=== PATIENT | female | born 1965 | race Caucasian/White ===

== ENCOUNTER 2019-03-02 11:40 | Emergency (ER) | payer SELFPAY ==
[~2019-03-02] VITALS: Ht 175.3 cm; Wt 113.4 kg
--- NOTE | 2019-03-02 11:49 | ED Cough/URI ---
General Chief Complaint: Respiratory Problems Stated Complaint: COUGH; PAIN WITH BREATHING Source: patient Exam Limitations: no limitations History of Present Illness Date Seen by Provider: Mar 02, 2019 Time Seen by Provider: 11:49 Initial Comments 53 yr old female with 42 yr hx of cigarette smoking presents with 2 week hx of nonproductive cough, sore throat and congestion. No hemoptysis or chest pain. Denies fever or chills. Has not improved with Azalea Cameron. No other home treatment. Allergies and Home Medications Allergies Coded Allergies: Penicillins (Verified Allergy, Unknown, 03/02/19) Patient Home Medication List Home Medication List Reviewed: Yes Review of Systems Review of Systems Constitutional: malaise EENTM: nose congestion Respiratory: see HPI Cardiovascular: no symptoms reported Gastrointestinal: no symptoms reported Genitourinary: no symptoms reported : No Musculoskeletal: no symptoms reported Skin: no symptoms reported Psychiatric/Neurological: No Symptoms Reported Hematologic/Lymphatic: No Symptoms Reported Immunological/Allergic: no symptoms reported Past Xqlbcdr-Bcoxsx-Btjkxb Hx Past Med/Social Hx: Reviewed Nursing Past Med/Soc Hx Physical Exam Vital Signs - First Documented 03/02/19 11:44 Temp 98.4 Pulse 60 Resp 20 B/P (MAP) 140/73 (95) Pulse Ox 94 Capillary Refill : Height: '" Weight: lbs. oz. kg; BMI Method: General Appearance: WD/WN, no apparent distress, obese Eyes: Right Eye Normal Inspection, Right Eye PERRL, Right Eye EOMI, Right Eye Abnormal EOM; Bilateral Eye Normal Inspection, Bilateral Eye PERRL, Bilateral Eye EOMI HEENT: PERRL/EOMI, normal ENT inspection, TMs normal, pharynx normal; No scleral icterus (R) Neck: non-tender, full range of motion, supple, normal inspection, carotid bruit Respiratory: chest non-tender, rhonchi (diffusely); No wheezing Cardiovascular: normal peripheral pulses, regular rate, rhythm, no edema, no gallop, no JVD, no murmur Gastrointestinal: normal bowel sounds, non tender, soft, no organomegaly, no pulsatile mass Extremities: normal range of motion, non-tender, normal inspection, no pedal edema, no calf tenderness, normal capillary refill, pelvis stable Neurologic/Psychiatric: waxer tender II-XII nml as tested, no motor/sensory deficits, alert, normal mood/affect, oriented x 3 Skin: normal color, warm/dry Lymphatic: no adenopathy Progress/Results/Core Measures Suspected Sepsis SIRS Temperature: Pulse: Respiratory Rate: Laboratory Tests 03/02/19 12:05: White Blood Count 10.1 Blood Pressure / Mean: Laboratory Tests 03/02/19 12:05: Creatinine 1.08, Platelet Count 236, Total Bilirubin 0.3 Results/Orders Lab Results Laboratory Tests Test 03/02/19 12:05 Range/Units White Blood Count 10.1 4.3-11.0 10^3/uL Red Blood Count 4.59 4.35-5.85 10^6/uL Hemoglobin 14.6 11.5-16.0 G/DL Hematocrit 44 35-52 % Mean Corpuscular Volume 95 80-99 FL Mean Corpuscular Hemoglobin 32 25-34 PG Mean Corpuscular Hemoglobin Concent 33 32-36 G/DL Red Cell Distribution Width 12.3 10.0-14.5 % Platelet Count 236 130-400 10^3/uL Mean Platelet Volume 10.6 H 7.4-10.4 FL Neutrophils (%) (Auto) 65 42-75 % Lymphocytes (%) (Auto) 25 12-44 % Monocytes (%) (Auto) 7 0-12 % Eosinophils (%) (Auto) 2 0-10 % Basophils (%) (Auto) 1 0-10 % Neutrophils # (Auto) 6.5 1.8-7.8 X 10^3 Lymphocytes # (Auto) 2.6 1.0-4.0 X 10^3 Monocytes # (Auto) 0.7 0.0-1.0 X 10^3 Eosinophils # (Auto) 0.2 0.0-0.3 10^3/uL Basophils # (Auto) 0.1 0.0-0.1 10^3/uL Sodium Level 141 135-145 MMOL/L Potassium Level 4.0 3.6-5.0 MMOL/L Chloride Level 105 98-107 MMOL/L Carbon Dioxide Level 16 L 21-32 MMOL/L Anion Gap 20 H 5-14 MMOL/L Blood Urea Nitrogen 14 7-18 MG/DL Creatinine 1.08 0.60-1.30 MG/DL Estimat Glomerular Filtration Rate 53 BUN/Creatinine Ratio 13 Glucose Level 108 H 70-105 MG/DL Calcium Level 9.3 8.5-10.1 MG/DL Corrected Calcium 9.1 8.5-10.1 MG/DL Total Bilirubin 0.3 0.1-1.0 MG/DL Aspartate Amino Transf (AST/SGOT) 15 5-34 U/L Alanine Aminotransferase (ALT/SGPT) 12 0-55 U/L Alkaline Phosphatase 83 40-136 U/L Total Protein 7.4 6.4-8.2 GM/DL Albumin 4.3 3.2-4.5 GM/DL My Orders Orders - LITA PORTILLO MD Cbc With Automated Diff (03/02/19 11:55) Comprehensive Metabolic Panel (03/02/19 11:55) Chest 1 View Ap/Pa Only (03/02/19 11:55) Albuterol/Ipra Inhalation Soln (Duoneb I (03/02/19 12:00) Ekg Tracing (03/02/19 11:55) Monitor-Rhythm Ecg Trace Only (03/02/19 11:55) Svn Small Volume Nebulizer (03/02/19 11:55) Medications Given in ED Current Medications Medications Dose Ordered Sig/Jackson Route Start Time Stop Time Status Last Admin Dose Admin Albuterol/ Ipratropium 3 ml ONCE ONCE INH 03/02/19 12:00 03/02/19 12:04 DC 03/02/19 12:01 3 ML Vital Signs/I&O 03/02/19 11:44 Temp 98.4 Pulse 60 Resp 20 B/P (MAP) 140/73 (95) Pulse Ox 94 Capillary Refill : ECG Initial ECG Impression Date: Mar 02, 2019 Initial ECG Impression Time: 12:14 Initial ECG Rhythm: Normal Sinus Initial ECG Intervals: Normal Initial ECG Impression: Nonspecific Changes Initial ECG Comparisson: No Previous ECG Available Comment Will administer breathing treatment and obtain CXR and labs. Discussed plan with patient who understands and agrees. 1230 Breathing better after RT. Discussed test results and pending results. I anticipate discharge with abx and inhaler. 1251 Reviewed results. Pt very concerned about costs as she does not have insurance. She is PCN allergic so will RX Doxycycline and Albuterol inhaler. Diagnostic Imaging Diagonstic Imaging: Xray Plain Films/CT/US/NM/MRI: chest Comments NAME: VICTOR HUGO ASHRAF [facility] REC#: [id number] PT STATUS: REG ER : 1965 PHYSICIAN: LITA PORTILLO MD ADMIT DATE: 03/02/19/ER FS Draft Date of Exam:03/02/19 CHEST 1 VIEW AP/PA ONLY INDICATION: Chest pain and difficulty breathing Frontal chest obtained at 12 o'clock hours There is no prior study for comparison. There is cardiomegaly with mild central vascular prominence. There is hyperinflation compatible with COPD. There are chronic appearing increased interstitial markings. There is no pneumothorax or pleural fluid. IMPRESSION: Cardiomegaly with mild central vascular prominence with hyperinflation. No focal infiltrate or pneumothorax or pleural fluid. Dictated on workstation # [id number] Dict: 03/02/19 1223 Trans: 03/02/[address] [facility] [id number] Interpreted by: MANISHA CANCINO MD Electronically signed by: Departure Impression Primary Impression: Acute bronchitis Qualified Codes: J20.9 - Acute bronchitis, unspecified Additional Impressions: COPD (chronic obstructive pulmonary disease) Qualified Codes: J44.0 - Chronic obstructive pulmonary disease with acute lower respiratory infection URI (upper respiratory infection) Qualified Codes: J06.9 - Acute upper respiratory infection, unspecified Disposition: 01 HOME, SELF-CARE Condition: Improved Departure-Patient Inst. Decision time for Depature: 12:49 Referrals: NO,LOCAL PHYSICIAN (PCP/Family) Primary Care Physician 2-3 days, sooner if needed Patient Instructions: Exacerbation of COPD, Acute Bronchitis, Adult (DC) Scripts Albuterol Sulfate (VENTOLIN HFA) 1 Puff Puff 2 PUFF INH Q4H, #1 PUFF 1 PUFF = 90 MCG Prov: LITA PORTILLO MD 03/02/19 Doxycycline Hyclate (Doxycycline Hyclate) 100 Mg Tablet 100 MG PO BID, #20 TAB 0 Refills Prov: LITA PORTILLO MD 03/02/19 LITA PORTILLO MD Mar 02, 2019 11:49
[2019-03-02] MEDS ORDERED: RT-ALBUTEROL/IPRATROPIUM 3 ML (DUONEB) VIAL INH ONE (12:00)
[2019-03-02 12:21] LABS: BASOPHILS % (AUTO) 1 % (0-10); EOSINOPHILS % (AUTO) 2 % (0-10); HEMATOCRIT 44 % (35-52); HEMOGLOBIN 14.6 G/DL (11.5-16.0); LYMPHOCYTES # (AUTO) 2.6 X 10^3 (1.0-4.0); LYMPHOCYTES % (AUTO) 25 % (12-44); MEAN CORPUSCULAR HEMOGLOBIN 32 PG (25-34); MEAN CORPUSCULAR HGB CONC 33 G/DL (32-36); MEAN CORPUSCULAR VOLUME 95 FL (80-99); MEAN PLATELET VOLUME 10.6 FL (7.4-10.4); MONOCYTES % (AUTO) 7 % (0-12); NEUTROPHILS # (AUTO) 6.5 X 10^3 (1.8-7.8); NEUTROPHILS % (AUTO) 65 % (42-75); PLATELET COUNT 236 10^3/uL (130-400); RED CELL DISTRIBUTION WIDTH 12.3 % (10.0-14.5); WHITE BLOOD COUNT 10.1 10^3/uL (4.3-11.0)
[2019-03-02 12:22] LABS: BASOPHILS # (AUTO) 0.1 10^3/uL (0.0-0.1); EOSINOPHILS # (AUTO) 0.2 10^3/uL (0.0-0.3); MONOCYTES # (AUTO) 0.7 X 10^3 (0.0-1.0)
--- NOTE | 2019-03-02 12:26 | Diagnostic Imaging Report ---
INDICATION: Chest pain and difficulty breathing Frontal chest obtained at 12 o'clock hours There is no prior study for comparison. There is cardiomegaly with mild central vascular prominence. There is hyperinflation compatible with COPD. There are chronic appearing increased interstitial markings. There is no pneumothorax or pleural fluid. IMPRESSION: Cardiomegaly with mild central vascular prominence with hyperinflation. No focal infiltrate or pneumothorax or pleural fluid. Dictated by: Dictated on workstation # [id number]
[2019-03-02 12:41] LABS: ALBUMIN 4.3 GM/DL (3.2-4.5); BILIRUBIN,TOTAL 0.3 MG/DL (0.1-1.0); CALCIUM 9.3 MG/DL (8.5-10.1); CREATININE SERUM 1.08 MG/DL (0.60-1.30); TOTAL PROTEIN 7.4 GM/DL (6.4-8.2)
[2019-03-02] MEDS ORDERED: RT-ALBUINH INH (12:51)
[2019-03-02] MEDS ORDERED: DOXY100T2 PO (12:51)
[2019-03-02 12:58] VITALS: BP 108/58
== END 2019-03-02 13:00 | disposition home or self-care (01) ==
LOC: ER FS 11:42
DX: J44.1 Chronic obstructive pulmonary disease with (acute) exacerbation (principal); J20.9 Acute bronchitis, unspecified; J44.0 Chronic obstructive pulmonary disease with (acute) lower respiratory infection; Z88.0 Allergy status to penicillin; Z87.891 Personal history of nicotine dependence
CPT/HCPCS: 36415; 71045; 80053; 85025; 93005

== ENCOUNTER 2021-09-20 14:17 | Emergency (ER) | payer OTHER ==
[~2021-09-20] VITALS: Ht 172.7 cm; Wt 110.5 kg
[~2021-09-20 14:17] MED LIST: DOXY100T2 PO; RT-ALBUINH INH
[2021-09-20] MEDS ORDERED: ASPIRIN 81 MG CHEW (CHILDREN'S ASA) PO ONE (14:45)
--- NOTE | 2021-09-20 14:45 | Diagnostic Imaging Report ---
INDICATION: Shortness of breath and leg swelling. TECHNIQUE/COMPARISON: A frontal chest was obtained at 2:23 PM and compared to 03/02/2019. FINDINGS: There is marked cardiomegaly. There is minimal central vascular prominence. There is no focal infiltrate. There is some mild right basilar atelectasis in the costophrenic angle. There is no pleural fluid or pneumothorax. IMPRESSION: Prominent cardiomegaly with mild central vascular prominence. There is some mild atelectatic change or scarring in the right costophrenic angle. Dictated by: Dictated on workstation # [id number]
--- NOTE | 2021-09-20 14:50 | ED Chest Pain ---
General Chief Complaint: Respiratory Problems Stated Complaint: SOB; CHEST TIGHTNESS Source: patient Exam Limitations: no limitations History of Present Illness Date Seen by Provider: Sep 20, 2021 Time Seen by Provider: 14:20 Initial Comments Here with shortness of breath chest tightness that has worsened over the last 12 to 24 hours. She has had several weeks of bronchitis symptoms that are waxing and waning. She was treated with antibiotic and steroid and then got better. She then got a little worse and so the clinic. They did labs and a chest x-ray and thought that she may have some heart failure component set her up with cardiology in November but no new therapy. Patient is quite anxious related to heart stuff and wants to make sure she is not dying from heart attack. Does admit that she is having increased breathing problem. She does smoke but is down from 2 packs a day to 1/2 pack daily over the last month. She has a 44- year history of smoking. Denies fever chills. Denies nausea or vomiting. Reports chest pain is an aching tightness feeling and that has persisted. Nonradiating. Timing/Duration: changing over time (Last 4 weeks), 12-24 hours Severity/Quality: moderate, aching Location: central Radiation: no radiation Activities at Onset: none Prior CP/Workup: no prior cardiac workup ASA po VULCANIZING PRESS OPERATOR: No NTG SL VULCANIZING PRESS OPERATOR: No Associated Symptoms: No abdominal pain, No back pain, No diaphoresis; edema (Mild bilateral lower extremities although better now than previous per the patient.); No fever/chills, No nausea/vomiting; shortness of breath; No weakness Allergies and Home Medications Allergies Coded Allergies: Penicillins (Verified Allergy, Unknown, 03/02/19) Patient Home Medication List Home Medication List Reviewed: Yes Albuterol Sulfate (Ventolin Hfa) 1 Puff Puff, 2 PUFF INH Q4H Prescribed by: LITA PORTILLO on 03/02/19 1251 Doxycycline Hyclate (Doxycycline Hyclate) 100 Mg Tablet, 100 MG PO BID Prescribed by: LITA PORTILLO on 03/02/19 1251 Review of Systems Review of Systems Constitutional: see HPI; No chills, No fever EENTM: No Symptoms Reported Respiratory: See HPI, Cough Cardiovascular: Chest Pain, Edema Gastrointestinal: Denies Diarrhea, Denies Nausea, Denies Vomiting Genitourinary: No Symptoms Reported Musculoskeletal: no symptoms reported Skin: no symptoms reported Psychiatric/Neurological: Anxiety; Denies Headache All Other Systems Reviewed Negative Unless Noted: Yes Past Drrsdxl-Zatmvf-Zakwfz Hx Patient Social History Tobacco Use?: Yes Tobacco type used: Cigarettes Smoking Status: Current Everyday Smoker Use of E-Cig and/or Vaping dev: No Substance use?: Yes Substance type: Marijuana Alcohol Use?: No Pt feels they are or have been: No Immunizations Up To Date First/Initial COVID19 Vaccinat: Not currently vaccinated Seasonal Allergies Seasonal Allergies: No Past Medical History Surgery/Hospitalization HX: COPD Hysterectomy Respiratory: Yes COPD Cardiac: No Neurological: No Genitourinary: No Gastrointestinal: No Musculoskeletal: No Endocrine: No HEENT: No Cancer: No Psychosocial: No Family Medical History Reviewed Nursing Family Hx Physical Exam Vital Signs Vital Signs - First Documented 09/20/21 14:24 Temp 36.0 Pulse 116 Resp 18 B/P (MAP) 153/99 (117) Pulse Ox 95 O2 Delivery Room Air Capillary Refill : Less Than 3 Seconds Height, Weight, BMI Height: 5'9.00" Weight: 250lbs. oz. 113.855045qs; BMI Method:Stated General Appearance: WD/WN, Anxious HEENT: PERRL/EOMI, Pharynx Normal Neck: Non Tender, Supple Respiratory: Wheezing (Bilateral), Other (Coarse sounds with cough or talking) Cardiovascular: No Murmur, Tachycardia Gastrointestinal: Non Tender, Soft Extremity: Normal Range of Motion, Non Tender Neurologic/Psychiatric: Alert, Oriented x3 Skin: Normal Color, Warm/Dry Progress/Results/Core Measures Results/Orders Lab Results Laboratory Tests Test 09/20/21 14:35 Range/Units White Blood Count 7.8 4.3-11.0 10^3/uL Red Blood Count 4.61 3.80-5.11 10^6/uL Hemoglobin 14.8 11.5-16.0 g/dL Hematocrit 43 35-52 % Mean Corpuscular Volume 93 80-99 fL Mean Corpuscular Hemoglobin 32 25-34 pg Mean Corpuscular Hemoglobin Concent 35 32-36 g/dL Red Cell Distribution Width 12.0 10.0-14.5 % Platelet Count 222 130-400 10^3/uL Mean Platelet Volume 10.7 9.0-12.2 fL Immature Granulocyte % (Auto) 0 % Neutrophils (%) (Auto) 59 42-75 % Lymphocytes (%) (Auto) 33 12-44 % Monocytes (%) (Auto) 7 0-12 % Eosinophils (%) (Auto) 1 0-10 % Basophils (%) (Auto) 0 0-10 % Neutrophils # (Auto) 4.5 1.8-7.8 X 10^3 Lymphocytes # (Auto) 2.5 1.0-4.0 X 10^3 Monocytes # (Auto) 0.6 0.0-1.0 X 10^3 Eosinophils # (Auto) 0.1 0.0-0.3 10^3/uL Basophils # (Auto) 0.0 0.0-0.1 10^3/uL Immature Granulocyte # (Auto) 0.0 0.0-0.1 10^3/uL Prothrombin Time 12.3 12.2-14.7 SEC INR Comment 0.9 0.8-1.4 Activated Partial Thromboplast Time 26 24-35 SEC Sodium Level 140 135-145 MMOL/L Potassium Level 4.6 3.6-5.0 MMOL/L Chloride Level 106 98-107 MMOL/L Carbon Dioxide Level 25 21-32 MMOL/L Anion Gap 9 5-14 MMOL/L Blood Urea Nitrogen 14 7-18 MG/DL Creatinine 1.15 0.60-1.30 MG/DL Estimat Glomerular Filtration Rate 49 BUN/Creatinine Ratio 12 Glucose Level 116 H 70-105 MG/DL Calcium Level 10.4 H 8.5-10.1 MG/DL Corrected Calcium 10.1 8.5-10.1 MG/DL Magnesium Level 1.5 L 1.6-2.4 MG/DL Total Bilirubin 0.3 0.1-1.0 MG/DL Aspartate Amino Transf (AST/SGOT) 17 5-34 U/L Alanine Aminotransferase (ALT/SGPT) 11 0-55 U/L Alkaline Phosphatase 69 40-136 U/L Myoglobin 31.6 10.0-92.0 NG/ML Troponin I < 0.30 <0.30 NG/ML Pro-B-Type Natriuretic Peptide 6254.0 H <75.0 PG/ML Total Protein 7.1 6.4-8.2 GM/DL Albumin 4.4 3.2-4.5 GM/DL My Orders Orders - MILES NESS MD Cbc With Automated Diff (09/20/21 14:33) Magnesium (09/20/21 14:33) Chest 1 View Ap/Pa Only (09/20/21 14:33) Ekg Tracing (09/20/21 14:33) Comprehensive Metabolic Panel (09/20/21 14:33) Myoglobin Serum (09/20/21 14:33) Protime With Inr (09/20/21 14:33) Partial Thromboplastin Time (09/20/21:33) O2 (09/20/21 14:33) Monitor-Rhythm Ecg Trace Only (09/20/21 14:33) Lipid Panel (09/21/21 06:00) Aspirin Chewable Tablet (Baby Aspirin Ch (09/20/21 14:45) Ed Iv/Invasive Line Start (09/20/21 14:33) Troponin I Fs (09/20/21 14:33) Probnp Fs (09/20/21 14:33) Furosemide Injection (Lasix Injection) (09/20/21 15:30) Medications Given in ED Current Medications Medications Dose Ordered Sig/Jackson Route Start Time Stop Time Status Last Admin Dose Admin Aspirin 324 mg ONCE ONCE PO 09/20/21 14:45 09/20/21 14:46 DC 09/20/21 14:40 324 MG Vital Signs/I&O 09/20/21 14:24 Temp 36.0 Pulse 116 Resp 18 B/P (MAP) 153/99 (117) Pulse Ox 95 O2 Delivery Room Air Progress Progress Note : Progress Note Seen and evaluated. IV, labs, EKG and chest x-ray ordered. ASA 324 mg p.o. ordered. Monitor patient. 1533: I have discussed the case with Dr. Durbin. He will see her tomorrow in clinic. Recommends Lasix 40 mg IV now and continue outpatient. We will also prescribe magnesium oxide 4 mg daily for 7 days as well as potassium 10 mEq daily for 7 days. I will give short course of prednisone as I believe she does have mild COPD exacerbation. She does have albuterol inhalers. I discussed all this with the patient was very appreciative. Discharged home with return precautions. Patient verbalized understanding instructions and agreement with plan. I did discuss with her about smoking cessation including following up with her doctor for assistance with tobacco cessation. She states that she will. Initial ECG Impression Date: Sep 20, 2021 Initial ECG Impression Time: 14:20 Initial ECG Rate: 112 Initial ECG Rhythm: S.Tach Comment Sinus tachycardia with leftward axis. Left bundle branch block noted. Similar but progressed bundle branch block from 03/02/2019. No evidence of ST elevation GA. Interpreted by me. Diagnostic Imaging Diagonstic Imaging: Xray Plain Films/CT/US/NM/MRI: chest Comments [facility] [place] NAME: VICTOR HUGO ASHRAF [facility] REC#: [id number] PT STATUS: REG ER : 1965 PHYSICIAN: MILES NESS MD ADMIT DATE: 09/20/21/ER FS Draft Date of Exam:09/20/21 CHEST 1 VIEW AP/PA ONLY INDICATION: Shortness of breath and leg swelling. TECHNIQUE/COMPARISON: A frontal chest was obtained at 2:23 PM and compared to 03/02/2019. FINDINGS: There is marked cardiomegaly. There is minimal central vascular prominence. There is no focal infiltrate. There is some mild right basilar atelectasis in the costophrenic angle. There is no pleural fluid or pneumothorax. IMPRESSION: Prominent cardiomegaly with mild central vascular prominence. There is some mild atelectatic change or scarring in the right costophrenic angle. Dictated on workstation # [id number] Dict: 09/20/21 1444 Trans: 09/20/21 1445 [id number] Interpreted by: MANISHA CANCINO MD Electronically signed by: Departure Impression Primary Impression: Acute heart failure Qualified Codes: I50.9 - Heart failure, unspecified Additional Impressions: COPD exacerbation Heavy tobacco smoker Disposition: 01 HOME, SELF-CARE Condition: Stable Departure-Patient Inst. Decision time for Depature: 15:34 Referrals: [facility] (PCP) Primary Care Physician SACHIN DURBIN MD [facility] Patient Instructions: Chronic Obstructive Pulmonary Disease (COPD) (DC), Heart Failure, Adult (DC), Quitting Smoking ED Add. Discharge Instructions: All discharge instructions reviewed with patient and/or family. Voiced understanding. Fill prescriptions and take the magnesium oxide and prednisone tonight. We will start the other medications daily tomorrow. Call Dr. Durbin's office in the morning for appointment same day. Let them know that your case was discussed with him and he would like to see you in a same-day appointment. You should call and make appointment with your doctor to discuss smoking cessation and get smoking cessation help. Return for worse pain, fever, vomiting, weakness, breathing problems or other concerns as needed. Scripts Prednisone (Prednisone) 20 Mg Tab 40 MG PO DAILY, #8 TAB 0 Refills Prov: MILES NESS MD 09/20/21 Potassium Chloride (Potassium Chloride) 10 Meq Capsule.er 10 MEQ PO DAILY for 7 Days, #7 CAP 0 Refills Prov: MILES NESS MD 09/20/21 Furosemide (Lasix) 40 Mg Tablet 40 MG PO DAILY, #7 TAB Prov: MILES NESS MD 09/20/21 Magnesium Oxide (Magnesium Oxide) 400 Mg Tablet 400 MG PO BID, #14 TAB Prov: MILES NESS MD 09/20/21 Copy Copies To 1: SACHIN DURBIN MD FACP [facility] MILES NESS MD Sep 20, 2021 14:50
[2021-09-20 14:52] LABS: BASOPHILS % (AUTO) 0 % (0-10); EOSINOPHILS % (AUTO) 1 % (0-10); HEMATOCRIT 43 % (35-52); HEMOGLOBIN 14.8 g/dL (11.5-16.0); LYMPHOCYTES # (AUTO) 2.5 X 10^3 (1.0-4.0); LYMPHOCYTES % (AUTO) 33 % (12-44); MEAN CORPUSCULAR HEMOGLOBIN 32 pg (25-34); MEAN CORPUSCULAR HGB CONC 35 g/dL (32-36); MEAN CORPUSCULAR VOLUME 93 fL (80-99); MEAN PLATELET VOLUME 10.7 fL (9.0-12.2); MONOCYTES % (AUTO) 7 % (0-12); NEUTROPHILS # (AUTO) 4.5 X 10^3 (1.8-7.8); NEUTROPHILS % (AUTO) 59 % (42-75); PLATELET COUNT 222 10^3/uL (130-400); WHITE BLOOD COUNT 7.8 10^3/uL (4.3-11.0)
[2021-09-20 14:53] LABS: EOSINOPHILS # (AUTO) 0.1 10^3/uL (0.0-0.3); MONOCYTES # (AUTO) 0.6 X 10^3 (0.0-1.0)
[2021-09-20 14:59] LABS: INR 0.9 (0.8-1.4); PROTHROMBIN TIME PATIENT 12.3 SEC (12.2-14.7)
[2021-09-20 15:11] LABS: BILIRUBIN,TOTAL 0.3 MG/DL (0.1-1.0); CALCIUM 10.4 MG/DL (8.5-10.1); CREATININE SERUM 1.15 MG/DL (0.60-1.30); MAGNESIUM 1.5 MG/DL (1.6-2.4); POTASSIUM 4.6 MMOL/L (3.6-5.0)
[2021-09-20 15:12] LABS: ALBUMIN 4.4 GM/DL (3.2-4.5); TOTAL PROTEIN 7.1 GM/DL (6.4-8.2)
[2021-09-20] MEDS ORDERED: FUROSEMIDE 40 MG/4 ML INJ (LASIX) IVP ONE (15:30)
[2021-09-20] MEDS ORDERED: MAGN400T50 PO (15:41)
[2021-09-20] MEDS ORDERED: POTA10CA43 PO (15:41)
[2021-09-20] MEDS ORDERED: PRD20T PO (15:41)
[2021-09-20] MEDS ORDERED: FURO-124 PO (15:41)
[2021-09-20 16:10] VITALS: BP 148/79
== END 2021-09-20 16:10 | disposition home or self-care (01) ==
LOC: EDUNIT# 14:17 → ER FS 14:19
DX: I50.9 Heart failure, unspecified (principal); J44.1 Chronic obstructive pulmonary disease with (acute) exacerbation; R00.0 Tachycardia, unspecified; F17.210 Nicotine dependence, cigarettes, uncomplicated
CPT/HCPCS: 36415; 71045; 80053; 83735; 83874; 83880; 84484; 85025; 85610; 85730; 93005; 93041

== ENCOUNTER 2021-10-03 08:00 | Inpatient (IN) | payer OTHER ==
[~2021-10-03] VITALS: Ht 175.2 cm; Wt 110.1 kg
[2021-10-03] VITALS (16 sets, daily range): BP systolic 89–126; BP diastolic 47–78
[2021-10-03] MEDS: NS IV 1000 ML 1,000 ML IV SCH ×3 (07:22→23:40)
[2021-10-03 07:34] LABS: HEMATOCRIT 49 % (35-52); HEMOGLOBIN 16.5 g/dL (11.5-16.0); MEAN CORPUSCULAR HEMOGLOBIN 32 pg (25-34); MEAN CORPUSCULAR HGB CONC 34 g/dL (32-36); MEAN CORPUSCULAR VOLUME 95 fL (80-99); MEAN PLATELET VOLUME 10.9 fL (9.0-12.2); PLATELET COUNT 231 10^3/uL (130-400); WHITE BLOOD COUNT 8.3 10^3/uL (4.3-11.0)
[2021-10-03 07:49] LABS: PROTHROMBIN TIME PATIENT 13.7 SEC (12.2-14.7)
[2021-10-03 07:51] LABS: ALBUMIN 4.7 GM/DL (3.2-4.5); CHLORIDE 104 MMOL/L (98-107); POTASSIUM 3.9 MMOL/L (3.6-5.0); SODIUM 142 MMOL/L (135-145)
[2021-10-03 07:52] LABS: CALCIUM 9.8 MG/DL (8.5-10.1)
[2021-10-03 07:53] LABS: TRIGLYCERIDES 170 MG/DL (<150); VLDL CHOLESTEROL 34 MG/DL (5-40)
[2021-10-03 07:54] LABS: GLUCOSE 107 MG/DL (70-105); TOTAL PROTEIN 7.8 GM/DL (6.4-8.2)
[2021-10-03 07:55] LABS: BILIRUBIN,TOTAL 0.7 MG/DL (0.1-1.0); CARBON DIOXIDE 25 MMOL/L (21-32)
[2021-10-03 07:57] LABS: ALKALINE PHOSPHATASE 67 U/L (40-136); CREATININE SERUM 1.36 MG/DL (0.60-1.30); GFR ESTIMATED 40
[2021-10-03 07:58] LABS: BUN/CREATININE RATIO 19; CHOLESTEROL 240 MG/DL (< 200)
[2021-10-03 07:59] LABS: HDL CHOLESTEROL 38 MG/DL (40-60)
[2021-10-03 08:00] LABS: ALANINE AMINOTRANSFERASE 19 U/L (0-55)
[~2021-10-03 08:00] MED LIST changes: +ASPI-999 PO; +FURO-124 PO; +FURO40TA4 PO; +HEParin (CATH LAB) 2,000 ML IV ONE; +LIDOCAINE 1% INJ 20 ML 20 ML VIAL ONE; +MAGN400T50 PO; +MAGN400T7 PO; +METO-333 PO; +NS IV 1000 ML 1,000 ML ONE; +POTA10CA43 PO; +POTA10TA37 PO; +PRD20T PO
[2021-10-03] MEDS ORDERED: fentaNYL INJ 100 MCG/2 ML AMP ONE (08:08)
[2021-10-03] MEDS ORDERED: MIDAZOLAM 5 MG/5 ML (VERSED) VIAL ONE (08:08)
--- NOTE | 2021-10-03 09:17 | Cardiac Procedure Note-CS/ASA ---
Pre-Procedure Note Pre-Op Procedure Note H&P Reviewed The H&P was reviewed, patient examined and no changes noted. Date H&P Reviewed: Oct 03, 2021 Time H&P Reviewed: 08:45 Conscious Sedation Pre-Proced Time 08:45 ASA Score 4 For ASA 3 and 4: Consider anesthesia and medical clearance. Also, for patients with a history of failed moderate sedation consider anesthesia. Airway Lungs Heart ASA score ASA 1: a normal healthy patient ASA 2: a patient with a mild systemic disease (mid diabetes, controlled hypertension, obesity ASA 3: a patient with a severe systemic disease that limits activity (angina, COPD, prior Myocardial infarction) ASA 4: a patient with an incapacitating disease that is a constant threat to life (CHF, renal failure) ASA 5: a moribund patient not expected to survive 24 hrs. (ruptured aneurysm) ASA 6: a declared brain- patient whose organs are being harvested. For emergent operations, add the letter E after the classification Mallampati Classification Grade 2 Sedation Plan Analgesia, Amnesia, Plan communicated to team members, Discussed options with patient/fam, Discussed risks with patient/fam The patient is an appropriate candidate to undergo the planned procedure, sedation, and anesthesia. The patient immediately re-assessed prior to indication. SACHIN COLEMAN MD FACP FAC [facility] Oct 03, 2021 09:17
--- NOTE | 2021-10-03 09:42 | Cardiology History & Physical ---
HPI-Cardiology Cardiology H&P Date of Admission 10-03-21 Primary Care Physician Magdy Gonsalez - [facility] Of Attending Physician Alyson Durbin MD Facp Fac [facility] Consulting Physician KAREN Ms. Maharaj is a 56 yr old female being admitted to ICU 10 post cardiac cath d/t NICM with acute systolic heart failure. She had presented with progressive dyspnea, lower extremity swelling, chest discomfort and new onset of congestive heart failure on Sep 20 to the [facility] ED. She is currently reporting SOB. No c/o palpitations, syncope, near syncope or LE swelling at this time. Review of Systems-Cardiology Review of Systems Constitutional: No chills, No fever Eyes: No vision change Ears/Nose/Throat: No epistaxis, No recent hearing loss Respiratory: As described under HPI Cardiovascular: As described under HPI Gastrointestinal: No constipation, No diarrhea, No nausea, No vomiting Genitourinary: No dysuria Musculoskeletal: no symptoms reported Skin: No rash on exposed areas, No ulcerations on exposed areas Psychiatric/Neurological: No focal weakness, No syncope Hematologic: No bleeding abnormalities [id number]-[id number] Hx Patient Social History 2nd Hand Smoke Exposure: Yes Past Medical History PMH As described under Assessment. Family Medical History Family Medical History: No known h/o CAD or SCD. Allergies and Home Medications Allergies Coded Allergies: Penicillins (Verified Allergy, Unknown, 03/02/19) Patient Home Medication List Aspirin (Aspirin) 81 Mg Tab.chew, 81 MG PO DAILY, (Reported) Entered as Reported by: YAN WEBER on 10/03/21737 Last Action: Continued Furosemide (Furosemide) 40 Mg Tablet, 40 MG PO DAILY, (Reported) Entered as Reported by: YAN WEBER on 10/03/21737 Last Action: Held Magnesium Oxide (Magnesium Oxide) 400 Mg Tablet, 400 MG PO DAILY, (Reported) Entered as Reported by: YAN WEBER on 10/03/21737 Last Action: Converted Metoprolol Tartrate (Metoprolol Tartrate) 25 Mg Tablet, 25 MG PO BID, (Reported) Entered as Reported by: YAN WEBER on 10/03/21737 Last Action: Held Potassium Chloride (Potassium Chloride) 10 Meq Tab.er.prt, 10 MEQ PO DAILY, (Reported) Entered as Reported by: AYN WEBER on 10/03/21737 Last Action: Held Discontinued Medications Albuterol Sulfate (Ventolin Hfa) 1 Puff Puff, 2 PUFF INH Q4H Discontinued Reason: No Longer Taking Prescribed by: LITA PORTILLO on 03/02/191250 Last Action: Discontinued Doxycycline Hyclate (Doxycycline Hyclate) 100 Mg Tablet, 100 MG PO BID Discontinued Reason: Referral/FU Appt-Addtl Prescribed by: LITA PORTILLO on 03/02/191250 Last Action: Discontinued Furosemide (Lasix) 40 Mg Tablet, 40 MG PO DAILY Discontinued Reason: Duplicate Order Prescribed by: MILES NESS on 09/20/211540 Last Action: Discontinued Magnesium Oxide (Magnesium Oxide) 400 Mg Tablet, 400 MG PO BID Discontinued Reason: Duplicate Order Prescribed by: MILES NESS on 09/20/211540 Last Action: Discontinued Potassium Chloride (Potassium Chloride) 10 Meq Capsule.er, 10 MEQ PO DAILY Discontinued Reason: Duplicate Order Prescribed by: MILES NESS on 09/20/211540 Last Action: Discontinued Prednisone (Prednisone) 20 Mg Tab, 40 MG PO DAILY Discontinued Reason: No Longer Taking Prescribed by: MILES NESS on 09/20/211540 Last Action: Discontinued Physical Exam-Cardiology Physical Exam Vital Signs/I&O 10/03/21 10/03/21 10/04/21 10/04/21 21:00 21:00 00:00 01:00 Pulse 89 66 74 Resp 18 B/P (MAP) 96/60 (72) 104/64 (77) Pulse Ox 91 92 90 O2 Delivery Nasal Cannula Nasal Cannula Nasal Cannula O2 Flow Rate 2.00 2.00 2.00 10/04/21 10/04/21 10/04/21 04:00 07:00 07:49 Temp 36.2 Pulse 77 77 Resp 29 B/P (MAP) 94/53 (67) Pulse Ox 89 O2 Delivery Nasal Cannula O2 Flow Rate 2.00 10/04/21 00:00 Intake Total 2090 ml Balance 2090 ml Capillary Refill : Constitutional: AAO x 3, well-developed, well-nourished HEENT: PERRL, hearing is well preserved, oral hygience is good Neck: No carotid bruit; carotid pulses are 2 + bilaterally Respiratory: No accessory muscle use, No respiratory distress; chest expansion is symmetric, chest is bilaterally symmetric, other (good air entry) Cardiovascular: regular rate-rhythm; No JVD; S1 and S2 Gastrointestinal: No tender; soft, round, audible bowel sounds Extremities: no lower extremity edema bilateral Neurologic/Psychiatric: grossly intact (moves all extremities) Skin: No rash on exposed areas, No ulcerations on exposed areas Data Review Labs Laboratory Tests 10/04/21 04:45: Sodium Level 140, Potassium Level 4.1, Chloride Level 107, Carbon Dioxide Level 21, Anion Gap 12, Blood Urea Nitrogen 25H, Creatinine 1.19, Estimat Glomerular Filtration Rate 47, BUN/Creatinine Ratio 21, Glucose Level 102, Calcium Level 8.0L, Magnesium Level 1.8 Microbiology 10/03/21 MRSA Screen - Final, Complete MRSA not isolated A/P-Cardiology Assessment/Admission Diagnosis NICM - Cardiac cath of 10-03-21 showed no significant CAD. LVEF 20%. LVEDP 16 mmHg Acute decompensated systolic CHF Renal insufficiency of undetermined length of time Chronic tobacco use (average 2 ppd for more than 40 years) Abnormal ECG ECG on 09/20/21: NSR and LBBB Admission Status: Inpatient Order (span 2 midnights) Reason for Inpatient Admission: Newly diagnosed NICM with LVEF less than 20% Acute systolic CHF with decompensating symptoms Discussion and Recomendations Admit to [facility] Life Vest d/t LVEF 20% seen on cardiac cath of 10-03-21 Decompensated systolic CHF - treat with IV diuretics Change BB to Coreg - low dose and adjust as tolerated Start Entresto Potassium replacement Montior lab closely Continue IVF at 75ml/her d/t renal insufficiency and IV dye given during cardiac cath today Replace electrolytes as indicated Further recs will be based on her hospital course JAYLIN DE OLIVEIRA Oct 03, 2021 09:42
[2021-10-03] MEDS ORDERED: FUROSEMIDE 40 MG/4 ML INJ (LASIX) IVP ONE (10:00)
[2021-10-03] MEDS ORDERED: FLU QUADRIvalent (3YOA+) 60 mcg/0.5 ml 2021-22(AFLURIA) IM ONE (10:00)
[2021-10-03] MEDS ORDERED: KCL 20 MEQ TAB (K-DUR) PO ONE (10:15)
[2021-10-03] MEDS: MAGNESIUM OXIDE (MAG-OX)400 MG TAB PO SCH (10:37)
--- NOTE | 2021-10-03 10:54 | Cardiology History & Physical ---
HPI-Cardiology Cardiology H&P Date of Admission 10/03/21 Primary Care Physician Magdy Gonsalez - Chc Of Attending Physician Alyson Coleman MD MA FACP [facility] Consulting Physician KAREN CC Shortness of breath HPI Ms. Maharaj is a 56 yr old female being admitted to ICU 10 post cardiac cath d/t NIC with acute systolic heart failure. She had presented with progressive dyspnea, lower extremity swelling, chest discomfort and new onset of congestive heart failure on Sep 20 to the [facility] ED. She is currently reporting SOB. No c/o palpitations, syncope, near syncope or LE swelling at this time. Review of Systems-Cardiology Review of Systems Constitutional: No chills, No fever Eyes: No vision change Ears/Nose/Throat: No epistaxis, No recent hearing loss Respiratory: As described under HPI Cardiovascular: As described under HPI Gastrointestinal: No constipation, No diarrhea, No nausea, No vomiting Genitourinary: No dysuria Musculoskeletal: no symptoms reported Skin: No rash on exposed areas, No ulcerations on exposed areas Psychiatric/Neurological: No focal weakness, No syncope Hematologic: No bleeding abnormalities LVT-Wrulny-Loetnh Hx Patient Social History Smoking Status: Current Everyday Smoker 2nd Hand Smoke Exposure: Yes Have you traveled recently?: No Alcohol Use?: No Substance type: Marijuana Pt feels they are or have been: No Tobacco type used: Cigarettes Past Medical History PMH As described under Assessment. Family Medical History Family Medical History: No known h/o CAD or SCD. Allergies and Home Medications Allergies Coded Allergies: Penicillins (Verified Allergy, Unknown, 03/02/19) Patient Home Medication List Home Medication List Reviewed: Yes Aspirin (Aspirin) 81 Mg Tab.chew, 81 MG PO DAILY, (Reported) Entered as Reported by: YAN WEBER on 10/03/21737 Last Action: Continued Furosemide (Furosemide) 40 Mg Tablet, 40 MG PO DAILY, (Reported) Entered as Reported by: YAN WEBER on 10/03/21737 Last Action: Held Magnesium Oxide (Magnesium Oxide) 400 Mg Tablet, 400 MG PO DAILY, (Reported) Entered as Reported by: YAN WEBER on 10/03/21737 Last Action: Converted Metoprolol Tartrate (Metoprolol Tartrate) 25 Mg Tablet, 25 MG PO BID, (Reported) Entered as Reported by: YAN WEBER on 10/03/21737 Last Action: Held Potassium Chloride (Potassium Chloride) 10 Meq Tab.er.prt, 10 MEQ PO DAILY, (Reported) Entered as Reported by: YAN WEBER on 10/03/21737 Last Action: Held Discontinued Medications Albuterol Sulfate (Ventolin Hfa) 1 Puff Puff, 2 PUFF INH Q4H Discontinued Reason: No Longer Taking Prescribed by: LITA PORTILLO on 03/02/191250 Last Action: Discontinued Doxycycline Hyclate (Doxycycline Hyclate) 100 Mg Tablet, 100 MG PO BID Discontinued Reason: Referral/FU Appt-Addtl Prescribed by: LITA PORTILLO on 03/02/191250 Last Action: Discontinued Furosemide (Lasix) 40 Mg Tablet, 40 MG PO DAILY Discontinued Reason: Duplicate Order Prescribed by: MILES NESS on 09/20/211540 Last Action: Discontinued Magnesium Oxide (Magnesium Oxide) 400 Mg Tablet, 400 MG PO BID Discontinued Reason: Duplicate Order Prescribed by: MILES NESS on 09/20/211540 Last Action: Discontinued Potassium Chloride (Potassium Chloride) 10 Meq Capsule.er, 10 MEQ PO DAILY Discontinued Reason: Duplicate Order Prescribed by: MILES NESS on 09/20/211540 Last Action: Discontinued Prednisone (Prednisone) 20 Mg Tab, 40 MG PO DAILY Discontinued Reason: No Longer Taking Prescribed by: MILES NESS on 09/20/211540 Last Action: Discontinued Physical Exam-Cardiology Physical Exam Vital Signs/I&O 10/03/21 10/03/21 10/03/21 10/03/21 07:27 09:35 09:42 09:45 Temp 36.2 35.5 Pulse 100 74 72 Resp 16 18 B/P (MAP) 126/75 (92) 96/66 (76) Pulse Ox 93 93 O2 Delivery Room Air Nasal Cannula O2 Flow Rate 2.00 10/03/21 10/03/21 10/03/21 10:00 10:15 10:30 Pulse 75 71 69 Resp 17 28 17 B/P (MAP) 109/69 (82) 97/65 (74) 95/54 (77) Pulse Ox 95 94 94 O2 Delivery Nasal Cannula Nasal Cannula Nasal Cannula O2 Flow Rate 2.00 2.00 2.00 Capillary Refill : Constitutional: AAO x 3, well-developed, well-nourished HEENT: PERRL, hearing is well preserved, oral hygience is good Neck: No carotid bruit; carotid pulses are 2 + bilaterally Respiratory: No accessory muscle use, No respiratory distress; chest expansion is symmetric, chest is bilaterally symmetric, other (good air entry) Cardiovascular: regular rate-rhythm; No JVD; S1 and S2 Gastrointestinal: No tender; soft, round, audible bowel sounds Extremities: no lower extremity edema bilateral Neurologic/Psychiatric: grossly intact (moves all extremities) Skin: No rash on exposed areas, No ulcerations on exposed areas Data Review Labs Laboratory Tests 10/03/21 07:30: White Blood Count 8.3, Red Blood Count 5.16H, Hemoglobin 16.5H, Hematocrit 49, Mean Corpuscular Volume 95, Mean Corpuscular Hemoglobin 32, Mean Corpuscular Hemoglobin Concent 34, Red Cell Distribution Width 11.9, Platelet Count 231, Mean Platelet Volume 10.9, Prothrombin Time 13.7, INR Comment 1.0, Activated Partial Thromboplast Time 28, Sodium Level 142, Potassium Level 3.9, Chloride Level 104, Carbon Dioxide Level 25, Anion Gap 13, Blood Urea Nitrogen 26H, Creatinine 1.36H, Estimat Glomerular Filtration Rate 40, BUN/Creatinine Ratio 19, Glucose Level 107H, Calcium Level 9.8, Corrected Calcium , Total Bilirubin 0.7, Aspartate Amino Transf (AST/SGOT) 25, Alanine Aminotransferase (ALT/SGPT) 19, Alkaline Phosphatase 67, Total Protein 7.8, Albumin 4.7H, Triglycerides Level 170H, Cholesterol Level 240H, LDL Cholesterol Direct 184H, VLDL Cholesterol 34, HDL Cholesterol 38L A/P-Cardiology Assessment/Admission Diagnosis NIC - Cardiac cath of 10-03-21 showed no significant CAD. LVEF 20%. LVEDP 16 mmHg Acute decompensated systolic CHF, NYHA class 3 Renal insufficiency of undetermined length of time Chronic tobacco use (average 2 ppd for more than 40 years) Abnormal ECG ECG on 09/20/21: NSR and LBBB Admission Status: Inpatient Order (span 2 midnights) Reason for Inpatient Admission: Decompensated CHF and newly diagnosed, sever, nonischemic cardiomyopathy Discussion and Recomendations Admit to [facility] Life Vest d/t LVEF 20% seen on cardiac cath of 10-03-21 Decompensated systolic CHF - treat with IV diuretics Change BB to Coreg - low dose and adjust as tolerated Start Entresto Potassium replacement Montior lab closely Continue IVF at 75ml/her d/t renal insufficiency and IV dye given during cardiac cath today Replace electrolytes as indicated Further recs will be based on her hospital course ALYSON COLEMAN MD FACP FAC [facility]S Oct 03, 2021 10:54
--- NOTE | 2021-10-03 12:50 | CARDIAC CATHETERIZATION ---
DATE OF SERVICE: 10/03/2021 CARDIAC CATHETERIZATION REPORT The patient is a 56-year-old lady who has recently been diagnosed with congestive heart failure and cardiomegaly. Informed consent was obtained for cardiac catheterization. DESCRIPTION OF PROCEDURE: [facility] fasting [facility]. Right groin was prepared and draped in the usual sterile fashion. Lidocaine 1% was used for local anesthesia. Modified Seldinger technique was used to advance a 5-Montserratian sheath into the right femoral artery. A 5-Montserratian JL4 catheter for left coronary angiography, 5-Montserratian JR4 catheter for right coronary angiography, 5-Montserratian pigtail catheter was used for left heart catheterization and left ventricular angiography. Angiography of the right femoral artery was carried out with sheath. At the end of the procedure, Mynx was used to achieve hemostasis. She tolerated the procedure well. HEMODYNAMICS: Left ventricular end-diastolic pressure following coronary angiography was 16 mmHg. There was no significant pressure gradient on pullback across the aortic valve. Ascending aortic pressure was 93/68 with a mean of 70 mmHg. CORONARY ANGIOGRAPHY: Left main coronary artery is very short. Left anterior descending and left circumflex artery do not exhibit any significant disease. Right coronary artery is dominant, does not exhibit significant disease. LEFT VENTRICULAR ANGIOGRAPHY: Left ventricular angiography indicates considerable cardiomegaly. Global left ventricular systolic function is impaired. There is global hypokinesis. Left ventricular ejection fraction approximately 20%. CONCLUSIONS: 1. No angiographically significant coronary artery disease. 2. Dilated cardiomyopathy, nonischemic, with global hypokinesis of left ventricle and left ventricular ejection fraction of 20%. 3. Left ventricular end-diastolic pressure is 16 mmHg. DISCUSSION AND RECOMMENDATIONS: She is being hospitalized for optimization of her regimen for cardiomyopathy and acute systolic congestive heart failure. She will be treated with beta blockers and Entresto. Diuretics will be used as needed and as tolerated. She may need a LifeVest for now. Job ID: [id number] DocumentID: [id number] Dictated Date: 10/03/2021 09:13:23 Wheel Press Clerk Date: 10/03/2021 12:49:56 Dictated By: SACHIN COLEMAN MD, MA, FACP, FACC,
[2021-10-03] MEDS: SACUBITRIL/VALSARTAN 24/26 MG (ENTRESTO) TABLET PO SCH (21:24)
[2021-10-03] MEDS: ACETAMINOPHEN 325 MG TABLET PO PRN (22:18)
[2021-10-04] VITALS (10 sets, daily range): BP systolic 92–110; BP diastolic 53–77
[2021-10-04 05:29] LABS: POTASSIUM 4.1 MMOL/L (3.6-5.0)
[2021-10-04 05:34] LABS: CREATININE SERUM 1.19 MG/DL (0.60-1.30)
[2021-10-04 05:37] LABS: MAGNESIUM 1.8 MG/DL (1.6-2.4)
[2021-10-04] MEDS: KCL 20 MEQ TAB (K-DUR) PO SCH (06:11)
[2021-10-04] MEDS: SACUBITRIL/VALSARTAN 24/26 MG (ENTRESTO) TABLET PO SCH ×3 (08:45→21:30)
[2021-10-04] MEDS: MAGNESIUM OXIDE (MAG-OX)400 MG TAB PO SCH (08:45)
[2021-10-04] MEDS: ASPIRIN 81 MG CHEW (CHILDREN'S ASA) PO SCH (08:45)
[2021-10-04] MEDS: FUROSEMIDE 40 MG/4 ML INJ (LASIX) IVP SCH ×2 (08:48→10:12)
--- NOTE | 2021-10-04 08:52 | Progress Note - Cardiology ---
Cardiology SOAP Progress Note Subjective: Sitting up in bed eating morning meal No c/o CP or palpitations Feels SOB is better than yesterday Objective: I&O/Vital Signs 10/04/21 10/04/21 10/04/21 10/04/21 04:00 07:00 07:49 08:00 Temp 36.2 Pulse 77 77 Resp 29 B/P (MAP) 94/53 (67) Pulse Ox 89 O2 Delivery Nasal Cannula Nasal Cannula O2 Flow Rate 2.00 2.00 10/04/21 10/04/21 10/04/21 10/04/21 08:00 09:14 12:00 12:53 Pulse 75 81 76 Resp 26 22 B/P (MAP) 93/69 (77) 102/72 (82) Pulse Ox 93 92 93 O2 Delivery Nasal Cannula Nasal Cannula Nasal Cannula O2 Flow Rate 2.00 2.00 2.00 10/04/21 00:00 Intake Total 2090 ml Balance 2090 ml Weight (Pounds): 250 Weight (Calculated Kilograms): [id number] Side: right Groin site without hematoma: Yes Condition: DP/PT pulses palpable Bruising: mild bruising Constitutional: AAO x 3, well-developed, well-nourished Respiratory: No accessory muscle use, No respiratory distress; chest expansion is symmetric, chest is bilaterally symmetric, rhonchi (scattered) Cardiovascular: regular rate-rhythm; No JVD; S1 and S2 Gastrointestional: No tender; soft, round, audible bowel sounds Extremities: no lower extremity edema bilateral Neurologic/Psychiatric: grossly intact (moves all extremities) Skin: No rash on exposed areas, No ulcerations on exposed areas Results/Procedures: Labs Laboratory Tests 10/04/21 04:45: Sodium Level 140, Potassium Level 4.1, Chloride Level 107, Carbon Dioxide Level 21, Anion Gap 12, Blood Urea Nitrogen 25H, Creatinine 1.19, Estimat Glomerular Filtration Rate 47, BUN/Creatinine Ratio 21, Glucose Level 102, Calcium Level 8.0L, Magnesium Level 1.8 Microbiology 10/03/21 MRSA Screen - Final, Complete MRSA not isolated A/P: Assessment: NICM - Cardiac cath of 10-03-21 showed no significant CAD. LVEF 20%. LVEDP 16 mmHg - Life-Vest - Coreg and Entresto started - titrate doses based on tolerance Acute decompensated systolic CHF, NYHA class 3 - clinically improving Renal insufficiency of undetermined length of time - improved following IVF Chronic tobacco use (average 2 ppd for more than 40 years) - cessation advised Abnormal ECG ECG on 09/20/21: NSR and LBBB Plan: Somewhat low BP (albeit asymptomatic) Life Vest d/t LVEF 20% seen on cardiac cath of 10-03-21 Decompensated systolic CHF - treat with IV diuretics Continue Entresto and Coreg - adjust doses as BP will allow and as she is able to tolerate Montior lab closely Renal function improved - DC IVF Replace electrolytes as indicated JAYLIN DE OLIVEIRA [facility] Oct 04, 2021 08:52
--- NOTE | 2021-10-04 13:18 | Progress Note - Cardiology ---
Cardiology SOAP Progress Note Subjective: No cp or palp or syncope Shortness of breath somewhat better Gen malaise No n/v/d Objective: I&O/Vital Signs 10/04/21 10/04/21 10/04/21 10/04/21 04:00 07:00 07:49 08:00 Temp 36.2 Pulse 77 77 Resp 29 B/P (MAP) 94/53 (67) Pulse Ox 89 O2 Delivery Nasal Cannula Nasal Cannula O2 Flow Rate 2.00 2.00 10/04/21 10/04/21 10/04/21 10/04/21 08:00 09:14 12:00 12:53 Pulse 75 81 76 Resp 26 22 B/P (MAP) 93/69 (77) 102/72 (82) Pulse Ox 93 92 93 O2 Delivery Nasal Cannula Nasal Cannula Nasal Cannula O2 Flow Rate 2.00 2.00 2.00 10/04/21 00:00 Intake Total 2090 ml Balance 2090 ml Weight (Pounds): 250 Weight (Calculated Kilograms): 113.575121 Side: right Groin site without hematoma: Yes Condition: DP/PT pulses palpable Bruising: mild bruising Constitutional: AAO x 3, well-developed, well-nourished Respiratory: No accessory muscle use, No respiratory distress; chest expansion is symmetric, chest is bilaterally symmetric, rhonchi (scattered) Cardiovascular: regular rate-rhythm; No JVD; S1 and S2 Gastrointestional: No tender; soft, round, audible bowel sounds Extremities: no lower extremity edema bilateral Neurologic/Psychiatric: grossly intact (moves all extremities) Skin: No rash on exposed areas, No ulcerations on exposed areas Results/Procedures: Labs Laboratory Tests 10/04/21 04:45: Sodium Level 140, Potassium Level 4.1, Chloride Level 107, Carbon Dioxide Level 21, Anion Gap 12, Blood Urea Nitrogen 25H, Creatinine 1.19, Estimat Glomerular Filtration Rate 47, BUN/Creatinine Ratio 21, Glucose Level 102, Calcium Level 8.0L, Magnesium Level 1.8 Microbiology 10/03/21 MRSA Screen - Final, Complete MRSA not isolated Laboratory Tests 10/03/21 07:30 10/04/21 04:45 A/P: Assessment: NICM - Cardiac cath of 10-03-21 showed no significant CAD. LVEF 20%. LVEDP 16 mmHg - Life-Vest - Coreg and Entresto started - titrate doses based on tolerance Acute decompensated systolic CHF, NYHA class 3 - clinically improving Renal insufficiency of undetermined length of time - improved following IVF Chronic tobacco use (average 2 ppd for more than 40 years) - cessation advised Abnormal ECG ECG on 09/20/21: NSR and LBBB Plan: Somewhat low BP (albeit asymptomatic) Life Vest d/t LVEF 20% seen on cardiac cath of 10-03-21 Decompensated systolic CHF - treat with IV diuretics Continue Entresto and Coreg - adjust doses as BP will allow and as she is able to tolerate Monitor lab closely Renal function improved - DC IVF Replace electrolytes as indicated SACHIN COLEMAN MD FACP FAC [facility]S Oct 04, 2021 13:18
[2021-10-04] MEDS: NS IV 1000 ML 1,000 ML IV SCH (14:19)
[2021-10-04] MEDS: ACETAMINOPHEN 325 MG TABLET PO PRN (21:30)
[2021-10-05] VITALS (55 sets, daily range): BP systolic 60–134; BP diastolic 34–92
[2021-10-05] MEDS: NS IV 1000 ML 1,000 ML IV SCH (01:23)
[2021-10-05] MEDS ORDERED: DOBUTamine DRIP 250 ML IV ONE (02:16)
[2021-10-05] MEDS: DOBUTamine DRIP 250 ML IV SCH ×3 (02:21→17:00)
[2021-10-05] MEDS ORDERED: DOPamine DRIP 250 ML IV SCH (04:45)
[2021-10-05 06:05] LABS: BASOPHILS % (AUTO) 0 % (0-10); EOSINOPHILS # (AUTO) 0.1 10^3/uL (0.0-0.3); EOSINOPHILS % (AUTO) 1 % (0-10); HEMATOCRIT 40 % (35-52); HEMOGLOBIN 13.4 g/dL (11.5-16.0); LYMPHOCYTES # (AUTO) 2.3 10^3/uL (1.0-4.0); LYMPHOCYTES % (AUTO) 31 % (12-44); MEAN CORPUSCULAR HEMOGLOBIN 32 pg (25-34); MEAN CORPUSCULAR HGB CONC 34 g/dL (32-36); MEAN CORPUSCULAR VOLUME 95 fL (80-99); MEAN PLATELET VOLUME 11.3 fL (9.0-12.2); MONOCYTES # (AUTO) 0.6 10^3/uL (0.0-1.0); MONOCYTES % (AUTO) 9 % (0-12); NEUTROPHILS # (AUTO) 4.3 10^3/uL (1.8-7.8); NEUTROPHILS % (AUTO) 58 % (42-75); PLATELET COUNT 153 10^3/uL (130-400); WHITE BLOOD COUNT 7.3 10^3/uL (4.3-11.0)
[2021-10-05] MEDS ORDERED: ALBUMIN 5% 12.5 GM/250 ML 250 ML IV ONE (06:05)
[2021-10-05] MEDS ORDERED: NOREPINEPHRINE 8 MG/250 ML 250 ML IV ONE (06:19)
[2021-10-05] MEDS: NOREPINEPHRINE 8 MG/250 ML 250 ML IV SCH ×2 (06:23→16:55)
[2021-10-05 06:48] LABS: CALCIUM 8.4 MG/DL (8.5-10.1); CREATININE SERUM 1.27 MG/DL (0.60-1.30); MAGNESIUM 1.8 MG/DL (1.6-2.4); POTASSIUM 3.9 MMOL/L (3.6-5.0)
[2021-10-05] MEDS: MAGNESIUM 1 GM/100 ML IVPB 100 ML IV SCH (06:53)
[2021-10-05] MEDS: POTASSIUM CL 10MEQ/50ML IVPB 50 ML IV SCH (06:53)
[2021-10-05] MEDS ORDERED: ALBUMIN 5% 12.5 GM/250 ML 250 ML IV STA (06:54)
[2021-10-05] MEDS: KCL 20 MEQ TAB (K-DUR) PO SCH ×2 (06:54→10:41)
[2021-10-05 07:08] LABS: PHOSPHORUS 2.8 MG/DL (2.3-4.7)
--- NOTE | 2021-10-05 08:35 | Progress Note - Cardiology ---
Cardiology SOAP Progress Note Subjective: Sitting up in bed Reports last night she developed pain in between her shoulder blades, nauseated, headache and starting dry heaving She reports she generally felt unwell overnight She states she feels better this morning, but still has a headache and feels weak Objective: I&O/Vital Signs 10/05/21 10/05/21 10/05/21 10/05/21 21:00 22:00 22:20 22:51 Temp 36.5 Pulse 84 85 90 Resp 21 18 B/P (MAP) 100/67 (78) 129/82 (98) 129/82 Pulse Ox 93 92 O2 Delivery Nasal Cannula Nasal Cannula Nasal Cannula O2 Flow Rate 5.00 5.00 5.00 10/05/21 10/06/21 10/06/21 10/06/21 23:00 00:00 00:22 00:23 Pulse 78 75 Resp 18 18 B/P (MAP) 95/47 (63) 83/50 (61) 83/50 Pulse Ox 94 92 O2 Delivery Nasal Cannula Nasal Cannula Nasal Cannula O2 Flow Rate 5.00 5.00 5.00 FiO2 93 10/06/21 10/06/21 10/06/21 10/06/21 01:00 01:00 02:00 03:00 Pulse 67 67 64 69 Resp 18 24 16 B/P (MAP) 88/54 (65) 96/52 (67) 111/76 (88) Pulse Ox 94 93 94 O2 Delivery Nasal Cannula Nasal Cannula Nasal Cannula O2 Flow Rate 5.00 5.00 5.00 10/06/21 10/06/21 10/06/21 10/06/21 03:05 04:00 04:26 05:00 Temp 36.5 Pulse 67 83 Resp 22 22 B/P (MAP) 92/50 (64) 96/62 (73) Pulse Ox 94 91 O2 Delivery Nasal Cannula Nasal Cannula Nasal Cannula Nasal Cannula O2 Flow Rate 5.00 5.00 3.00 5.00 FiO2 92 10/06/21 06:00 Pulse 73 Resp 19 B/P (MAP) 125/87 (100) Pulse Ox 95 O2 Delivery Nasal Cannula O2 Flow Rate 5.00 10/06/21 00:00 Intake Total 1960 ml Balance 1960 ml Weight (Pounds): 250 Weight (Calculated Kilograms): 113.385278 Side: right Groin site without hematoma: Yes Condition: DP/PT pulses palpable, extremity w/d/p Bruising: mild bruising Constitutional: AAO x 3, well-developed, well-nourished Respiratory: No accessory muscle use, No respiratory distress; chest expansion is symmetric, chest is bilaterally symmetric, rhonchi (scattered) Cardiovascular: regular rate-rhythm; No JVD; S1 and S2 Gastrointestional: No tender; soft, round, audible bowel sounds Extremities: no lower extremity edema bilateral Neurologic/Psychiatric: grossly intact (moves all extremities) Skin: No rash on exposed areas, No ulcerations on exposed areas Results/Procedures: Labs Laboratory Tests 10/06/21 03:45: White Blood Count 8.8, Red Blood Count 4.34, Hemoglobin 14.0, Hematocrit 42, Mean Corpuscular Volume 96, Mean Corpuscular Hemoglobin 32, Mean Corpuscular Hemoglobin Concent 34, Red Cell Distribution Width 11.9, Platelet Count 189, Mean Platelet Volume 12.0, Immature Granulocyte % (Auto) 0, Neutrophils (%) (Auto) 56, Lymphocytes (%) (Auto) 32, Monocytes (%) (Auto) 10, Eosinophils (%) (Auto) 2, Basophils (%) (Auto) 0, Neutrophils # (Auto) 4.9, Lymphocytes # (Auto) 2.8, Monocytes # (Auto) 0.9, Eosinophils # (Auto) 0.2, Basophils # (Auto) 0.0, Immature Granulocyte # (Auto) 0.0, Sodium Level 141, Potassium Level 4.4, Chloride Level 108H, Carbon Dioxide Level 21, Anion Gap 12, Blood Urea Nitrogen 17, Creatinine 1.00, Estimat Glomerular Filtration Rate 57, BUN/Creatinine Ratio 17, Glucose Level 121H, Calcium Level 8.7, Phosphorus Level 2.9, Magnesium Level 2.1 Microbiology 10/03/21 MRSA Screen - Final, Complete MRSA not isolated A/P: Assessment: Hypotension requiring pressor support - likely secondary to medications NICM - Cardiac cath of 10-03-21 showed no significant CAD. LVEF 20%. LVEDP 16 mmHg - Life-Vest - Coreg and Entresto started - titrate doses based on tolerance Acute decompensated systolic CHF, NYHA class 3 - clinically improving Renal insufficiency of undetermined length of time - improved following IVF Chronic tobacco use (average 2 ppd for more than 40 years) - cessation advised Abnormal ECG ECG on 09/20/21: NSR and LBBB Plan: Complex management issue Chronically somewhat low BP - received Coreg and Entresto last evening, subsequently developed hypotension requiring pressor support Wean off pressors today Intolerant to Entresto/Coreg d/t symptomatic hypotension Life Vest d/t LVEF 20% seen on cardiac cath of 10-03-21 Decompensated systolic CHF - treat with IV diuretics Monitor lab closely Renal function improved - DC IVF Replace electrolytes as indicated JAYLIN DE OLIVEIRA [facility] Oct 05, 2021 08:35
[2021-10-05] MEDS: FUROSEMIDE 40 MG/4 ML INJ (LASIX) IVP SCH (09:05)
--- NOTE | 2021-10-05 10:08 | Tele-ICU Progress Note ---
Subjective Date Seen by a Provider: Oct 05, 2021 Time Seen by a Provider: 10:08 Sepsis Event Evaluation Height, Weight, BMI Height: 5'9.00" Weight: 250lbs. oz. 113.547704oh; 35.57 BMI Method:Stated Exam Exam Patient acknowledged, consented, and participated in this virtual visit which was conducted using real time audio/video Vital Signs Date Time Temp Pulse Resp B/P (MAP) Pulse Ox O2 Delivery O2 Flow Rate FiO2 10/05/21 09:53 92 139/105 10/05/21 09:00 95 17 113/70 (84) 96 Nasal Cannula 4.00 10/05/21 08:25 36.4 10/05/21 08:00 81 17 102/69 (80) 96 Nasal Cannula 4.00 10/05/21 07:56 Nasal Cannula 5.00 91 10/05/21 07:00 92 10/05/21 07:00 88 41 109/66 (80) 98 Nasal Cannula 4.00 10/05/21 06:36 114 13 108/81 (91) 94 10/05/21 06:30 104 31 93 10/05/21 06:29 113/47 (69) 10/05/21 06:23 89 64/34 10/05/21 06:15 93 20 64/34 (48) 94 10/05/21 06:00 76 22 64/34 (44) 90 Nasal Cannula 4.00 10/05/21 05:52 74 33 60/47 (53) 92 10/05/21 05:45 72 28 75/53 (60) 93 10/05/21 05:39 81 72/49 10/05/21 05:30 71 24 72/49 (59) 91 10/05/21 05:30 Nasal Cannula 4.00 10/05/21 05:17 78 62 83/49 (58) 91 10/05/21 05:15 75 22 91 10/05/21 05:09 84 55 66/46 (52) 92 10/05/21 05:00 85 23 83/49 (60) 91 Nasal Cannula 2.00 10/05/21 04:45 77 61 89/57 (69) 89 10/05/21 04:37 76 84/36 (49) 91 10/05/21 04:34 80 70/46 (55) 87 10/05/21 04:00 64 22 92/59 (70) 93 Nasal Cannula 2.00 10/05/21 03:45 95/60 (68) 10/05/21 03:30 72 85/53 (65) 90 10/05/21 03:15 76 23 91/59 (71) 91 10/05/21 03:00 81 20 91/59 (70) 91 Nasal Cannula 2.00 10/05/21 02:45 72 28 95/61 (70) 95 10/05/21 02:30 66 24 87/61 (76) 90 10/05/21 02:21 64 82/54 10/05/21 02:00 69 17 82/54 (63) 91 Nasal Cannula 2.00 10/05/21 01:39 60 43 87/48 (61) 94 10/05/21 01:36 60 14 74/48 (54) 94 10/05/21 01:17 63 18 75/51 (58) 91 10/05/21 01:15 64 17 91 10/05/21 01:00 62 10/05/21 01:00 62 15 75/51 (59) 91 Nasal Cannula 2.00 10/05/21 00:45 69 91 10/05/21 00:30 69 33 92 10/05/21 00:15 68 18 91 10/05/21 00:00 69 18 94/70 (78) 93 Nasal Cannula 2.00 10/04/21 23:45 67 20 92 10/04/21 23:30 70 19 94 10/04/21 23:15 71 17 93 10/04/21 23:00 79 19 92/58 (69) 92 Nasal Cannula 2.00 10/04/21 22:45 78 34 92 10/04/21 22:30 84 23 93 10/04/21 22:15 80 22 95 10/04/21 22:00 79 24 108/74 (85) 94 Nasal Cannula 2.00 10/04/21 21:45 81 12 92 10/04/21 21:30 88 32 93 10/04/21 21:15 89 25 90 10/04/21 21:00 Nasal Cannula 2.00 10/04/21 21:00 85 21 106/76 (86) 92 Nasal Cannula 2.00 10/04/21 20:45 85 25 91 10/04/21 20:30 85 24 91 10/04/21 20:15 83 30 94 10/04/21 20:00 85 23 107/74 (85) 91 Nasal Cannula 2.00 10/04/21 19:48 36.4 10/04/21 19:45 87 21 89 10/04/21 19:30 82 28 88 10/04/21 19:15 89 25 92 10/04/21 19:00 85 17 110/77 (88) 91 Nasal Cannula 2.00 10/04/21 19:00 85 10/04/21 16:00 87 20 98/73 (81) 89 Nasal Cannula 2.00 10/04/21 15:58 37.3 10/04/21 12:53 76 10/04/21 12:00 81 22 102/72 (82) 93 Nasal Cannula 2.00 I & O 10/05/21 07:00 Intake Total 2870 ml Output Total 352 ml Balance 2518 ml Height & Weight Height: 5'9.00" Weight: 250lbs. oz. 113.571353vu; 35.57 BMI Method:Stated General Appearance: No Apparent Distress Results Lab Laboratory Tests 10/04/21 04:45 10/05/21 05:00 10/05/21 05:54 Assessment/Plan Assessment/Plan (Tele-ICU Physician , Progress Note ) Available chart/ vitals / labs / Images reviewed Video assessment done using teleICU camera, rest of exam as per RN Discussed with RN , EXAM PER RN Events overnight : shock , started on pressors Afebrile FiO2 - 5L Drips: dpbs, dopa , levo Consultants: cards Hospital course: (10/03) 56f s/p Cardiac Cath - no intervention. EF 20% (10/05) upgraded to ICU status with shock A/P Cardiogenic shock, Acute decompensated systolic CHF, - on dopa , levo , dobs - as per cards - meds being adjusted , on hold Coreg and Entresto - EF 20 % Acute resp in sufficiency - most likely pulm edema - diuretics to resume when Bp tolerates - as per cards NICM - Cardiac cath of 10-03-21 showed no significant CAD. LVEF 20%. LVEDP 16 mmHg - Life-Vest planned Renal insufficiency - follow Lines : PICC planned 10/05 (Central Line Necessity Reviewed) Giles: OG: Nutrition: po Analgesia: Anxiety/ delirium VTE Prophylaxis: scd Stress Ulcer Prophylaxis: po Glycemic Control: Plans in collaboration with bedside consultants and IM MDs. Discussed with RN to reach out if any questions or concerns A total of 20 minutes of critical care time was devoted to this patient today, required to treat and/or prevent further deterioration of critical care condition ( as above) . ANDREEA ALEJANDRE MD Oct 05, 2021 10:08
[2021-10-05] MEDS: ASPIRIN 81 MG CHEW (CHILDREN'S ASA) PO SCH (10:41)
[2021-10-05] MEDS: MAGNESIUM OXIDE (MAG-OX)400 MG TAB PO SCH (10:41)
[2021-10-05] MEDS: ACETAMINOPHEN 325 MG TABLET PO PRN ×2 (10:47→22:11)
--- NOTE | 2021-10-05 16:43 | Progress Note - Cardiology ---
Cardiology SOAP Progress Note Subjective: No cp or palp or syncope No shortness of breath at rest Gen malaise and weakness No n/v/d Objective: I&O/Vital Signs 10/05/21 10/05/21 10/05/21 10/05/21 04:45 05:00 05:09 05:15 Pulse 77 85 84 75 Resp 61 23 55 22 B/P (MAP) 89/57 (69) 83/49 (60) 66/46 (52) Pulse Ox 89 91 92 91 O2 Delivery Nasal Cannula O2 Flow Rate 2.00 10/05/21 10/05/21 10/05/21 10/05/21 05:17 05:30 05:30 05:39 Pulse 78 71 81 Resp 62 24 B/P (MAP) 83/49 (58) 72/49 (59) 72/49 Pulse Ox 91 91 O2 Delivery Nasal Cannula O2 Flow Rate 4.00 10/05/21 10/05/21 10/05/21 10/05/21 05:45 05:52 06:00 06:15 Pulse 72 74 76 93 Resp 28 33 22 20 B/P (MAP) 75/53 (60) 60/47 (53) 64/34 (44) 64/34 (48) Pulse Ox 93 92 90 94 O2 Delivery Nasal Cannula O2 Flow Rate 4.00 10/05/21 10/05/21 10/05/21 10/05/21 06:23 06:29 06:30 06:36 Pulse 89 104 114 Resp 31 13 B/P (MAP) 64/34 113/47 (69) 108/81 (91) Pulse Ox 93 94 10/05/21 10/05/21 10/05/21 10/05/21 07:00 07:00 07:56 08:00 Pulse 88 92 81 Resp 41 17 B/P (MAP) 109/66 (80) 102/69 (80) Pulse Ox 98 96 O2 Delivery Nasal Cannula Nasal Cannula Nasal Cannula O2 Flow Rate 4.00 5.00 4.00 FiO2 91 10/05/21 10/05/21 10/05/21 10/05/21 08:25 09:00 09:53 10:00 Temp 36.4 Pulse 95 92 105 Resp 17 14 B/P (MAP) 113/70 (84) 139/105 134/76 (95) Pulse Ox 96 91 O2 Delivery Nasal Cannula Nasal Cannula O2 Flow Rate 4.00 4.00 10/05/21 10/05/21 10/05/21 10/05/21 11:00 12:00 12:00 12:00 Temp 36.9 Pulse 84 79 Resp 22 9 B/P (MAP) 97/76 (83) 112/67 (82) Pulse Ox 96 94 O2 Delivery Nasal Cannula Nasal Cannula Nasal Cannula O2 Flow Rate 4.00 5.00 4.00 FiO2 95 10/05/21 10/05/21 10/05/21 10/05/21 12:00 13:00 13:00 14:00 Pulse 78 86 84 Resp 34 17 B/P (MAP) 105/81 (89) 115/73 (87) Pulse Ox 94 94 O2 Delivery Nasal Cannula Nasal Cannula Nasal Cannula O2 Flow Rate 4.00 4.00 4.00 10/05/21 15:51 Temp 37.3 10/05/21 00:00 Intake Total 1670 ml Output Total 2 ml Balance 1668 ml Weight (Pounds): 250 Weight (Calculated Kilograms): 113.992366 Side: right Groin site without hematoma: Yes Condition: DP/PT pulses palpable, extremity w/d/p Bruising: mild bruising Constitutional: AAO x 3, well-developed, well-nourished Respiratory: No accessory muscle use, No respiratory distress; chest expansion is symmetric, chest is bilaterally symmetric, rhonchi (scattered) Cardiovascular: regular rate-rhythm; No JVD; S1 and S2 Gastrointestional: No tender; soft, round, audible bowel sounds Extremities: no lower extremity edema bilateral Neurologic/Psychiatric: grossly intact (moves all extremities) Skin: No rash on exposed areas, No ulcerations on exposed areas Results/Procedures: Labs Laboratory Tests 10/05/21 05:00: White Blood Count 7.3, Red Blood Count 4.18, Hemoglobin 13.4, Hematocrit 40, Mean Corpuscular Volume 95, Mean Corpuscular Hemoglobin 32, Mean Corpuscular Hemoglobin Concent 34, Red Cell Distribution Width 11.8, Platelet Count 153, Me an Platelet Volume 11.3, Immature Granulocyte % (Auto) 0, Neutrophils (%) (Auto) 58, Lymphocytes (%) (Auto) 31, Monocytes (%) (Auto) 9, Eosinophils (%) (Auto) 1, Basophils (%) (Auto) 0, Neutrophils # (Auto) 4.3, Lymphocytes # (Auto) 2.3, Monocytes # (Auto) 0.6, Eosinophils # (Auto) 0.1, Basophils # (Auto) 0.0, Immature Granulocyte # (Auto) 0.0 10/05/21 05:54: Sodium Level 138, Potassium Level 3.9, Chloride Level 107, Carbon Dioxide Level 19L, Anion Gap 12, Blood Urea Nitrogen 25H, Creatinine 1.27, Estimat Glomerular Filtration Rate 43, BUN/Creatinine Ratio 20, Glucose Level 134H, Calcium Level 8.4L, Phosphorus Level 2.8, Magnesium Level 1.8 Microbiology 10/03/21 MRSA Screen - Final, Complete MRSA not isolated Laboratory Tests 10/04/21 04:45 10/05/21 05:00 10/05/21 05:54 A/P: Assessment: Shock (likely due to initiation of heart-failure meds) requiring pressor support NICM - Cardiac cath of 10-03-21 showed no significant CAD. LVEF 20%. LVEDP 16 mmHg - Life-Vest - Coreg and Entresto started - titrate doses based on tolerance Acute decompensated systolic CHF, NYHA class 3 - clinically improving Renal insufficiency of undetermined length of time - improved following IVF Chronic tobacco use (average 2 ppd for more than 40 years) - cessation advised Abnormal ECG ECG on 09/20/21: NSR and LBBB Plan: Complex management issue Chronically somewhat low BP - received Coreg and Entresto last evening, subsequently developed hypotension requiring pressor support Wean off pressors today Intolerant to Entresto/Coreg d/t symptomatic hypotension Life Vest d/t LVEF 20% seen on cardiac cath of 10-03-21 Decompensated systolic CHF - treat with IV diuretics (as tolerated) Monitor lab closely SACHIN COLEMAN MD [facility] Oct 05, 2021 16:43
[2021-10-06] VITALS (23 sets, daily range): BP systolic 60–125; BP diastolic 40–87
[2021-10-06] MEDS: DOBUTamine DRIP 250 ML IV SCH ×4 (00:35→22:45)
[2021-10-06 04:39] LABS: BASOPHILS % (AUTO) 0 % (0-10); EOSINOPHILS # (AUTO) 0.2 10^3/uL (0.0-0.3); EOSINOPHILS % (AUTO) 2 % (0-10); HEMATOCRIT 42 % (35-52); LYMPHOCYTES # (AUTO) 2.8 10^3/uL (1.0-4.0); LYMPHOCYTES % (AUTO) 32 % (12-44); MEAN CORPUSCULAR HEMOGLOBIN 32 pg (25-34); MEAN CORPUSCULAR HGB CONC 34 g/dL (32-36); MEAN CORPUSCULAR VOLUME 96 fL (80-99); MONOCYTES # (AUTO) 0.9 10^3/uL (0.0-1.0); MONOCYTES % (AUTO) 10 % (0-12); NEUTROPHILS # (AUTO) 4.9 10^3/uL (1.8-7.8); NEUTROPHILS % (AUTO) 56 % (42-75); PLATELET COUNT 189 10^3/uL (130-400); WHITE BLOOD COUNT 8.8 10^3/uL (4.3-11.0)
[2021-10-06 04:51] LABS: CALCIUM 8.7 MG/DL (8.5-10.1); MAGNESIUM 2.1 MG/DL (1.6-2.4); PHOSPHORUS 2.9 MG/DL (2.3-4.7); POTASSIUM 4.4 MMOL/L (3.6-5.0)
[2021-10-06] MEDS: POTASSIUM CL 10MEQ/50ML IVPB 50 ML IV SCH (05:24)
[2021-10-06] MEDS: KCL 20 MEQ TAB (K-DUR) PO SCH ×2 (05:24→08:09)
[2021-10-06] MEDS: MAGNESIUM 1 GM/100 ML IVPB 100 ML IV SCH (05:24)
[2021-10-06] MEDS: NOREPINEPHRINE 8 MG/250 ML 250 ML IV SCH ×2 (06:11→18:08)
[2021-10-06] MEDS: FUROSEMIDE 40 MG/4 ML INJ (LASIX) IVP SCH (08:09)
[2021-10-06] MEDS: ASPIRIN 81 MG CHEW (CHILDREN'S ASA) PO SCH (08:09)
[2021-10-06] MEDS: MAGNESIUM OXIDE (MAG-OX)400 MG TAB PO SCH (08:09)
[2021-10-06] MEDS: ACETAMINOPHEN 325 MG TABLET PO PRN ×2 (08:22→21:38)
--- NOTE | 2021-10-06 08:24 | Tele-ICU Progress Note ---
Subjective Date Seen by a Provider: Oct 06, 2021 Time Seen by a Provider: 10:12 Subjective/Events-last exam 56 yo F with cardiogenic shock pt remains off IV dobutamine, dopamine and norepinephrine, Still on daily IV Lasix, off Coreg and Entresto Cr down to 1.0, potassium 4.4, Hb with relative elevation at 14-3 PPD smoker last CXR was 09/20, would repeat Trying to get life vest, LVEF 20% Review of Systems General: No Chills, No Night Sweats, No Fatigue, No Malaise Sepsis Event Evaluation Height, Weight, BMI Height: 5'9.00" Weight: 250lbs. oz. 113.881612kb; 35.57 BMI Method:Stated Exam Exam Patient acknowledged, consented, and participated in this virtual visit which was conducted using real time audio/video Vital Signs Date Time Temp Pulse Resp B/P (MAP) Pulse Ox O2 Delivery O2 Flow Rate FiO2 10/06/21 06:00 73 19 125/87 (100) 95 Nasal Cannula 5.00 10/06/21 05:00 83 22 96/62 (73) 91 Nasal Cannula 5.00 10/06/21 04:26 Nasal Cannula 3.00 92 10/06/21 04:00 67 22 92/50 (64) 94 Nasal Cannula 5.00 10/06/21 03:05 36.5 Nasal Cannula 5.00 10/06/21 03:00 69 16 111/76 (88) 94 Nasal Cannula 5.00 10/06/21 02:00 64 24 96/52 (67) 93 Nasal Cannula 5.00 10/06/21 01:00 67 10/06/21 01:00 67 18 88/54 (65) 94 Nasal Cannula 5.00 10/06/21 00:23 Nasal Cannula 5.00 93 10/06/21 00:22 83/50 10/06/21 00:00 75 18 83/50 (61) 92 Nasal Cannula 5.00 10/05/21 23:00 78 18 95/47 (63) 94 Nasal Cannula 5.00 10/05/21 22:51 36.5 Nasal Cannula 5.00 10/05/21 22:20 90 129/82 10/05/21 22:00 85 18 129/82 (98) 92 Nasal Cannula 5.00 10/05/21 21:00 84 21 100/67 (78) 93 Nasal Cannula 5.00 10/05/21 20:00 Nasal Cannula 5.00 95 10/05/21 20:00 80 21 96/66 (76) 92 Nasal Cannula 5.00 10/05/21 19:00 36.4 Nasal Cannula 5.00 10/05/21 19:00 86 127/92 (104) 94 Nasal Cannula 10/05/21 19:00 88 10/05/21 19:00 88 25 121/89 (100) 94 Nasal Cannula 5.00 10/05/21 18:45 87 114/87 (97) 91 Nasal Cannula 10/05/21 18:30 87 134/85 (102) 92 Nasal Cannula 10/05/21 18:15 85 16 128/80 (89) 91 Nasal Cannula 10/05/21 18:00 79 115/46 (84) 92 Nasal Cannula 10/05/21 17:45 86 110/72 (86) 92 Nasal Cannula 10/05/21 17:30 86 108/71 (86) 90 Nasal Cannula 10/05/21 17:15 89 109/73 (90) 92 Nasal Cannula 10/05/21 17:00 84 31 108/74 (88) 92 10/05/21 17:00 Nasal Cannula 10/05/21 17:00 84 31 108/74 (88) 92 10/05/21 16:55 80 121/77 10/05/21 16:52 Nasal Cannula 2.00 10/05/21 16:45 96 17 121/77 (85) 90 10/05/21 16:30 86 118/75 (87) 94 Nasal Cannula 4.00 10/05/21 16:15 86 116/79 (86) 90 Nasal Cannula 4.00 10/05/21 16:00 85 38 129/78 (89) Nasal Cannula 4.00 10/05/21 16:00 Nasal Cannula 5.00 94 10/05/21 15:51 37.3 10/05/21 15:45 86 24 124/74 (84) 92 Nasal Cannula 4.00 10/05/21 15:30 79 104/85 (90) 92 Nasal Cannula 4.00 10/05/21 15:15 78 21 108/75 (83) 92 Nasal Cannula 4.00 10/05/21 15:00 80 108/84 (90) 90 Nasal Cannula 4.00 10/05/21 14:00 84 17 115/73 (87) 94 Nasal Cannula 4.00 10/05/21 13:00 86 10/05/21 13:00 78 34 105/81 (89) 94 Nasal Cannula 4.00 10/05/21 12:00 Nasal Cannula 4.00 10/05/21 12:00 79 9 112/67 (82) 94 Nasal Cannula 4.00 10/05/21 12:00 Nasal Cannula 5.00 95 10/05/21 12:00 36.9 10/05/21 11:00 84 22 97/76 (83) 96 Nasal Cannula 4.00 10/05/21 10:00 105 14 134/76 (95) 91 Nasal Cannula 4.00 10/05/21 09:53 92 139/105 10/05/21 09:00 95 17 113/70 (84) 96 Nasal Cannula 4.00 10/05/21 08:25 36.4 I & O 10/06/21 07:00 Intake Total 2450 ml Balance 2450 ml Height & Weight Height: 5'9.00" Weight: 250lbs. oz. 113.517696ac; 35.57 BMI Method:Stated General Appearance: No Apparent Distress Respiratory: Crackles, Other (crackles 1/2 way up both lungs) Cardiovascular: Regular Rate, Rhythm Gastrointestinal: normal bowel sounds, non tender, soft Extremity: Pedal Edema Neurologic/Psychiatric: Alert, Oriented x3 Results Lab Laboratory Tests 10/05/21 05:00 10/05/21 05:54 10/06/21 03:45 Assessment/Plan Assessment/Plan (10/03) 56f s/p Cardiac Cath - no intervention. EF 20% (10/05) upgraded to ICU status with shock A/P Cardiogenic shock, Improved, now off all pressors Acute decompensated systolic CHF, - - meds being adjusted , on hold Coreg and Entresto - EF 20 % Acute resp in sufficiency - most likely pulm edema - diuretics to resume when Bp tolerates - as per cards NIC - Cardiac cath of 10-03-21 showed no significant CAD. LVEF 20%. LVEDP 16 mmHg - Life-Vest planned Renal insufficiency - follow Critical Care: Critically Ill Patient Time spent with patient (mins): 25 ADDY MERINO MD Oct 06, 2021 08:24
--- NOTE | 2021-10-06 08:26 | Progress Note - Cardiology ---
Cardiology SOAP Progress Note Subjective: Sitting up in bed Feels a little more SOB this morning No c/o CP or palpitations Objective: I&O/Vital Signs Weight (Pounds): 250 Weight (Calculated Kilograms): 113.352825 Side: right Groin site without hematoma: Yes Condition: DP/PT pulses palpable, extremity w/d/p Bruising: mild bruising Constitutional: AAO x 3, well-developed, well-nourished Respiratory: No accessory muscle use, No respiratory distress; chest expansion is symmetric, chest is bilaterally symmetric, rhonchi (scattered) Cardiovascular: regular rate-rhythm; No JVD; S1 and S2 Gastrointestional: No tender; soft, round, audible bowel sounds Extremities: no lower extremity edema bilateral Neurologic/Psychiatric: grossly intact (moves all extremities) Skin: No rash on exposed areas, No ulcerations on exposed areas Results/Procedures: Labs Microbiology 10/03/21 MRSA Screen - Final, Complete MRSA not isolated A/P: Assessment: Shock (likely due to initiation of heart-failure meds) requiring pressor support - improving - remains on Levo at this time - titrating off NICM - Cardiac cath of 10-03-21 showed no significant CAD. LVEF 20%. LVEDP 16 mmHg - Life-Vest - Coreg and Entresto started - titrate doses based on tolerance Acute decompensated systolic CHF, NYHA class 3 - clinically improving Renal insufficiency of undetermined length of time - improved following IVF Chronic tobacco use (average 2 ppd for more than 40 years) - cessation advised Abnormal ECG ECG on 09/20/21: NSR and LBBB Plan: Complex management issue Chronically somewhat low BP - received Coreg and Entresto last evening, subsequently developed hypotension requiring pressor support Remains on Levo at this time - titrating off today Intolerant to Entresto/Coreg d/t symptomatic hypotension Life Vest d/t LVEF 20% seen on cardiac cath of 10-03-21 - still awaiting Life Vest placement - paperwork has been completed Decompensated systolic CHF - treat with IV diuretics (as tolerated) Monitor lab closely Increase activity today JAYLIN DE OLIVEIRA Oct 06, 2021 08:26
[2021-10-06] MEDS: ENOXAPARIN 40 MG/0.4 ML (LOVENOX) SYR SC SCH (09:28)
--- NOTE | 2021-10-06 10:55 | Diagnostic Imaging Report ---
Clinical indication: Patient with congestive heart failure. Exam: Portable chest x-ray upright view. Comparisons: Chest x-ray dated 09/20/2021. Findings: Interval placement of a left PICC line with tip in the distal superior vena cava region. Lungs/pleura: Stable appearance of the lung patricio with atelectasis and/or scarring involving the medial right lung base/cardiophrenic angle region. Otherwise, lungs are clear. There is no pneumothorax. There is no pleural effusion. Mediastinum: Unremarkable. Pulmonary vasculature: Unremarkable. Heart: Stable cardiomegaly. Bones/extrathoracic soft tissue: There are degenerative spurs involving the thoracic spine. Impression: 1: There is no interval radiographic evidence of acute cardiopulmonary process. 2: Stable cardiomegaly. There is no significant pulmonary vascular congestion. 3: Interval placement of a left PICC line with tip in the distal superior vena cava. Dictated by: Dictated on workstation # [id number]
--- NOTE | 2021-10-06 12:23 | Progress Note - Cardiology ---
Cardiology SOAP Progress Note Subjective: No cp No shortness of breath at rest Some gen malaise No palp or syncope or swelling No n/v/d Objective: I&O/Vital Signs 10/06/21 10/06/21 10/06/21 10/06/21 00:22 00:23 01:00 01:00 Pulse 67 67 Resp 18 B/P (MAP) 83/50 88/54 (65) Pulse Ox 94 O2 Delivery Nasal Cannula Nasal Cannula O2 Flow Rate 5.00 5.00 FiO2 93 10/06/21 10/06/21 10/06/21 10/06/21 02:00 03:00 03:05 04:00 Temp 36.5 Pulse 64 69 67 Resp 24 16 22 B/P (MAP) 96/52 (67) 111/76 (88) 92/50 (64) Pulse Ox 93 94 94 O2 Delivery Nasal Cannula Nasal Cannula Nasal Cannula Nasal Cannula O2 Flow Rate 5.00 5.00 5.00 5.00 10/06/21 10/06/21 10/06/21 10/06/21 04:26 05:00 06:00 07:00 Pulse 83 73 90 Resp 22 19 18 B/P (MAP) 96/62 (73) 125/87 (100) 60/48 (56) Pulse Ox 91 95 91 O2 Delivery Nasal Cannula Nasal Cannula Nasal Cannula Nasal Cannula O2 Flow Rate 3.00 5.00 5.00 5.00 FiO2 92 10/06/21 10/06/21 10/06/21 10/06/21 07:00 07:15 07:30 07:36 Pulse 84 89 Resp 16 B/P (MAP) 80/40 (53) 84/60 (67) 96/46 (61) 10/06/21 10/06/21 10/06/21 10/06/21 07:45 08:00 08:15 08:24 Pulse 92 80 Resp 43 22 B/P (MAP) 108/72 (83) 107/67 (83) 114/68 (94) Pulse Ox 94 O2 Delivery Nasal Cannula Nasal Cannula O2 Flow Rate 5.00 3.00 FiO2 92 10/06/21 10/06/21 10/06/21 10/06/21 09:00 09:30 09:40 09:45 Temp 35.8 Pulse 98 103 Resp 14 14 B/P (MAP) 88/64 (72) 89/54 (65) 87/67 (73) Pulse Ox 91 90 O2 Delivery Nasal Cannula O2 Flow Rate 5.00 10/06/21 10/06/21 10/06/21 10/06/21 10:00 10: 11:26 11:35 Temp 36.2 Pulse 96 Resp 14 B/P (MAP) 81/49 (58) Pulse Ox 89 O2 Delivery Nasal Cannula Nasal Cannula O2 Flow Rate 3.00 3.00 FiO2 92 10/06/21 00:00 Intake Total 1960 ml Balance 1960 ml Weight (Pounds): 250 Weight (Calculated Kilograms): 113.410476 Side: right Groin site without hematoma: Yes Condition: DP/PT pulses palpable, extremity w/d/p Bruising: mild bruising Constitutional: AAO x 3, well-developed, well-nourished Respiratory: No accessory muscle use, No respiratory distress; chest expansion is symmetric, chest is bilaterally symmetric, rhonchi (scattered) Cardiovascular: regular rate-rhythm; No JVD; S1 and S2 Gastrointestional: No tender; soft, round, audible bowel sounds Extremities: no lower extremity edema bilateral Neurologic/Psychiatric: grossly intact (moves all extremities) Skin: No rash on exposed areas, No ulcerations on exposed areas Results/Procedures: Labs Laboratory Tests 10/06/21 03:45: White Blood Count 8.8, Red Blood Count 4.34, Hemoglobin 14.0, Hematocrit 42, Mean Corpuscular Volume 96, Mean Corpuscular Hemoglobin 32, Mean Corpuscular Hemoglobin Concent 34, Red Cell Distribution Width 11.9, Platelet Count 189, Mean Platelet Volume 12.0, Immature Granulocyte % (Auto) 0, Neutrophils (%) (Auto) 56, Lymphocytes (%) (Auto) 32, Monocytes (%) (Auto) 10, Eosinophils (%) (Auto) 2, Basophils (%) (Auto) 0, Neutrophils # (Auto) 4.9, Lymphocytes # (Auto) 2.8, Monocytes # (Auto) 0.9, Eosinophils # (Auto) 0.2, Basophils # (Auto) 0.0, Immature Granulocyte # (Auto) 0.0, Sodium Level 141, Potassium Level 4.4, Chloride Level 108H, Carbon Dioxide Level 21, Anion Gap 12, Blood Urea Nitrogen 17, Creatinine 1.00, Estimat Glomerular Filtration Rate 57, BUN/Creatinine Ratio 17, Glucose Level 121H, Calcium Level 8.7, Phosphorus Level 2.9, Magnesium Level 2.1 Microbiology 10/03/21 MRSA Screen - Final, Complete MRSA not isolated Laboratory Tests 10/05/21 05:00 10/05/21 05:54 10/06/21 03:45 A/P: Assessment: Chronically low bp, worse after initiation of beta-yoan and Entresto, now back to baseline (80 - 100 systolic) NICM - Cardiac cath of 10-03-21 showed no significant CAD. LVEF 20%. LVEDP 16 mmHg - Life-Vest - Coreg and Entresto started - then d/c'd because of intolerance Acute decompensated systolic CHF, NYHA class 3 - clinically improving Chronic tobacco use (average 2 ppd for more than 40 years) - cessation advised Abnormal ECG ECG on 09/20/21: NSR and LBBB Plan: Complex management issue BP is low but at usual baseline and there are no other signs of shock (making good urine and renal function normal) Intolerant to Entresto/Coreg d/t symptomatic hypotension Life Vest d/t LVEF 20% seen on cardiac cath of 10-03-21 - still awaiting Life Vest placement - paperwork has been completed Continue diuretics - change to oral Monitor lab closely Increase activity today. Transfer to cardiac stepdown (5th floor) Dr Tabares covering Card service over the weekend SACHIN COLEMAN MD FACP [facility] CCDS Oct 06, 2021 12:23
--- NOTE | 2021-10-06 14:24 | Physical Therapy Progress Note ---
Therapy Progress Note RN reports patient is up independently in [facility] and does not require skilled PT. No PT indicated. IBRAHIMA GOODRICH PT Oct 06, 2021 14:24
[2021-10-07] VITALS: BP 102/74
[2021-10-07 04:00] VITALS: BP 80/52
[2021-10-07] MEDS: NOREPINEPHRINE 8 MG/250 ML 250 ML IV SCH ×2 (05:24→15:05)
[2021-10-07 05:29] LABS: BASOPHILS % (AUTO) 0 % (0-10)
[2021-10-07 05:31] LABS: EOSINOPHILS # (AUTO) 0.2 10^3/uL (0.0-0.3); EOSINOPHILS % (AUTO) 2 % (0-10); HEMATOCRIT 39 % (35-52); HEMOGLOBIN 13.2 g/dL (11.5-16.0); LYMPHOCYTES # (AUTO) 2.5 10^3/uL (1.0-4.0); LYMPHOCYTES % (AUTO) 35 % (12-44); MEAN CORPUSCULAR HEMOGLOBIN 33 pg (25-34); MEAN CORPUSCULAR HGB CONC 34 g/dL (32-36); MEAN CORPUSCULAR VOLUME 96 fL (80-99); MEAN PLATELET VOLUME 11.8 fL (9.0-12.2); MONOCYTES # (AUTO) 0.7 10^3/uL (0.0-1.0); MONOCYTES % (AUTO) 10 % (0-12); NEUTROPHILS # (AUTO) 3.9 10^3/uL (1.8-7.8); NEUTROPHILS % (AUTO) 53 % (42-75); PLATELET COUNT 134 10^3/uL (130-400); WHITE BLOOD COUNT 7.3 10^3/uL (4.3-11.0)
[2021-10-07 05:44] LABS: POTASSIUM 4.3 MMOL/L (3.6-5.0)
[2021-10-07 05:45] LABS: CALCIUM 8.5 MG/DL (8.5-10.1)
[2021-10-07 05:49] LABS: PHOSPHORUS 2.7 MG/DL (2.3-4.7)
[2021-10-07 05:50] LABS: CREATININE SERUM 0.96 MG/DL (0.60-1.30)
[2021-10-07 05:52] LABS: MAGNESIUM 2.1 MG/DL (1.6-2.4)
[2021-10-07] MEDS: KCL 20 MEQ TAB (K-DUR) PO SCH ×2 (06:00→08:49)
[2021-10-07] MEDS: POTASSIUM CL 10MEQ/50ML IVPB 50 ML IV SCH (06:00)
[2021-10-07] MEDS: MAGNESIUM 1 GM/100 ML IVPB 100 ML IV SCH (06:00)
[2021-10-07] MEDS: DOBUTamine DRIP 250 ML IV SCH ×3 (06:10→21:16)
[2021-10-07 08:00] VITALS: BP 80/62
[2021-10-07] MEDS: FUROSEMIDE 40 MG (LASIX) TAB PO SCH (08:49)
[2021-10-07] MEDS: ASPIRIN 81 MG CHEW (CHILDREN'S ASA) PO SCH (08:49)
[2021-10-07] MEDS: MAGNESIUM OXIDE (MAG-OX)400 MG TAB PO SCH (08:49)
[2021-10-07] MEDS: ENOXAPARIN 40 MG/0.4 ML (LOVENOX) SYR SC SCH (08:50)
--- NOTE | 2021-10-07 09:56 | Cardiology Progress Note ---
Progress Note-Cardiology Events since last exam Date Seen by Provider: Oct 07, 2021 Time Seen by Provider: 09:51 Events since last exam She is on our service due to recently diagnosed nonischemic cardiomyopathy and heart failure. She is requiring intermittent supplemental oxygen by nasal cannula. She states her breathing is improved but she is concerned that she might need home oxygen. She denies chest discomfort, palpitations, syncope, or ankle edema. Her blood pressures remain low. Certain portions of this document may have been dictated utilizing voice recognition technology. Inherent to this technology, typographical and grammatical errors may exist. As much as I am diligent to identify and correct these mistakes, some errors may remain in the document. Vitals Last set of Vitals Signs Vital Signs 10/06/21 10/07/21 10/07/21 10/07/21 16:44 06:32 08:00 08:13 Temp 36.5 Pulse 80 Resp 15 B/P (MAP) 80/62 (68) Pulse Ox 92 O2 Delivery Nasal Cannula O2 Flow Rate 3.00 FiO2 92 Labs Labs Laboratory Tests 10/07/21 05:15 Exam Vital Signs Vital Signs Date Time Temp Pulse Resp B/P (MAP) Pulse Ox O2 Delivery O2 Flow Rate FiO2 10/07/21 08:13 92 Nasal Cannula 3.00 10/07/21 08:00 80 15 80/62 (68) 10/07/21 06:32 92 10/06/21 16:44 36.5 Physical Exam General: Alert. No acute distress. She is obese. Eye: No xanthelasma. HENT: Normocephalic. Neck: Jugular venous pressure does not appear elevated. Respiratory: Lungs have diffusely decreased breath sounds with some mild scattered wheezes. Respirations are non-labored. Breath sounds are equal. Symmetrical chest wall expansion. Cardiovascular: Normal rate. Regular rhythm. No murmur. No gallop. No edema. Gastrointestinal: Soft. Normal bowel sounds. Skin: Warm. Dry. Neurologic: Alert and oriented to person, place, time. Cranial nerves 3-11 grossly intact. Psychiatric: Cooperative. Appropriate mood & affect. Labs Laboratory Tests Test 10/07/21 05:15 Range/Units White Blood Count 7.3 4.3-11.0 10^3/uL Red Blood Count 4.03 3.80-5.11 10^6/uL Hemoglobin 13.2 11.5-16.0 g/dL Hematocrit 39 35-52 % Mean Corpuscular Volume 96 80-99 fL Mean Corpuscular Hemoglobin 33 25-34 pg Mean Corpuscular Hemoglobin Concent 34 32-36 g/dL Red Cell Distribution Width 11.9 10.0-14.5 % Platelet Count 134 130-400 10^3/uL Mean Platelet Volume 11.8 9.0-12.2 fL Immature Granulocyte % (Auto) 0 % Neutrophils (%) (Auto) 53 42-75 % Lymphocytes (%) (Auto) 35 12-44 % Monocytes (%) (Auto) 10 0-12 % Eosinophils (%) (Auto) 2 0-10 % Basophils (%) (Auto) 0 0-10 % Neutrophils # (Auto) 3.9 1.8-7.8 10^3/uL Lymphocytes # (Auto) 2.5 1.0-4.0 10^3/uL Monocytes # (Auto) 0.7 0.0-1.0 10^3/uL Eosinophils # (Auto) 0.2 0.0-0.3 10^3/uL Basophils # (Auto) 0.0 0.0-0.1 10^3/uL Immature Granulocyte # (Auto) 0.0 0.0-0.1 10^3/uL Percent Immature Platelet Fraction 5.1 0.0-7.6 % Sodium Level 140 135-145 MMOL/L Potassium Level 4.3 3.6-5.0 MMOL/L Chloride Level 107 98-107 MMOL/L Carbon Dioxide Level 23 21-32 MMOL/L Anion Gap 10 5-14 MMOL/L Blood Urea Nitrogen 15 7-18 MG/DL Creatinine 0.96 0.60-1.30 MG/DL Estimat Glomerular Filtration Rate 60 BUN/Creatinine Ratio 16 Glucose Level 90 70-105 MG/DL Calcium Level 8.5 8.5-10.1 MG/DL Phosphorus Level 2.7 2.3-4.7 MG/DL Magnesium Level 2.1 1.6-2.4 MG/DL Diagnosis/Problems Diagnosis/Problems (1) Acute systolic heart failure Assessment & Plan: Symptomatically improved. She does still require oxygen at night and sometimes with activity and at other times during the day. Unfortunately, due to low blood pressures, we cannot treat her with any of the usual guideline directed medications. We will continue with low-dose oral diuretic. (2) Cardiomyopathy Assessment & Plan: She has newly diagnosed nonischemic cardiomyopathy. As above, she did not tolerate Entresto or carvedilol. I will obtain an echocardiogram to assess for any valvular heart disease that could be contributing to the cardiomyopathy as well as hopefully get an assessment of her right ventricular function and pulmonary artery pressure. We are awaiting a LifeVest for prevention of sudden cardiac . If possible, it would be best to discharge the patient with this device. After 3 months of guideline directed medical therapy, she will need another assessment of her ejection fraction and if this remains below 35%, she would be a candidate for prophylactic defibrillator implantation at that time. (3) Acute respiratory failure with hypoxemia Assessment & Plan: Most likely related to the acute heart failure and possibly related to some degree of pulmonary disease related to her long smoking history. I will obtain a nocturnal oximetry to see if she may need home oxygen at least temporarily. (4) Left bundle branch block Assessment & Plan: If she does need a prophylactic defibrillator, she may benefit from a biventricular device in light of the left bundle branch block. (5) Chronic hypotension Assessment & Plan: Treatment of chronic hypotension in the setting of severe c ardiomyopathy is controversial. However, her blood pressures remain low. This could cause issues with renal blood flow and/or lightheadedness or even syncope. I will try her on a low-dose of midodrine twice a day. (6) Cigarette smoker Assessment & Plan: She was previously working on quitting smoking prior to admission. (7) Obesity Assessment & Plan: She needs to work on weight loss. ANTONIO MOE JR, MD Oct 07, 2021 09:56
[2021-10-07] MEDS: MIDODRINE 10 MG (PROAMATINE) TAB PO SCH ×2 (11:18→17:41)
[2021-10-07 12:00] VITALS: BP 111/84
[2021-10-07 17:40] VITALS: BP 126/96
[2021-10-07] MEDS: ACETAMINOPHEN 325 MG TABLET PO PRN (21:45)
[2021-10-08] VITALS: BP 91/63
[2021-10-08 04:00] VITALS: BP 80/58
[2021-10-08] MEDS: DOBUTamine DRIP 250 ML IV SCH (04:25)
[2021-10-08] MEDS: NOREPINEPHRINE 8 MG/250 ML 250 ML IV SCH (05:06)
[2021-10-08 05:46] LABS: HEMATOCRIT 39 % (35-52); MEAN CORPUSCULAR VOLUME 96 fL (80-99)
[2021-10-08 05:48] LABS: BASOPHILS % (AUTO) 1 % (0-10); EOSINOPHILS # (AUTO) 0.2 10^3/uL (0.0-0.3); EOSINOPHILS % (AUTO) 3 % (0-10); HEMOGLOBIN 13.1 g/dL (11.5-16.0); LYMPHOCYTES # (AUTO) 2.7 10^3/uL (1.0-4.0); LYMPHOCYTES % (AUTO) 40 % (12-44); MEAN CORPUSCULAR HEMOGLOBIN 32 pg (25-34); MEAN CORPUSCULAR HGB CONC 34 g/dL (32-36); MEAN PLATELET VOLUME 11.4 fL (9.0-12.2); MONOCYTES # (AUTO) 0.7 10^3/uL (0.0-1.0); MONOCYTES % (AUTO) 11 % (0-12); NEUTROPHILS % (AUTO) 46 % (42-75); PLATELET COUNT 136 10^3/uL (130-400); WHITE BLOOD COUNT 6.6 10^3/uL (4.3-11.0)
[2021-10-08 05:57] LABS: POTASSIUM 4.3 MMOL/L (3.6-5.0)
[2021-10-08] MEDS: MAGNESIUM 1 GM/100 ML IVPB 100 ML IV SCH (06:00)
[2021-10-08] MEDS: POTASSIUM CL 10MEQ/50ML IVPB 50 ML IV SCH (06:00)
[2021-10-08] MEDS: KCL 20 MEQ TAB (K-DUR) PO SCH ×2 (06:00→08:09)
[2021-10-08 06:02] LABS: CREATININE SERUM 1.07 MG/DL (0.60-1.30); PHOSPHORUS 3.7 MG/DL (2.3-4.7)
[2021-10-08 06:05] LABS: MAGNESIUM 2.1 MG/DL (1.6-2.4)
[2021-10-08] MEDS: ASPIRIN 81 MG CHEW (CHILDREN'S ASA) PO SCH (08:09)
[2021-10-08] MEDS: MAGNESIUM OXIDE (MAG-OX)400 MG TAB PO SCH (08:09)
[2021-10-08] MEDS: FUROSEMIDE 40 MG (LASIX) TAB PO SCH (08:09)
[2021-10-08] MEDS: MIDODRINE 10 MG (PROAMATINE) TAB PO SCH (08:09)
[2021-10-08] MEDS: ENOXAPARIN 40 MG/0.4 ML (LOVENOX) SYR SC SCH (08:09)
[2021-10-08 08:13] VITALS: BP 92/66
[2021-10-08] MEDS ORDERED: MIDO10TA PO (09:41)
--- NOTE | 2021-10-08 09:52 | Discharge Summary ---
Diagnosis/Chief Complaint Date of Admission Oct 04, 2021 at 10:54 Date of Discharge 10/08/2021 Discharge Date: Oct 08, 2021 Discharge Time: 12:00 Admission Diagnosis Admission Diagnosis Congestive heart failure and cardiomegaly. Discharge Diagnosis 1. Cardiomyopathy, nonischemic. 2. Acute systolic heart failure. 3. Hypotension. 4. Acute respiratory failure with hypoxia. 5. Left bundle branch block. 6. Mixed hyperlipidemia. 7. Obesity. 8. Cigarette smoker. Reason Hospital Visit Outpatient cardiac catheterization Discharge Summary Hospital Course Was the Problem List Reviewed?: Yes Hospital Course The patient was admitted for an outpatient cardiac catheterization. She was not found to have any significant coronary artery disease but was found to have severe left ventricular systolic dysfunction. She was placed on therapy with metoprolol and Entresto but then developed severe hypotension that required temporary infusion of dobutamine and dopamine. This was weaned within 24-48 hours. She was not given any further guideline directed medical therapy due to low blood pressure. On the day prior to discharge, I did start her on low-dose midodrine to help increase her blood pressure since her systolic blood pressure was running in the 80 mmHg range. She was continued on diuretic which she had previously started at home. She was also found to have an elevated LDL level and a prescription for rosuvastatin was sent to her pharmacy. She was educated about heart failure as well as the importance of weight loss and cigarette smoking cessation. She was also fitted for a LifeVest due to her increased risk of sudden cardiac . Over 30 minutes was spent in direct [id number] contact with the patient in preparing this discharge summary. Labs Laboratory Tests 10/06/21 03:45: Chloride Level 108H, Glucose Level 121H 10/07/21 05:15: 10/08/21 05:35: Blood Urea Nitrogen 23H Procedures Cardiac catheterization Consultations None Discharge Physical Examination Allergies: Coded Allergies: Penicillins (Verified Allergy, Unknown, 03/02/19) Vitals & I&Os Vital Signs Date Time Temp Pulse Resp B/P (MAP) Pulse Ox O2 Delivery O2 Flow Rate FiO2 10/08/21 08:43 Nasal Cannula 3.00 92 10/08/21 08:13 69 18 92/66 (75) 92 10/08/21 08:00 36.0 General: Alert. No acute distress. She is obese. Eye: No xanthelasma. HENT: Normocephalic. Neck: Jugular venous pressure does not appear elevated. Respiratory: Lungs have diffusely decreased breath sounds with some scattered wheezes. Respirations are non-labored. Breath sounds are equal. Symmetrical chest wall expansion. Cardiovascular: Normal rate. Regular rhythm. No murmur. No gallop. No edema. Gastrointestinal: Soft. Normal bowel sounds. Skin: Warm. Dry. Neurologic: Alert and oriented to person, place, time. Cranial nerves 3-11 grossly intact. Psychiatric: Cooperative. Appropriate mood & affect. Discharge Home Medications Reviewed and agree with Discharge Medication list on patient's Discharge Instruction sheet Condition at Discharge Improved. Instructions to Patient/Family Please see electronic discharge instructions given to patient. ANTONIO MOE JR, MD Oct 08, 2021 09:52
[2021-10-08] MEDS ORDERED: ROSU20TA32 PO (09:53)
[2021-10-08] MEDS ORDERED: ROSUVASTATIN 20 MG (CRESTOR) TABLET PO SCH (21:00)
== END 2021-10-08 13:30 | disposition home or self-care (01) | DRG 286 ==
LOC: CATH 08:00 → ICU 09:32 → CATH 10:53 → ICU 10:54 → CATH 10-04 10:53 → ICU 10-04 10:53 → UNDOADMIN 10-04 10:54 → ICU 10-04 10:54 → UNDODISIN 10-08 13:30
PROVIDERS: ADMIT Internal Medicine Cardiovascular Disease; ATTEND Internal Medicine Cardiovascular Disease
PROC: 4A023N7 Measurement of Cardiac Sampling and Pressure, Left Heart, Percutaneous Approach (ICD-10-PCS; principal; 2021-10-03)
PROC: B2111ZZ Fluoroscopy of Multiple Coronary Arteries using Low Osmolar Contrast (ICD-10-PCS; 2021-10-03)
PROC: B2151ZZ Fluoroscopy of Left Heart using Low Osmolar Contrast (ICD-10-PCS; 2021-10-03)
DX: I42.8 Other cardiomyopathies (principal); I50.21 Acute systolic (congestive) heart failure; R57.0 Cardiogenic shock; J96.01 Acute respiratory failure with hypoxia; F17.210 Nicotine dependence, cigarettes, uncomplicated; Z79.82 Long term (current) use of aspirin; Z79.899 Other long term (current) drug therapy; N28.9 Disorder of kidney and ureter, unspecified; I44.7 Left bundle-branch block, unspecified; I95.9 Hypotension, unspecified; E66.9 Obesity, unspecified; E78.2 Mixed hyperlipidemia; Z68.35 Body mass index [BMI] 35.0-35.9, adult
CPT/HCPCS: 36415; 36569; 71045; 76937; 80048; 80053; 80061; 83735; 84100; 85025; 85027; 85610; 85730; 87081; 93005; 93306; 93458

== ENCOUNTER 2021-10-11 19:12 | Inpatient (IN) | payer OTHER ==
[~2021-10-11] VITALS: Ht 175 cm; Wt 106.7 kg
[~2021-10-11 19:12] MED LIST changes: -HEParin (CATH LAB) 2,000 ML IV ONE; -LIDOCAINE 1% INJ 20 ML 20 ML VIAL ONE; +MIDO10TA PO; -NS IV 1000 ML 1,000 ML ONE; +ROSU20TA32 PO
--- NOTE | 2021-10-11 20:04 | ED Cardiac General ---
History of Present Illness General Stated Complaint: HIGH HEART RATE, HIGH BLOOD PRESSURE Source: patient (LIMITED HISTORIAN), old records, other (FEMALE FAMILY MEMBER GIVES MOST INFORMATION) History of Present Illness Date Seen by Provider: Oct 11, 2021 Time Seen by Provider: 19:49 Initial Comments PT ARRIVES VIA POV FROM HOME STATES SHE HASN'T FELT WELL SINCE SHE WOKE UP THIS MORNING STATES SHE HAD O2 SAT 76% WHEN SHE WOKE UP THIS AM--HAS COPD BUT DOES NOT HAVE /NEED HOME O2. STATES NORMAL O2 SAT 90-92% ON ROOM AIR STATES SHE HAS HAD ELEVATED HEART RATE IN 110'S AND BP ELEVATED TO 140/86. STATES "NORMALLY IT IS LOW" BEGAN HAVING MID STERNAL CHEST PAIN RADIATING THROUGH TO BACK ON THE WAY HERE NO SWELLING IN LEGS/FEET OR PAIN IN CALVES NO COUGH C/O SHORTNESS OF BREATH AND ORTHOPNEA NO FEVER/SWEATS/CHILLS PT SEEN AT [facility] 09/20/21 AND DX WITH NEW ONSET CHF. PT HAD CARDIAC CATH 10/03/21--NO INTERVENTION, WAS FOUND TO HAVE NON-ISCHEMIC CARDIOMYOPATHY WITH EF OF 20%, AND ADMITTED UNTIL 10/08/21 PT WAS PLACED ON A LIFE VEST AT THAT TIME. PT HAS BEEN STARTED ON SEVERAL MEDICATIONS SINCE THAT ADMIT. PT DOES NOT KNOW ANY OF HER MEDICATIONS PT HAS NOT HAD COVID-19 VACCINE PT WAS SMOKING 3 PPD, PRIOR TO ADMIT LAST WEEK. PCP: [facility]--HAS BEEN THERE ONE TIME BARK TANNER: DR. COLEMAN PT HAS NOT HAD ANY DOCTOR PRIOR TO THIS MONTH PT STATES SHE LIVES "30 [address] ON THE OTHER SIDE OF [place]" BUT IS CURRENTLY STAYING WITH FAMILY HERE SINCE DISMISSED FROM HOSPITAL ON 10/08/21 Allergies and Home Medications Allergies Coded Allergies: Penicillins (Verified Allergy, Unknown, 03/02/19) Patient Home Medication List Aspirin (Aspirin) 81 Mg Tab.chew, 81 MG PO DAILY, (Reported) Entered as Reported by: YAN WEBER on 10/03/21 07 Furosemide (Furosemide) 40 Mg Tablet, 40 MG PO DAILY, (Reported) Entered as Reported by: YAN WEBER on 10/03/21 0738 Magnesium Oxide (Magnesium Oxide) 400 Mg Tablet, 400 MG PO DAILY, (Reported) Entered as Reported by: YAN WEBER on 10/03/21 07 Midodrine HCl (Midodrine HCl) 10 Mg Tablet, 2.5 MG PO BID WITH MEALS Prescribed by: ANTONIO MOE JR, MD on 10/08/21 0941 Potassium Chloride (Potassium Chloride) 10 Meq Tab.er.prt, 10 MEQ PO DAILY, (Reported) Entered as Reported by: YAN WEBER on 10/03/21 0738 Rosuvastatin Calcium (Rosuvastatin Calcium) 20 Mg Tablet, 20 MG PO HS Prescribed by: ANTONIO MOE JR, MD on 10/08/21 0953 Discontinued Medications Metoprolol Tartrate (Metoprolol Tartrate) 25 Mg Tablet, 25 MG PO BID, (Reported) Entered as Reported by: YAN WEBER on 10/03/21 0738 Review of Systems Review of Systems Constitutional: No chills, No diaphoresis, No fever Respiratory: See HPI; Denies Cough; Orthopnea, Shortness of Air Cardiovascular: See HPI, Chest Pain; Denies Edema; Irregular Heart Rate, Lightheadedness, Palpitations; Denies Syncope Gastrointestinal: No Symptoms Reported; Denies Abdominal Pain, Denies Nausea, Denies Vomiting Genitourinary: No Symptoms Reported Musculoskeletal: no symptoms reported Skin: no symptoms reported Psychiatric/Neurological: Anxiety Endocrine: No Symptoms Reported Hematologic/Lymphatic: No Symptoms Reported Past Ryvewgi-Nsvsfa-Fwxzpq Hx Patient Social History Tobacco Use?: Yes Tobacco type used: Cigarettes Substance use?: Yes Substance type: Marijuana Additional substance use comme: THC Alcohol Use?: No Immunizations Up To Date First/Initial COVID19 Vaccinat: Not currently vaccinated Second COVID19 Vaccination Edi: Not currently vaccinated Third COVID19 Vaccination Date: Not currently vaccinated Seasonal Allergies Seasonal Allergies: No Past Medical History Surgery/Hospitalization HX: COPD Surgeries: Yes Cardiac, Gallbladder, Hysterectomy, Tonsillectomy Respiratory: Yes COPD Currently Using CPAP: No Currently Using BIPAP: No Cardiac: Yes (LIFE VEST 10/08/21; LBBB; NON-ISCHEMIC CARDIOMYOPATHY EF 20%) Cardiomyopathy, High Cholesterol Neurological: No Genitourinary: No Gastrointestinal: No Musculoskeletal: No Endocrine: No HEENT: No Cancer: No Psychosocial: No Integumentary: No Blood Disorders: No Family Medical History SOCIAL HISTORY: -SMOKES 3 PPD X 44 YEARS, CLAIMS NONE SINCE 10/03/21 -DENIES ETOH USE -DENIES DRUG USE CARDIAC CATH 10/03/[address] 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 No angiographically significant coronary artery disease. 2. Dilated cardiomyopathy, nonischemic, with global hypokinesis of left ventricle and left ventricular ejection fraction of 20%. 3. Left ventricular end-diastolic pressure is 16 mmHg. DISCUSSION AND RECOMMENDATIONS: She is being hospitalized for optimization of her regimen for cardiomyopathy and acute systolic congestive heart failure. She will be treated with beta blockers and Entresto. Diuretics will be used as needed and as tolerated. She may need a LifeVest for now. Physical Exam Vital Signs Vital Signs - First Documented 10/11/21 19:37 Temp 36.8 Pulse 123 Resp 18 B/P (MAP) 129/94 (106) Pulse Ox 90 O2 Delivery Nasal Cannula Capillary Refill : Height, Weight, BMI Height: 5'9.00" Weight: 250lbs. oz. 113.263885br; 35.57 BMI Method:Stated General Appearance: Anxious, Obese, Other (MILDLY DYSPNEIC BUT TALKS NON-STOP IN FULL SENTENCES AT GREAT LENGTH. ) Neck: Normal Inspection; No JVD Respiratory: No Rales, No Rhonci, No Wheezing; Other (MILDLY DYSPNEIC) Cardiovascular: No Edema, No JVD, No Murmur, Normal Peripheral Pulses, Tachycardia Gastrointestinal: Non Tender, Soft Extremity: Normal Capillary Refill, Normal Inspection, Normal Range of Motion, Non Tender, No Calf Tenderness, No Pedal Edema Neurologic/Psychiatric: Alert, Oriented x3, No Motor/Sensory Deficits, director of web marketing II- XII Norm as Tested, Other (ANXIOUS) Skin: Normal Color, Warm/Dry Progress/Results/Core Measures Results/Orders Lab Results Laboratory Tests Test 10/11/21 20:31 10/11/21 20:32 10/11/21 21:32 Range/Units Influenza Type A (RT-PCR) Not Detected Not Detecte Influenza Type B (RT-PCR) Not Detected Not Detecte SARS-CoV-2 RNA (RT-PCR) Not Detected Not Detecte White Blood Count 13.6 H 4.3-11.0 10^3/uL Red Blood Count 4.36 3.80-5.11 10^6/uL Hemoglobin 13.9 11.5-16.0 g/dL Hematocrit 41 35-52 % Mean Corpuscular Volume 95 80-99 fL Mean Corpuscular Hemoglobin 32 25-34 pg Mean Corpuscular Hemoglobin Concent 34 32-36 g/dL Red Cell Distribution Width 11.6 10.0-14.5 % Platelet Count 207 130-400 10^3/uL Mean Platelet Volume 11.0 9.0-12.2 fL Immature Granulocyte % (Auto) 0 % Neutrophils (%) (Auto) 81 H 42-75 % Lymphocytes (%) (Auto) 13 12-44 % Monocytes (%) (Auto) 6 0-12 % Eosinophils (%) (Auto) 0 0-10 % Basophils (%) (Auto) 0 0-10 % Neutrophils # (Auto) 11.0 H 1.8-7.8 10^3/uL Lymphocytes # (Auto) 1.7 1.0-4.0 10^3/uL Monocytes # (Auto) 0.8 0.0-1.0 10^3/uL Eosinophils # (Auto) 0.0 0.0-0.3 10^3/uL Basophils # (Auto) 0.0 0.0-0.1 10^3/uL Immature Granulocyte # (Auto) 0.0 0.0-0.1 10^3/uL Prothrombin Time 13.0 12.2-14.7 SEC INR Comment 0.9 0.8-1.4 Activated Partial Thromboplast Time 28 24-35 SEC D-Dimer 0.74 H 0.00-0.49 UG/ML Sodium Level 139 135-145 MMOL/L Potassium Level 3.9 3.6-5.0 MMOL/L Chloride Level 104 98-107 MMOL/L Carbon Dioxide Level 20 L 21-32 MMOL/L Anion Gap 15 H 5-14 MMOL/L Blood Urea Nitrogen 28 H 7-18 MG/DL Creatinine 1.25 0.60-1.30 MG/DL Estimat Glomerular Filtration Rate 44 BUN/Creatinine Ratio 22 Glucose Level 122 H 70-105 MG/DL Calcium Level 9.5 8.5-10.1 MG/DL Corrected Calcium 9.3 8.5-10.1 MG/DL Magnesium Level 1.7 1.6-2.4 MG/DL Total Bilirubin 0.4 0.1-1.0 MG/DL Aspartate Amino Transf (AST/SGOT) 30 5-34 U/L Alanine Aminotransferase (ALT/SGPT) 20 0-55 U/L Alkaline Phosphatase 54 40-136 U/L B-Type Natriuretic Peptide 291.3 H <100.0 PG/ML Total Protein 7.4 6.4-8.2 GM/DL Albumin 4.3 3.2-4.5 GM/DL Urine Opiates Screen NEGATIVE NEGATIVE Urine Oxycodone Screen NEGATIVE NEGATIVE Urine Methadone Screen NEGATIVE NEGATIVE Urine Propoxyphene Screen NEGATIVE NEGATIVE Urine Barbiturates Screen NEGATIVE NEGATIVE Ur Tricyclic Antidepressants Screen NEGATIVE NEGATIVE Urine Phencyclidine Screen NEGATIVE NEGATIVE Urine Amphetamines Screen NEGATIVE NEGATIVE Urine Methamphetamines Screen NEGATIVE NEGATIVE Urine Benzodiazepines Screen NEGATIVE NEGATIVE Urine Cocaine Screen NEGATIVE NEGATIVE Urine Cannabinoids Screen POSITIVE H NEGATIVE My Orders Orders - CHEVY BRASWELL DO Ed Iv/Invasive Line Start (10/11/21 19:51) Ekg Tracing (10/11/21 19:51) Monitor-Rhythm Ecg Trace Only (10/11/21 19:51) BNP (10/11/21 19:51) Cbc With Automated Diff (10/11/21 19:51) Comprehensive Metabolic Panel (10/11/21 19:51) Drug Screen Stat (Urine) (10/11/21 19:51) Magnesium (10/11/21 19:51) Protime With Inr (10/11/21 19:51) Partial Thromboplastin Time (10/11/21 19:51) Thyroid Analyzer (10/11/21 19:51) Troponin I (10/11/21 19:51) Chest 1 View, Ap/Pa Only (10/11/21 19:51) Fibrin Degradation Products (10/11/21 20:08) Influenza A And B By Pcr (10/11/21 20:08) Covid 19 Inhouse Test (10/11/21 20:08) Furosemide Injection (Lasix Injection) (10/11/21 21:30) Metoprolol Tartrate Injection (Lopressor (10/11/21 21:30) Metoprolol Succinate (Xl) Tab (Toprol Xl (10/11/21 21:30) Acetaminophen Tablet (Tylenol Tablet) (10/11/21 21:45) Medications Given in ED Current Medications Medications Dose Ordered Sig/Jackson Route Start Time Stop Time Status Last Admin Dose Admin Acetaminophen 1,000 mg ONCE ONCE PO 10/11/21 21:45 10/11/21 21:47 DC 10/11/21 21:51 1,000 MG Furosemide 40 mg ONCE ONCE IVP 10/11/21 21:30 10/11/21 21:31 DC 10/11/21 21:43 40 MG Vital Signs/I&O 10/11/21 19:37 Temp 36.8 Pulse 123 Resp 18 B/P (MAP) 129/94 (106) Pulse Ox 90 O2 Delivery Nasal Cannula Initial ECG Impression Date: Oct 11, 2021 Initial ECG Impression Time: 20:01 Initial ECG Rate: 111 Initial ECG Rhythm: S.Tach (LBBB) Initial ECG Comparisson: Unchanged (EXCEPT FOR RATE) Diagnostic Imaging Comments CXR--PER RADIOLOGIST REPORT AT 2049 FINDINGS: There is mild cardiomegaly which is stable. There is haziness of the lung bases, thought to be due to overlying soft tissue. Linear opacity at the right lung base is likely atelectasis or scarring. No acute pulmonary abnormality is evident. There is no pleural effusion or pneumothorax. IMPRESSION: 1. No acute pulmonary abnormality is seen. 2. Right basilar atelectasis/scarring. 3. Mild cardiomegaly. Reviewed: Reviewed by Ri Departure Departure-Patient Inst. Referrals: [facility] (PCP/Family) Primary Care Physician CHEVY BRASWELL DO Oct 11, 2021 20:04
[2021-10-11 20:41] LABS: BASOPHILS % (AUTO) 0 % (0-10); EOSINOPHILS % (AUTO) 0 % (0-10); HEMATOCRIT 41 % (35-52); HEMOGLOBIN 13.9 g/dL (11.5-16.0); LYMPHOCYTES # (AUTO) 1.7 10^3/uL (1.0-4.0); LYMPHOCYTES % (AUTO) 13 % (12-44); MEAN CORPUSCULAR HEMOGLOBIN 32 pg (25-34); MEAN CORPUSCULAR HGB CONC 34 g/dL (32-36); MEAN CORPUSCULAR VOLUME 95 fL (80-99); MONOCYTES # (AUTO) 0.8 10^3/uL (0.0-1.0); MONOCYTES % (AUTO) 6 % (0-12); NEUTROPHILS % (AUTO) 81 % (42-75); PLATELET COUNT 207 10^3/uL (130-400); WHITE BLOOD COUNT 13.6 10^3/uL (4.3-11.0)
--- NOTE | 2021-10-11 20:41 | Diagnostic Imaging Report ---
HISTORY: Shortness of air, chest pain. COMPARISON: 10/06/2021. TECHNIQUE: Frontal view of the chest. FINDINGS: There is mild cardiomegaly which is stable. There is haziness of the lung bases, thought to be due to overlying soft tissue. Linear opacity at the right lung base is likely atelectasis or scarring. No acute pulmonary abnormality is evident. There is no pleural effusion or pneumothorax. IMPRESSION: 1. No acute pulmonary abnormality is seen. 2. Right basilar atelectasis/scarring. 3. Mild cardiomegaly. Dictated by: Dictated on workstation # [id number]
[2021-10-11 20:54] LABS: ALBUMIN 4.3 GM/DL (3.2-4.5)
[2021-10-11 20:55] LABS: CHLORIDE 104 MMOL/L (98-107); POTASSIUM 3.9 MMOL/L (3.6-5.0); SODIUM 139 MMOL/L (135-145)
[2021-10-11 20:56] LABS: CALCIUM 9.5 MG/DL (8.5-10.1)
[2021-10-11 20:57] LABS: GLUCOSE 122 MG/DL (70-105); TOTAL PROTEIN 7.4 GM/DL (6.4-8.2)
[2021-10-11 20:58] LABS: CARBON DIOXIDE 20 MMOL/L (21-32)
[2021-10-11 20:59] LABS: BILIRUBIN,TOTAL 0.4 MG/DL (0.1-1.0)
[2021-10-11 21:00] LABS: ALKALINE PHOSPHATASE 54 U/L (40-136)
[2021-10-11 21:01] LABS: CREATININE SERUM 1.25 MG/DL (0.60-1.30); GFR ESTIMATED 44
[2021-10-11 21:02] LABS: BUN/CREATININE RATIO 22
[2021-10-11 21:04] LABS: ALANINE AMINOTRANSFERASE 20 U/L (0-55); MAGNESIUM 1.7 MG/DL (1.6-2.4)
[2021-10-11 21:23] LABS: FIBRIN DEGRADATION PRODUCTS 0.74 UG/ML (0.00-0.49); INR 0.9 (0.8-1.4)
[2021-10-11] MEDS ORDERED: FUROSEMIDE 40 MG/4 ML INJ (LASIX) IVP ONE (21:30)
[2021-10-11] MEDS ORDERED: meTOprolol 5 MG/5 ML (LOPRESSOR) VIAL IV ONE (21:30)
[2021-10-11] MEDS ORDERED: meTOproloL SUCCINATE 50 MG (TOPROL XL) TAB PO SCH (21:30)
[2021-10-11] MEDS ORDERED: ACETAMINOPHEN 500 MG TAB (TYLENOL) PO ONE (21:45)
[2021-10-11 21:51] LABS: AMPHETAMINE SCREEN, URINE NEGATIVE (NEGATIVE); BARBITURATE SCREEN URINE NEGATIVE (NEGATIVE); BENZODIAZEPINES SCREEN URINE NEGATIVE (NEGATIVE); CANNABINOID SCREEN, URINE POSITIVE (NEGATIVE); COCAINE SCREEN URINE NEGATIVE (NEGATIVE); METHADONE STAT NEGATIVE (NEGATIVE); METHAMPHETAMINE SCREEN URINE S NEGATIVE (NEGATIVE); OPIATE SCREEN URINE NEGATIVE (NEGATIVE); OXYCODONE STAT NEGATIVE (NEGATIVE); PROPOXYPHENE STAT NEGATIVE (NEGATIVE); TRICYCLIC ANTIDEPRESSANTS SCRE NEGATIVE (NEGATIVE)
[2021-10-11] MEDS ORDERED: LORazepam INJ 2 MG/ML (ATIVAN) VIAL IVP ONE (22:15)
[2021-10-11] MEDS ORDERED: ENOXAPARIN 100 MG/1 ML (LOVENOX) SYR SC ONE (22:15)
[2021-10-11] MEDS ORDERED: methylPREDNISolone 125 MG (Solu-MEDROL) VIAL IVP ONE (22:15)
[2021-10-11 23:15] VITALS: BP 125/85
[2021-10-11] MEDS ORDERED: NITROGLYCERIN 0.4 MG SL TABS BTL 25'S SL PRN (23:30)
[2021-10-11] MEDS ORDERED: CATHETER FLUSH 10 ML SYR IV PRN (23:30)
[2021-10-11] MEDS ORDERED: ONDANSETRON 4 MG/2 ML (SDV) Z0FRAN IV PRN (23:30)
[2021-10-11] MEDS ORDERED: morphine INJ 4 MG/ML 1 ML (VIAL/SYRINGE) IV PRN (23:30)
[2021-10-11] MEDS ORDERED: LORazepam INJ 2 MG/ML (ATIVAN) VIAL IV PRN (23:30)
[2021-10-12] VITALS: BP 103/55
[2021-10-12 00:25] VITALS: BP 129/84
[2021-10-12] MEDS ORDERED: RT-ALBUTEROL/IPRATROPIUM 3 ML (DUONEB) VIAL INH PRN (00:45)
[2021-10-12] MEDS: RT-ALBUTEROL/IPRATROPIUM 3 ML (DUONEB) VIAL INH SCH ×4 (03:21→22:04)
[2021-10-12 04:00] VITALS: BP 86/55
[2021-10-12] MEDS: CATHETER FLUSH 10 ML SYR IV SCH ×3 (05:36→20:34)
[2021-10-12 05:40] LABS: BASOPHILS % (AUTO) 0 % (0-10); EOSINOPHILS % (AUTO) 0 % (0-10); HEMATOCRIT 38 % (35-52); HEMOGLOBIN 13.2 g/dL (11.5-16.0); LYMPHOCYTES # (AUTO) 0.6 10^3/uL (1.0-4.0); LYMPHOCYTES % (AUTO) 6 % (12-44); MEAN CORPUSCULAR HEMOGLOBIN 32 pg (25-34); MEAN CORPUSCULAR HGB CONC 34 g/dL (32-36); MEAN CORPUSCULAR VOLUME 94 fL (80-99); MEAN PLATELET VOLUME 11.2 fL (9.0-12.2); MONOCYTES # (AUTO) 0.1 10^3/uL (0.0-1.0); MONOCYTES % (AUTO) 1 % (0-12); NEUTROPHILS # (AUTO) 8.4 10^3/uL (1.8-7.8); NEUTROPHILS % (AUTO) 93 % (42-75); PLATELET COUNT 196 10^3/uL (130-400)
[2021-10-12 05:46] LABS: POTASSIUM 3.9 MMOL/L (3.6-5.0)
[2021-10-12 05:47] LABS: CALCIUM 9.5 MG/DL (8.5-10.1)
[2021-10-12 05:51] LABS: CREATININE SERUM 1.46 MG/DL (0.60-1.30)
[2021-10-12] MEDS ORDERED: methylPREDNISolone 125 MG (Solu-MEDROL) VIAL IV ONE (06:00)
[2021-10-12] MEDS ORDERED: FUROSEMIDE 40 MG/4 ML INJ (LASIX) IV ONE (06:00)
[2021-10-12 06:15] LABS: LYMPHOCYTES % (MANUAL) 9 %; MONOCYTES % (MANUAL) 1 %; NEUTROPHILS % (MANUAL) 90 %
[2021-10-12 06:16] LABS: RBC MORPH NORMAL
[2021-10-12] MEDS ORDERED: MIDO2.5T PO (06:35)
[2021-10-12 07:37] VITALS: BP 109/70
[2021-10-12] MEDS: ASPIRIN E.C. 81 MG (ECOTRIN) TAB PO SCH (08:26)
[2021-10-12] MEDS: ENOXAPARIN 100 MG/1 ML (LOVENOX) SYR SC SCH ×2 (08:26→20:33)
[2021-10-12] MEDS ORDERED: PATIENT MAY USE OWN MED,SINGLE MED PO SCH (08:45)
--- NOTE | 2021-10-12 08:53 | Consultation-Cardiology ---
HPI-Cardiology Cardiology Consultation Date of Consultation 10/12/21 Date of Admission Time Seen by Provider: 08:48 Indication: Shortness of breath HPI 56-year-old lady with a history of nonischemic cardiomyopathy, ejection fraction 15 to 20%. Was discharged home recently. Reported that she noted that her oxygen level has been dropping. She denied any chest pain, still having some shortness of breath laying down in bed. Denied any syncope, no chest pain was reported. Home Medications & Allergies Allergies: Coded Allergies: Penicillins (Verified Allergy, Unknown, 03/02/19) Home Medication List Reviewed: Yes [id number] Hx Patient Social History Employed/Student: unemployed Smoking Status: Current Everyday Smoker Type Used: Cigarettes 2nd Hand Smoke Exposure: Yes Recent Hopitalizations: No Have you traveled recently?: No Alcohol Use?: No Substance type: Nicotine, Marijuana Past Medical History Discussed below Family Medical History Family Medical Hx Noncontributory to her current condition Review of Systems-General Review of Systems Constitutional: No chills, No diaphoresis, No fever; malaise, weakness EENTM: see HPI, no symptoms reported Respiratory: see HPI; No cough, No dyspnea on exertion, No hemoptysis, No orthopnea, No phlegm; short of breath; No stridor, No wheezing, No other Cardiovascular: no symptoms reported, see HPI; No chest pain, No edema, No Hx of Intervention, No palpitations, No syncope, No vascular heart diseas, No other Gastrointestinal: no symptoms reported, see HPI Genitourinary: no symptoms reported, see HPI Musculoskeletal: no symptoms reported, see HPI Skin: no symptoms reported, see HPI Psychiatric/Neurological: See HPI, Anxiety Reviewed Test Results Reviewed Test Results Lab Laboratory Tests Test 10/11/21 20:31 10/11/21 20:32 10/11/21 21:32 10/12/21 05:29 Range/Units Influenza Type A (RT-PCR) Not Detected Not Detecte Influenza Type B (RT-PCR) Not Detected Not Detecte SARS-CoV-2 RNA (RT-PCR) Not Detected Not Detecte White Blood Count 13.6 H 9.0 4.3-11.0 10^3/uL Red Blood Count 4.36 4.09 3.80-5.11 10^6/uL Hemoglobin 13.9 13.2 11.5-16.0 g/dL Hematocrit 41 38 35-52 % Mean Corpuscular Volume 95 94 80-99 fL Mean Corpuscular Hemoglobin 32 32 25-34 pg Mean Corpuscular Hemoglobin Concent 34 34 32-36 g/dL Red Cell Distribution Width 11.6 11.6 10.0-14.5 % Platelet Count 207 196 130-400 10^3/uL Mean Platelet Volume 11.0 11.2 9.0-12.2 fL Immature Granulocyte % (Auto) 0 0 % Neutrophils (%) (Auto) 81 H 93 H 42-75 % Lymphocytes (%) (Auto) 13 6 L 12-44 % Monocytes (%) (Auto) 6 1 0-12 % Eosinophils (%) (Auto) 0 0 0-10 % Basophils (%) (Auto) 0 0 0-10 % Neutrophils # (Auto) 11.0 H 8.4 H 1.8-7.8 10^3/uL Lymphocytes # (Auto) 1.7 0.6 L 1.0-4.0 10^3/uL Monocytes # (Auto) 0.8 0.1 0.0-1.0 10^3/uL Eosinophils # (Auto) 0.0 0.0 0.0-0.3 10^3/uL Basophils # (Auto) 0.0 0.0 0.0-0.1 10^3/uL Immature Granulocyte # (Auto) 0.0 0.0 0.0-0.1 10^3/uL Prothrombin Time 13.0 12.2-14.7 SEC INR Comment 0.9 0.8-1.4 Activated Partial Thromboplast Time 28 24-35 SEC D-Dimer 0.74 H 0.00-0.49 UG/ML Sodium Level 139 140 135-145 MMOL/L Potassium Level 3.9 3.9 3.6-5.0 MMOL/L Chloride Level 104 103 98-107 MMOL/L Carbon Dioxide Level 20 L 24 21-32 MMOL/L Anion Gap 15 H 13 5-14 MMOL/L Blood Urea Nitrogen 28 H 32 H 7-18 MG/DL Creatinine 1.25 1.46 H 0.60-1.30 MG/DL Estimat Glomerular Filtration Rate 44 37 BUN/Creatinine Ratio 22 22 Glucose Level 122 H 202 H 70-105 MG/DL Calcium Level 9.5 9.5 8.5-10.1 MG/DL Corrected Calcium 9.3 8.5-10.1 MG/DL Magnesium Level 1.7 1.9 1.6-2.4 MG/DL Total Bilirubin 0.4 0.1-1.0 MG/DL Aspartate Amino Transf (AST/SGOT) 30 5-34 U/L Alanine Aminotransferase (ALT/SGPT) 20 0-55 U/L Alkaline Phosphatase 54 40-136 U/L Troponin I < 0.028 <0.028 NG/ML B-Type Natriuretic Peptide 291.3 H 646.7 H <100.0 PG/ML Total Protein 7.4 6.4-8.2 GM/DL Albumin 4.3 3.2-4.5 GM/DL TSH [place] Testing 2.50 0.35-4.94 UIU/ML Urine Opiates Screen NEGATIVE NEGATIVE Urine Oxycodone Screen NEGATIVE NEGATIVE Urine Methadone Screen NEGATIVE NEGATIVE Urine Propoxyphene Screen NEGATIVE NEGATIVE Urine Barbiturates Screen NEGATIVE NEGATIVE Ur Tricyclic Antidepressants Screen NEGATIVE NEGATIVE Urine Phencyclidine Screen NEGATIVE NEGATIVE Urine Amphetamines Screen NEGATIVE NEGATIVE Urine Methamphetamines Screen NEGATIVE NEGATIVE Urine Benzodiazepines Screen NEGATIVE NEGATIVE Urine Cocaine Screen NEGATIVE NEGATIVE Urine Cannabinoids Screen POSITIVE H NEGATIVE Neutrophils % (Manual) 90 % Lymphocytes % (Manual) 9 % Monocytes % (Manual) 1 % Blood Morphology Comment NORMAL Triglycerides Level 71 <150 MG/DL Cholesterol Level 150 < 200 MG/DL LDL Cholesterol Direct 105 1-129 MG/DL VLDL Cholesterol 14 5-40 MG/DL HDL Cholesterol 39 L 40-60 MG/DL Physical Exam Physical Exam Vital Signs Vital Signs - First Documented 10/11/21 10/11/21 10/12/21 19:37 23:03 00:25 Temp 36.8 Pulse 123 Resp 18 B/P (MAP) 129/94 (106) Pulse Ox 90 O2 Delivery Nasal Cannula O2 Flow Rate 4.00 FiO2 32 Capillary Refill : Less Than 3 Seconds Height, Weight, BMI Height: 5'9.00" Weight: 250lbs. oz. [id number]; 34.84 BMI Method:Stated General Appearance: Anxious, Obese, Other (MILDLY DYSPNEIC BUT TALKS NON-STOP IN FULL SENTENCES AT GREAT LENGTH. ) Eyes: Bilateral Eye Normal Inspection, Bilateral Eye PERRL, Bilateral Eye EOMI HEENT: PERRL/EOMI, TMs Normal, Normal ENT Inspection, Pharynx Normal, Moist Mucous Membranes Neck: Normal Inspection; No JVD Respiratory: No Rales, No Rhonci; Wheezing, Other (MILDLY DYSPNEIC) Cardiovascular: Regular Rate, Rhythm, No Edema, No JVD, No Murmur, Normal Peripheral Pulses Gastrointestinal: Non Tender, Soft Back: Normal Inspection, No CVA Tenderness, No Vertebral Tenderness Extremity: Normal Capillary Refill, Normal Inspection, Normal Range of Motion, Non Tender, No Calf Tenderness, No Pedal Edema Neurologic/Psychiatric: Alert, Oriented x3, No Motor/Sensory Deficits, lockstitch lining setter II- XII Norm as Tested, Other (ANXIOUS) Skin: Normal Color, Warm/Dry Lymphatic: No Adenopathy A/P-Cardiology Admission Diagnosis Shortness of breath Congestive heart failure acute on chronic left ventricular systolic dysfunction, nonischemic cardiomyopathy Hypotension Obesity Assessment/Plan Shortness of breath, reporting some improvement, still having some dyspnea Still having some active wheezing, started on MAT protocol, received Lasix yesterday Borderline hypotensive, might not tolerate aggressive diuresis Congestive heart failure, acute on chronic left ventricular systolic dysfunction, ejection fraction 15 to 20%, nonischemic cardiomyopathy Unable to tolerate Entresto or carvedilol due to hypotension Wearing a LifeVest. Cardiac catheterization was carried out by Dr. Durbin on October 03, 2021 reported as normal coronaries with no obstructive disease Sinus tachycardia, better at this time. Receiving oxygen at 4 L. Left bundle branch block, chronic, did not change compared to baseline. Patient will need BiV pacemaker/defibrillator which could improve her left ventricular function Hypotension, chronic, unable to tolerate aggressive treatment Tobaccoism, patient reported that she has stopped smoking on October 03, encouraged to continue with smoking cessation Obesity, BMI 34, discussed weight loss. Clinical Quality Measures AMI/AHF: ASA po Prior to arrival: BORIS Alfonso MD Oct 12, 2021 08:53
[2021-10-12] MEDS ORDERED: MIDODRINE HCL 2.5 MG PO SCH (09:00)
--- NOTE | 2021-10-12 09:12 | Diagnostic Imaging Report ---
EXAMINATION: Chest 1 view HISTORY: Heart failure COMPARISON: 10/11/2021 FINDINGS: Heart is mildly enlarged. There is a small left effusion. There is mild bibasilar atelectasis. No edema or pneumonia. IMPRESSION: 1. Small left effusion and mild bibasilar atelectasis, unchanged. Dictated by: Dictated on workstation # [id number]
[2021-10-12] MEDS: [UNRECOGNIZED DRUG - REMARK] PO SCH ×2 (09:15→20:33)
[2021-10-12] MEDS: ASPIRIN 81 MG CHEW (CHILDREN'S ASA) PO SCH (09:15)
--- NOTE | 2021-10-12 10:58 | History & Physical ---
YEIMI SESAY MD 10/12/21 1057: HPI History of Present Illness: 56 year old female with history of tobacco use, chronic cough (no formal diagnosis of COPD), recently diagnosed HFrEF with EF 15-20% presented 10/12 for chest pain and shortness of breath. Patient recently had work-up for chest pain with LHC showing non-obstructive CAD with reduced EF and echo revealing EF 15-20%. She was admitted and placed on metoprolol and entresto with subsequent in drop of pressure requiring inotropes. She was discharged 10/08 on midodrine, rosuvastatin, aspirin, and 40 mg lasix daily. On the day of admission, patient states that she woke up with her chest "fluttering" with associated chest pressure radiating to her back and right shoulder. She also reports worsening cough with sputum production, though no fevers or chills. Her blood pressure was elevated from what it typically is and he oxygen saturation was low, she reports in the 70s. Symptoms progressed throughout the day leading her to the ED. She denies any recent leg swelling. In the ED, found to be hypoxic requiring 4 L, ECG showed known LBBB with negative troponin. Creatinine 1.25 from normal baseline. Dimer 0.74. Flu and Covid negative. CXR with cardiomegaly, otherwise, not acute process. She was given solumedrol IV lasix, and admitted. Source: patient Date seen by provider: Oct 12, 2021 Time Seen by Provider: 07:30 Attending Physician Uzma Thomas MD PCP [facility] Consult Date of Admission Oct 11, 2021 at 22:10 Home Medications Home Medications Reviewed patient Home Medication Reconciliation performed by pharmacy medication reconciliations inorganic chemical technician and/or nursing. Patients Allergies have been reviewed. Allergies Coded Allergies: Penicillins (Verified Allergy, Unknown, 03/02/19) [id number]-Yitipm Hx Patient Social History Employed/Student: unemployed Smoking Status: Current Everyday Smoker 2nd Hand Smoke Exposure: Yes Recent Hopitalizations: No Alcohol Use?: No Substance type: Nicotine, Marijuana Tobacco type used: Cigarettes Have you traveled recently?: No Family Medical History Other Significan Family Hx: SOCIAL HISTORY: -SMOKES 3 PPD X 44 YEARS, CLAIMS NONE SINCE 10/03/21 -DENIES ETOH USE -DENIES DRUG USE CARDIAC CATH 10/03/[address] 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 No angiographically significant coronary artery disease. 2. Dilated cardiomyopathy, nonischemic, with global hypokinesis of left ventricle and left ventricular ejection fraction of 20%. 3. Left ventricular end-diastolic pressure is 16 mmHg. DISCUSSION AND RECOMMENDATIONS: She is being hospitalized for optimization of her regimen for cardiomyopathy and acute systolic congestive heart failure. She will be treated with beta blockers and Entresto. Diuretics will be used as needed and as tolerated. She may need a LifeVest for now. Review of Systems ([facility]) Constitutional: No chills, No fever EENTM: No nose congestion Respiratory: cough, dyspnea on exertion, orthopnea, short of breath Cardiovascular: chest pain; No edema Gastrointestinal: No abdominal pain, No diarrhea Skin: No change in color Reviewed Test Results Reviewed Test Results Lab As per HPI Radiology As per HPI Physical Exam-([facility]) Physical Exam Vital Signs VS - Last 72 Hours, by Label 10/11/21 10/11/21 10/11/21 10/11/21 19:37 23:03 23:15 23:15 Temp 36.8 37.5 Pulse 123 94 92 Resp 18 22 30 B/P (MAP) 129/94 (106) 102/65 125/85 (98) Pulse Ox 90 92 92 94 O2 Delivery Nasal Cannula Nasal Cannula High Flow N/C Nasal Cannula O2 Flow Rate 4.00 5.00 4.00 10/12/21 10/12/21 10/12/21 10/12/21 00:00 00:01 00:25 03:22 Temp 36.8 Pulse 95 98 123 Resp 21 B/P (MAP) 103/55 (71) Pulse Ox 92 90 95 O2 Delivery Nasal Cannula High Flow N/C O2 Flow Rate 4.00 4.00 FiO2 32 10/12/21 10/12/21 10/12/21 10/12/21 03:54 04:00 07:00 07:00 Pulse 78 78 Resp 17 B/P (MAP) 86/55 (65) Pulse Ox 90 92 94 O2 Delivery High Flow N/C Nasal Cannula High Flow N/C O2 Flow Rate 4.00 4.00 4.00 10/12/21 10/12/21 07:37 09:23 Temp 36.7 Pulse 86 Resp 20 B/P (MAP) 109/70 (83) Pulse Ox 93 94 O2 Delivery Nasal Cannula High Flow N/C O2 Flow Rate 4.00 4.00 Capillary Refill : Less Than 3 Seconds General Appearance: WD/WN, no apparent distress HEENT: pharynx normal Neck: non-tender, full range of motion Respiratory: chest non-tender, normal breath sounds; No crackles, No rales, No rhonchi, No wheezing; other (4 L NC) Cardiovascular: no edema; No JVD; other (Diminished heart sounds) Gastrointestinal: normal bowel sounds, non tender Extremities: no pedal edema Neurologic/Psychiatric: alert, oriented x 3 Skin: normal color, warm/dry Assessment/Plan Assessment/Plan Admission Status: Inpatient Order (span 2 midnights) Reason for Inpatient Admission: Acute hypoxic respiratory failure (1) Acute respiratory failure with hypoxemia Status: Acute Assessment & Plan: Reported saturations in 70s at home, requiring 4 L NC here. DDX of acute decompensated HFrEF, COPD exacerbation, PE. She is 4 kg down from prior discharge weight and creatinine bumped with lasix, do not feel she is significantly volume overloaded and will hold additional lasix today. No wheezing on exam, but significant smoking history and reports worsening cough/SOB, so will treat COPD exacerbation with steroids and duonebs. Lastly, does have d-dimer of 0.74. No leg swelling on exam, but cannot rule out PE. Will treat empirically with lovenox and will obtain CTA vs. V/Q potentially tomorrow. (2) Acute systolic heart failure Assessment & Plan: Recently diagnosed with EF 15-20% 2/2 NICM intolerant of GDMT due to hypotension. Not volume overloaded on exam, will hold diuresis. Cardiology consulted, appreciate recommendations. (3) COPD exacerbation Status: Acute Assessment & Plan: 44 PY history of smoking up to 3 PPD with chronic cough. Symptoms of cough with sputum and dyspnea, though no wheezing on exam. Will treat with 5 days prednisone (EOT 10/15) and scheduled duonebs. (4) Chronic hypotension Assessment & Plan: Hypotensive in the setting of HFrEF. Will resume home midodrine. (5) Hyperglycemia Onset Date: Unknown Assessment & Plan: Sliding scale insulin while admitted. Will check A1c. Clinical Quality Measures AMI/AHF: ASA po Prior to arrival: UZMA Crocker MD 10/12/21 1121: Home Medications Allergies Coded Allergies: Penicillins (Verified Allergy, Unknown, 03/02/19) Supervisory-Addendum Brief Supervisory Addendum I personally have seen and evaluated the patient and discussed the assessment and plan and agree with documentation by PGY3 Christiano Sesay MD. YEIMI SESAY MD Oct 12, 2021 10:57 UZMA THOMAS MD Oct 12, 2021 11:21
[2021-10-12 12:00] VITALS: BP 117/80
[2021-10-12 16:00] VITALS: BP 110/72
[2021-10-12] MEDS: inSUlin ASPART (NovoLOG) 1 UNIT/0.01 ML (CHARGE PER UNIT) SC SCH ×2 (16:22→20:34)
[2021-10-12] MEDS: ROSUVASTATIN 20 MG (CRESTOR) TABLET PO SCH (20:33)
[2021-10-12] MEDS: ACETAMINOPHEN 500 MG TAB (TYLENOL) PO PRN (20:33)
[2021-10-13] MEDS: RT-ALBUTEROL/IPRATROPIUM 3 ML (DUONEB) VIAL INH SCH ×4 (03:21→20:36)
[2021-10-13 04:55] LABS: BASOPHILS % (AUTO) 0 % (0-10); EOSINOPHILS % (AUTO) 0 % (0-10); HEMATOCRIT 36 % (35-52); HEMOGLOBIN 12.3 g/dL (11.5-16.0); LYMPHOCYTES # (AUTO) 1.1 10^3/uL (1.0-4.0); LYMPHOCYTES % (AUTO) 7 % (12-44); MEAN CORPUSCULAR HEMOGLOBIN 32 pg (25-34); MEAN CORPUSCULAR HGB CONC 34 g/dL (32-36); MEAN CORPUSCULAR VOLUME 96 fL (80-99); MEAN PLATELET VOLUME 11.4 fL (9.0-12.2); MONOCYTES # (AUTO) 0.8 10^3/uL (0.0-1.0); MONOCYTES % (AUTO) 5 % (0-12); NEUTROPHILS # (AUTO) 13.6 10^3/uL (1.8-7.8); NEUTROPHILS % (AUTO) 87 % (42-75); PLATELET COUNT 201 10^3/uL (130-400); WHITE BLOOD COUNT 15.6 10^3/uL (4.3-11.0)
[2021-10-13 05:04] LABS: ALBUMIN 3.7 GM/DL (3.2-4.5); POTASSIUM 4.3 MMOL/L (3.6-5.0)
[2021-10-13 05:05] LABS: CALCIUM 9.1 MG/DL (8.5-10.1)
[2021-10-13 05:06] LABS: TOTAL PROTEIN 6.4 GM/DL (6.4-8.2)
[2021-10-13 05:08] LABS: BILIRUBIN,TOTAL 0.2 MG/DL (0.1-1.0)
[2021-10-13 05:10] LABS: CREATININE SERUM 1.26 MG/DL (0.60-1.30)
[2021-10-13] MEDS: CATHETER FLUSH 10 ML SYR IV SCH ×3 (05:23→21:10)
[2021-10-13] MEDS: inSUlin ASPART (NovoLOG) 1 UNIT/0.01 ML (CHARGE PER UNIT) SC SCH ×4 (05:23→21:07)
[2021-10-13] MEDS ORDERED: FUROSEMIDE 40 MG/4 ML INJ (LASIX) IVP ONE (06:45)
[2021-10-13] MEDS: ASPIRIN E.C. 81 MG (ECOTRIN) TAB PO SCH ×3 (08:00→09:20)
[2021-10-13] MEDS: KCL 10 MEQ TAB (MICRO K) PO SCH (08:00)
[2021-10-13] MEDS: MAGNESIUM OXIDE (MAG-OX)400 MG TAB PO SCH (08:00)
[2021-10-13] MEDS: ENOXAPARIN 100 MG/1 ML (LOVENOX) SYR SC SCH (08:00)
[2021-10-13] MEDS: predniSONE 20 MG TAB PO SCH (08:00)
[2021-10-13] MEDS: ASPIRIN 81 MG CHEW (CHILDREN'S ASA) PO SCH (08:00)
[2021-10-13] MEDS: [UNRECOGNIZED DRUG - REMARK] PO SCH ×2 (08:01→21:08)
[2021-10-13] MEDS ORDERED: ROSU20TA32 PO (08:50)
[2021-10-13] MEDS ORDERED: POTA10TA PO (08:50)
[2021-10-13] MEDS ORDERED: SENN-273 PO (08:50)
--- NOTE | 2021-10-13 10:12 | Cardiology Progress Note ---
Subjective Date Seen by Provider: Oct 13, 2021 Time Seen by Provider: 10:09 Subjective/Events-last exam Patient was seen at bedside, laying down comfortably, feeling better, breathing better. Review of Systems General: No Chills, No Night Sweats; Fatigue, Malaise; No Appetite, No Other HEENT: No Head Aches, No Visual Changes, No Eye Pain, No Ear Pain, No Dysphasia, No Sinus Congestion, No Post Nasal Drip, No Sore Throat, No Other Pulmonary: Dyspnea; No Cough, No Pleuritic Chest Pain, No Other Cardiovascular: No: Chest Pain, Palpitations, Orthopnea, Paroxysmal Noc. Dyspnea, Edema, Lt Headedness, Other Objective-Cardiology Exam Last Set of Vital Signs Vital Signs 10/12/21 10/12/21 10/13/21 10/13/21 10/13/21 00:25 16:00 07:00 08:00 08:02 Temp 36.4 Pulse 73 Resp 19 B/P (MAP) 110/72 (85) Pulse Ox 96 O2 Delivery High Flow N/C O2 Flow Rate 2.00 FiO2 32 I&O Intake and Output 10/13/21 00:00 Intake Total 1210 ml Output Total 700 ml Balance 510 ml Intake Oral 1210 ml Output Urine Total 700 ml # Voids 2 General: Alert, Oriented X3, Cooperative HEENT: Atraumatic, PERRLA Neck: Supple, No JVD, No Thyromegaly Lungs: Clear to Auscultation, Normal Air Movement Heart: Regular Rate, Normal S1, Normal S2, No Murmurs Abdomen: Normal Bowel Sounds, Soft, No Tenderness, No Hepatosplenomegaly, No Masses Extremities: No Clubbing, No Cyanosis, No Edema, Normal Pulses, No Tendernes s/Swelling Skin: No Rashes, No Breakdown, No Significant Lesion Neuro: Normal Gait, Normal Speech, Strength at 5/5 X4 Ext, Normal Tone, Sensation Intact Psych/Mental Status: Mental Status NL, Mood NL Results Lab Laboratory Tests 10/13/21 04:44 A/P-Cardiology Admission Diagnosis Shortness of breath Congestive heart failure acute on chronic left ventricular systolic dysfunction, nonischemic cardiomyopathy Hypotension Obesity Assessment/Plan Shortness of breath, reporting improvement, maintained on oxygen. Blood pressure is better today. Continue to monitor Congestive heart failure, acute on chronic left ventricular systolic dysfunctio n, ejection fraction 15 to 20%, nonischemic cardiomyopathy Unable to tolerate Entresto or carvedilol due to hypotension Wearing a LifeVest. Cardiac catheterization was carried out by Dr. Durbin on October 03, 2021 reported as normal coronaries with no obstructive disease Sinus tachycardia, better at this time. Receiving oxygen at 4 L. Left bundle branch block, chronic, did not change compared to baseline. Patient will need BiV pacemaker/defibrillator which could improve her left ventricular function Hypotension, chronic, unable to tolerate aggressive treatment Tobaccoism, patient reported that she has stopped smoking on October 03, encouraged to continue with smoking cessation Obesity, BMI 34, discussed weight loss. BORIS BRO MD Oct 13, 2021 10:12
[2021-10-13] MEDS ORDERED: PRD20T PO (11:01)
--- NOTE | 2021-10-13 11:47 | Progress Note ---
YEIMI SESAY MD 10/13/21 1147: Subjective Subjective/Events-last exam No acute events overnight. Patient reports that she has been up to the bedside commode this AM. She has improving dyspnea, now weaned to 2 L NC. No chest pain. No abdominal pain. Objective Exam Last Set of Vital Signs Vital Signs Date Time Temp Pulse Resp B/P (MAP) Pulse Ox O2 Delivery O2 Flow Rate FiO2 10/13/21 11:15 91 Room Air 10/13/21 10:26 2.00 10/13/21 08:02 36.4 10/13/21 07:00 73 10/13/21 04:00 10/12/21 16:00 19 10/12/21 00:25 32 Capillary Refill : Less Than 3 Seconds I&O Intake and Output 10/13/21 00:00 Intake Total 1210 ml Output Total 700 ml Balance 510 ml Intake Oral 1210 ml Output Urine Total 700 ml # Voids 2 General: Alert, Oriented X3 HEENT: Atraumatic Neck: Supple, No JVD Lungs: Clear to Auscultation, Normal Air Movement, Other (No wheezing) Heart: Other (Diminished heart sounds) Abdomen: Normal Bowel Sounds, Soft Extremities: No Edema Skin: No Rashes Psych/Mental Status: Mental Status NL Results/Procedures Lab Laboratory Tests 10/12/21 13:20: 10/12/21 16:16: Glucometer 172H 10/12/21 19:52: Glucometer 219H 10/13/21 04:44: White Blood Count 15.6H, Red Blood Count 3.80, Hemoglobin 12.3, Hematocrit 36, Mean Corpuscular Volume 96, Mean Corpuscular Hemoglobin 32, Mean Corpuscular Hemoglobin Concent 34, Red Cell Distribution Width 11.7, Platelet Count 201, Mean Platelet Volume 11.4, Immature Granulocyte % (Auto) 0, Neutrophils (%) (Auto) 87H, Lymphocytes (%) (Auto) 7L, Monocytes (%) (Auto) 5, Eosinophils (%) (Auto) 0, Basophils (%) (Auto) 0, Neutrophils # (Auto) 13.6H, Lymphocytes # (Auto) 1.1, Monocytes # (Auto) 0.8, Eosinophils # (Auto) 0.0, Basophils # (Auto) 0.0, Immature Granulocyte # (Auto) 0.1, D-Dimer 0.40, Sodium Level 141, Potassium Level 4.3, Chloride Level 104, Carbon Dioxide Level 25, Anion Gap 12, Blood Urea Nitrogen 33H, Creatinine 1.26, Estimat Glomerular Filtration Rate 44, BUN/Creatinine Ratio 26, Glucose Level 152H, Calcium Level 9.1, Corrected Calcium 9.3, Total Bilirubin 0.2, Aspartate Amino Transf (AST/SGOT) 16, Alanine Aminotransferase (ALT/SGPT) 15, Alkaline Phosphatase 54, Total Protein 6.4, Albumin 3.7 Radiology As per HPI Assessment/Plan Assessment/Plan Admission Dx Acute hypoxic respiratory failure Admission Status: Inpatient Order (span 2 midnights) Reason for Inpatient Admission: Acute hypoxic respiratory failure (1) Acute respiratory failure with hypoxemia Status: Acute Assessment & Plan: Reported saturations in 70s at home, requiring 4 L NC on admission. DDX of acute decompensated HFrEF, COPD exacerbation > PE with down trending D-dimer. Holding diuresis now given euvolemic exam and bump in Cr, treating COPD exacerbation, and will discontinue empiric lovenox for PE given down-trending D-dimer. -Home O2 of 2 L on exertion ordered today -Hopeful DC in next 24 hours (2) Acute systolic heart failure Assessment & Plan: Recently diagnosed with EF 15-20% 2/2 NICM intolerant of GDMT due to hypotension. Not volume overloaded on exam, will hold diuresis. Cardiology consulted, appreciate recommendations. Planning for eventual BiV pacing to increase EF. (3) COPD exacerbation Status: Acute Assessment & Plan: 44 PY history of smoking up to 3 PPD with chronic cough. Symptoms of cough with sputum and dyspnea, though no wheezing on exam. Treating with with 5 days prednisone (EOT 10/15) and scheduled duonebs. (4) Chronic hypotension Assessment & Plan: In the setting of HFrEF, on home midodrine here. (5) Hyperglycemia Onset Date: Unknown Assessment & Plan: Sliding scale insulin while admitted. Will check A1c. Clinical Quality Measures AMI/AHF: ASA po Prior to arrival: UZMA Crocker MD 10/13/212136: Supervisory-Addendum Brief Supervisory Addendum I personally have seen and evaluated the patient and I agree with the documented assessment and plan by PGY3 Christiano Sesay MD. YEIMI SESAY MD Oct 13, 2021 11:47 UZMA THOMAS MD Oct 13, 2021 21:37
[2021-10-13 11:50] VITALS: BP 120/66
[2021-10-13 15:53] VITALS: BP 98/58
[2021-10-13 19:30] VITALS: BP 100/54
[2021-10-13] MEDS: ROSUVASTATIN 20 MG (CRESTOR) TABLET PO SCH (21:08)
[2021-10-13] MEDS: ACETAMINOPHEN 500 MG TAB (TYLENOL) PO PRN (21:08)
[2021-10-14] VITALS: BP 111/65
[2021-10-14] MEDS: RT-ALBUTEROL/IPRATROPIUM 3 ML (DUONEB) VIAL INH SCH ×2 (03:05→10:22)
[2021-10-14 04:00] VITALS: BP 107/71
[2021-10-14 05:06] LABS: HEMATOCRIT 39 % (35-52); HEMOGLOBIN 12.7 g/dL (11.5-16.0); MEAN CORPUSCULAR HEMOGLOBIN 32 pg (25-34); MEAN CORPUSCULAR HGB CONC 32 g/dL (32-36); MEAN CORPUSCULAR VOLUME 98 fL (80-99); MEAN PLATELET VOLUME 11.7 fL (9.0-12.2); PLATELET COUNT 207 10^3/uL (130-400); WHITE BLOOD COUNT 11.1 10^3/uL (4.3-11.0)
[2021-10-14 05:21] LABS: POTASSIUM 4.1 MMOL/L (3.6-5.0)
[2021-10-14 05:22] LABS: CALCIUM 8.9 MG/DL (8.5-10.1)
[2021-10-14 05:27] LABS: CREATININE SERUM 1.33 MG/DL (0.60-1.30)
[2021-10-14] MEDS: inSUlin ASPART (NovoLOG) 1 UNIT/0.01 ML (CHARGE PER UNIT) SC SCH ×2 (05:48→12:08)
[2021-10-14] MEDS: CATHETER FLUSH 10 ML SYR IV SCH (05:49)
--- NOTE | 2021-10-14 06:47 | Progress Note - Hospitalist ---
Subjective HPI/CC On Admission Date Seen by Provider: Oct 14, 2021 Objective Exam Vital Signs Vital Signs Date Time Temp Pulse Resp B/P (MAP) Pulse Ox O2 Delivery O2 Flow Rate FiO2 10/14/21 10:22 92 Room Air 10/14/21 08:00 35.9 69 18 118/77 (91) 10/13/21 15:53 3.00 10/12/21 00:25 32 Capillary Refill : Less Than 3 Seconds Results/Procedures Lab Laboratory Tests 10/14/21 04:59 Patient resulted labs reviewed. Clinical Quality Measures AMI/AHF: ASA po Prior to arrival: MONIKA Alicia DO Oct 14, 2021 06:47
[2021-10-14 08:00] VITALS: BP 118/77
[2021-10-14] MEDS ORDERED: ENOXAPARIN 40 MG/0.4 ML (LOVENOX) SYR SQ SCH (08:00)
[2021-10-14] MEDS: ASPIRIN E.C. 81 MG (ECOTRIN) TAB PO SCH (09:25)
[2021-10-14] MEDS: ASPIRIN 81 MG CHEW (CHILDREN'S ASA) PO SCH (09:25)
[2021-10-14] MEDS: KCL 10 MEQ TAB (MICRO K) PO SCH (09:25)
[2021-10-14] MEDS: MAGNESIUM OXIDE (MAG-OX)400 MG TAB PO SCH (09:25)
[2021-10-14] MEDS: predniSONE 20 MG TAB PO SCH (09:25)
[2021-10-14] MEDS: [UNRECOGNIZED DRUG - REMARK] PO SCH (09:26)
--- NOTE | 2021-10-14 10:03 | Cardiology Progress Note ---
Subjective Date Seen by Provider: Oct 14, 2021 Time Seen by Provider: 10:02 Subjective/Events-last exam Patient is sitting in bed, feeling better, breathing better. No new complaint Review of Systems General: No Chills, No Night Sweats, No Fatigue, No Malaise, No Appetite, No Other HEENT: No Head Aches, No Visual Changes, No Eye Pain, No Ear Pain, No Dysphasia, No Sinus Congestion, No Post Nasal Drip, No Sore Throat, No Other Pulmonary: No Dyspnea, No Cough, No Pleuritic Chest Pain, No Other Cardiovascular: No: Chest Pain, Palpitations, Orthopnea, Paroxysmal Noc. Dyspnea, Edema, Lt Headedness, Other Objective-Cardiology Exam Last Set of Vital Signs Vital Signs 10/12/21 10/13/21 10/14/21 10/14/21 00:25 15:53 08:00 09:54 Temp 35.9 Pulse 69 Resp 18 B/P (MAP) 118/77 (91) Pulse Ox 92 O2 Delivery Room Air O2 Flow Rate 3.00 FiO2 32 I&O Intake and Output 10/14/21 00:00 Intake Total 1900 ml Output Total 300 ml Balance 1600 ml Intake Oral 1900 ml Output Urine Total 300 ml # Voids 9 General: Alert, Oriented X3 HEENT: Atraumatic Neck: Supple, No JVD Lungs: Clear to Auscultation, Normal Air Movement, Other (No wheezing) Heart: Other (Diminished heart sounds) Abdomen: Normal Bowel Sounds, Soft Extremities: No Edema Skin: No Rashes Neuro: Normal Gait, Normal Speech, Strength at 5/5 X4 Ext, Normal Tone, Sensation Intact Psych/Mental Status: Mental Status NL Results Lab Laboratory Tests 10/14/21 04:59 A/P-Cardiology Admission Diagnosis Shortness of breath Congestive heart failure acute on chronic left ventricular systolic dysfunction, nonischemic cardiomyopathy Hypotension Obesity Assessment/Plan Shortness of breath, reporting improvement, okay for discharge and follow-up with primary music adapter as an outpatient. Status post hypotension, has borderline low blood pressure. Unable to tolerate beta-blockers, CONNER inhibitor and/or ARB, tolerating gentle diuresis. Continue to monitor Congestive heart failure, acute on chronic left ventricular systolic dysfunction, ejection fraction 15 to 20%, nonischemic cardiomyopathy Unable to tolerate Entresto or carvedilol due to hypotension Wearing a LifeVest. Cardiac catheterization was carried out by Dr. Durbin on October 03, 2021 reported as normal coronaries with no obstructive disease Sinus tachycardia, better at this time. Receiving oxygen at 4 L. Left bundle branch block, chronic, did not change compared to baseline. Patient will need BiV pacemaker/defibrillator which could improve her left ventricular function Tobaccoism, patient reported that she has stopped smoking on October 03, encouraged to continue with smoking cessation Obesity, BMI 34, discussed weight loss. BORIS BRO MD Oct 14, 2021 10:03
--- NOTE | 2021-10-14 11:14 | Discharge Summary ---
Discharge Summary Hospital Course Was the Problem List Reviewed?: Yes Problems/Dx: (1) Acute systolic CHF (congestive heart failure) (2) Acute respiratory failure with hypoxemia Status: Acute (3) Left bundle branch block Hospital Course Date of Admission: Oct 11, 2021 at 22:10 Admission Diagnosis : Family Physician/Provider: Magdy Gonsalez - [facility] Date of Discharge: 10/14/21 Discharge Diagnosis: Acute on chronic congestive heart failure, LifeVest, oxygen dependency Hospital Course: Patient had a short hospital course she was admitted for shortness of breath placed on oxygen and diuresed. Cardiology consulted and LifeVest was initiated after ejection fraction of 15% was noted. Oxygen supplement was required at discharge and patient will continue smoking cessation and all medications sent into the pharmacy. Labs and Pending Lab Test: Laboratory Tests 10/13/21 11:45: Glucometer 139H 10/13/21 16:02: Glucometer 150H 10/13/21 20:16: Glucometer 138H 10/14/21 04:59: White Blood Count 11.1H, Red Blood Count 4.01, Hemoglobin 12.7, Hematocrit 39, Mean Corpuscular Volume 98, Mean Corpuscular Hemoglobin 32, Mean Corpuscular Hemoglobin Concent 32, Red Cell Distribution Width 11.7, Platelet Count 207, Mean Platelet Volume 11.7, Sodium Level 142, Potassium Level 4.1, Chloride Level 105, Carbon Dioxide Level 26, Anion Gap 11, Blood Urea Nitrogen 35H, Creatinine 1.33H, Estimat Glomerular Filtration Rate 41, BUN/Creatinine Ratio 26, Glucose Level 94, Calcium Level 8.9 10/14/21 10:58: Glucometer 89 Home Meds Active Prednisone 20 Mg Tab 40 Mg PO DAILY 3 Days Reported Senna-S 8.6-50 mg Tablet (Sennosides/Docusate Sodium) 1 Each Tablet 1 Each PO DAILY K-Tab ER (Potassium Chloride) 10 Meq Tablet.er 10 Meq PO DAILY Rosuvastatin Calcium 20 Mg Tablet 20 Mg PO DAILY Midodrine HCl 2.5 Mg Tablet 2.5 Mg PO BID Magnesium Oxide 400 Mg Tablet 400 Mg PO DAILY Furosemide 40 Mg Tablet 40 Mg PO DAILY Aspirin 81 Mg Tab.chew 81 Mg PO DAILY Assessment/Pt Instructions PCP in 1 week Discharge Planning: <30 minutes discharge planning Discharge Instructions Discharge Diet: Low Sodium Diet Discharge Physical Examination Vital Signs Vital Signs Date Time Temp Pulse Resp B/P (MAP) Pulse Ox O2 Delivery O2 Flow Rate FiO2 10/14/21 10:22 92 Room Air 10/14/21 08:00 35.9 69 18 118/77 (91) 10/13/21 15:53 3.00 10/12/21 00:25 32 General Appearance: No Apparent Distress, WD/WN, Chronically ill, Obese Respiratory: Lungs Clear, Normal Breath Sounds Cardiovascular: Regular Rate, Rhythm Neurologic/Psychiatric: Alert, Oriented x3, No Motor/Sensory Deficits, Normal Mood/Affect Allergies: Coded Allergies: Penicillins (Verified Allergy, Unknown, 03/02/19) Discharge Summary Date of Admission Oct 11, 2021 at 22:10 Date of Discharge Discharge Date: Oct 14, 2021 Clinical Quality Measures AMI/AHF: ASA po Prior to arrival: MONIKA Alicia DO Oct 14, 2021 11:14
== END 2021-10-14 12:58 | disposition home or self-care (01) | DRG 291 ==
LOC: EDUNIT# 19:12 → ER 19:14 → CSD 22:10 → 4TH 10-13 10:11
PROVIDERS: ADMIT Family Medicine; ATTEND Internal Medicine
DX: I50.23 Acute on chronic systolic (congestive) heart failure (principal); J96.01 Acute respiratory failure with hypoxia; J44.1 Chronic obstructive pulmonary disease with (acute) exacerbation; I95.89 Other hypotension; F17.210 Nicotine dependence, cigarettes, uncomplicated; Z88.0 Allergy status to penicillin; Z99.81 Dependence on supplemental oxygen
CPT/HCPCS: 36415; 71045; 80048; 80053; 80061; 80306; 82947; 83036; 83735; 83880; 84443; 84484; 85007; 85025; 85027; 85379; 85610; 85730; 87636; 93005; 93041; 94640; 94760; 94761; 96372; 96374; 96375

== ENCOUNTER → 2021-11-06 | Outpatient (CLI) | payer SELFPAY ==
[~2021-11-06] MED LIST changes: +MIDO2.5T PO; +POTA10TA PO; +SENN-273 PO
[2021-11-06 11:55] LABS: CALCIUM 10.2 MG/DL (8.5-10.1); CREATININE SERUM 1.36 MG/DL (0.60-1.30); POTASSIUM 4.6 MMOL/L (3.6-5.0)
== END ==
LOC: LAB FS 11:05
PROVIDERS: ATTEND Internal Medicine Cardiovascular Disease
DX: I42.0 Dilated cardiomyopathy (principal)
CPT/HCPCS: 36415; 80048; 83735

== ENCOUNTER 2022-06-16 18:50 | Emergency (ER) | payer MEDICAID ==
--- NOTE | 2022-06-16 19:16 | ED Respiratory ---
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 Pt states she has the chills as well. Source: patient History of Present Illness Date Seen by Provider: Jun 16, 2022 Time Seen by Provider: 19:09 Initial Comments 57-year-old female here with complaints of not feeling well. Got fever cough some shortness of breath. Patient states a history of CHF and COPD. States she is trying to quit but she smoked [address] over to the hospital today. Patient does have fever. She is worried that she might have COVID. Just has a grand brand-new [place]. Does not primary care but has been followed with Dr. Durbin. Last saw him in November was unable to make the January appointment and has an appointment Saturday. Patient denies any increasing shortness of breath. Denies any increase in chest pain. Patient denies any frequency or urgency. States she is on Lasix and does urinate a lot anyway. Allergies and Home Medications Allergies Coded Allergies: Penicillins (Verified Allergy, Unknown, 03/02/19) Patient Home Medication List Home Medication List Reviewed: Yes Aspirin (Aspirin) 81 Mg Tab.chew, 81 MG PO DAILY, (Reported) Entered as Reported by: YAN WEBER on 10/03/21 07 Furosemide (Furosemide) 40 Mg Tablet, 40 MG PO DAILY, (Reported) Entered as Reported by: YAN WEBER on 10/03/21 0738 Magnesium Oxide (Magnesium Oxide) 400 Mg Tablet, 400 MG PO DAILY, (Reported) Entered as Reported by: YAN WEBER on 10/03/21 07 Midodrine HCl (Midodrine HCl) 2.5 Mg Tablet, 2.5 MG PO BID, (Reported) Entered as Reported by: UZMA THOMAS on 10/12/21 0635 Molnupiravir (Molnupiravir (Eua)) 200 Mg Capsule, 800 MG PO BID Prescribed by: Adele Butler on 06/16/222017 Potassium Chloride (K-Tab ER) 10 Meq Tablet.er, 10 MEQ PO DAILY, (Reported) Entered as Reported by: TIMI BRISCOE on 10/13/21 0850 Prednisone (Prednisone) 20 Mg Tab, 40 MG PO DAILY Prescribed by: YEIMI DELGADO on 10/13/21 1101 Rosuvastatin Calcium (Rosuvastatin Calcium) 20 Mg Tablet, 20 MG PO DAILY, (Reported) Entered as Reported by: TIMI BRISCOE on 10/13/21 0850 Sennosides/Docusate Sodium (Senna-S 8.6-50 mg Tablet) 1 Each Tablet, 1 EACH PO DAILY, (Reported) Entered as Reported by: TIMI BRISCOE on 10/13/21 0850 Review of Systems Review of Systems Constitutional: see HPI Past [id number] Hx Patient Social History Tobacco Use?: Yes Tobacco type used: Cigarettes Smoking Status: Current Everyday Smoker Substance use?: No Alcohol Use?: No Pt feels they are or have been: No Immunizations Up To Date First/Initial COVID19 Vaccinat: Not currently vaccinated Second COVID19 Vaccination Edi: Not currently vaccinated Third COVID19 Vaccination Date: Not currently vaccinated Seasonal Allergies Seasonal Allergies: No Past Medical History Surgery/Hospitalization HX: COPD, CHF Surgeries: Yes Cardiac, Gallbladder, Hysterectomy, Tonsillectomy Respiratory: Yes COPD Currently Using CPAP: No Currently Using BIPAP: No Cardiac: Yes (LIFE VEST 10/08/21; LBBB; NON-ISCHEMIC CARDIOMYOPATHY EF 20%) Cardiomyopathy, High Cholesterol Neurological: No Genitourinary: No Gastrointestinal: No Musculoskeletal: No Endocrine: No HEENT: No Cancer: No Psychosocial: No Integumentary: No Blood Disorders: No Family Medical History SOCIAL HISTORY: -SMOKES 3 PPD X 44 YEARS, CLAIMS NONE SINCE 10/03/21 -DENIES ETOH USE -DENIES DRUG USE CARDIAC CATH 10/03/[address] DURBIN: CONCLUSIONS: 1. No angiographically significant coronary artery disease. 2. Dilated cardiomyopathy, nonischemic, with global hypokinesis of left ventricle and left ventricular ejection fraction of 20%. 3. Left ventricular end-diastolic pressure is 16 mmHg. DISCUSSION AND RECOMMENDATIONS: She is being hospitalized for optimization of her regimen for cardiomyopathy and acute systolic congestive heart failure. She will be treated with beta blockers and Entresto. Diuretics will be used as needed and as tolerated. She may need a LifeVest for now. Physical Exam Vital Signs - First Documented 06/16/22 18:54 Temp 38.5 Pulse 106 Resp 20 B/P (MAP) 124/68 (86) Pulse Ox 93 O2 Delivery Room Air Capillary Refill : Less Than 3 Seconds Height: 5'9.00" Weight: 250lbs. oz. 113.528414gs; 34.84 BMI Method:Stated General Appearance: WD/WN, no apparent distress Eyes: Bilateral Eye Normal Inspection, Bilateral Eye PERRL, Bilateral Eye EOMI HEENT: pharynx normal Neck: non-tender, full range of motion Respiratory: chest non-tender, decreased breath sounds, other (course breath sounds with expiration bilaterally) Cardiovascular: regular rate, rhythm, no edema, no murmur Neurologic/Psychiatric: alert, oriented x 3 Skin: normal color, warm/dry Focused Exam Lactate Level 06/16/22 19:00: Lactic Acid Level 1.02 Lactic Acid Level Laboratory Tests Test 06/16/22 19:00 Lactic Acid Level 1.02 MMOL/L (0.50-2.00) Progress/Results/Core Measures Suspected Sepsis SIRS Temperature: Pulse: 106 Respiratory Rate: 20 Laboratory Tests 06/16/22 19:00: White Blood Count 7.1 Blood Pressure 124 /68 Mean: 86 06/16/22 19:00: Lactic Acid Level 1.02 Laboratory Tests 06/16/22 19:00: Creatinine 1.90H, Platelet Count 206, Total Bilirubin 0.3 Results/Orders Lab Results Laboratory Tests Test 06/16/22 18:58 06/16/22 19:00 Range/Units Influenza Type A (RT-PCR) Not Detected Not Detecte Influenza Type B (RT-PCR) Not Detected Not Detecte SARS-CoV-2 RNA (RT-PCR) Detected H Not Detecte White Blood Count 7.1 4.3-11.0 10^3/uL Red Blood Count 4.45 3.80-5.11 10^6/uL Hemoglobin 14.3 11.5-16.0 g/dL Hematocrit 41 35-52 % Mean Corpuscular Volume 91 80-99 fL Mean Corpuscular Hemoglobin 32 25-34 pg Mean Corpuscular Hemoglobin Concent 35 32-36 g/dL Red Cell Distribution Width 11.6 10.0-14.5 % Platelet Count 206 130-400 10^3/uL Mean Platelet Volume 10.5 9.0-12.2 fL Immature Granulocyte % (Auto) 0 % Neutrophils (%) (Auto) 70 42-75 % Lymphocytes (%) (Auto) 18 12-44 % Monocytes (%) (Auto) 11 0-12 % Eosinophils (%) (Auto) 1 0-10 % Basophils (%) (Auto) 0 0-10 % Neutrophils # (Auto) 5.0 1.8-7.8 10^3/uL Lymphocytes # (Auto) 1.3 1.0-4.0 10^3/uL Monocytes # (Auto) 0.8 0.0-1.0 10^3/uL Eosinophils # (Auto) 0.1 0.0-0.3 10^3/uL Basophils # (Auto) 0.0 0.0-0.1 10^3/uL Immature Granulocyte # (Auto) 0.0 0.0-0.1 10^3/uL Neutrophils % (Manual) 80 % Lymphocytes % (Manual) 15 % Monocytes % (Manual) 5 % Sodium Level 138 135-145 MMOL/L Potassium Level 4.5 3.6-5.0 MMOL/L Chloride Level 101 98-107 MMOL/L Carbon Dioxide Level 25 21-32 MMOL/L Anion Gap 12 5-14 MMOL/L Blood Urea Nitrogen 33 H 7-18 MG/DL Creatinine 1.90 H 0.60-1.30 MG/DL Estimat Glomerular Filtration Rate 30 BUN/Creatinine Ratio 17 Glucose Level 114 H 70-105 MG/DL Lactic Acid Level 1.02 0.50-2.00 MMOL/L Calcium Level 9.8 8.5-10.1 MG/DL Corrected Calcium 9.4 8.5-10.1 MG/DL Total Bilirubin 0.3 0.1-1.0 MG/DL Aspartate Amino Transf (AST/SGOT) 57 H 5-34 U/L Alanine Aminotransferase (ALT/SGPT) 60 H 0-55 U/L Alkaline Phosphatase 74 40-136 U/L Total Protein 7.7 6.4-8.2 GM/DL Albumin 4.5 3.2-4.5 GM/DL My Orders Orders - ADELE BUTLER MD Chest Pa/Lat (2 View) (06/16/22 19:16) Cbc And Manual Diff (06/16/22 19:16) Comprehensive Metabolic Panel (06/16/22 19:16) Lactic Acid Analyzer (06/16/22 19:16) Urinalysis (06/16/22 19:16) Covid 19 Inhouse Test (06/16/22 19:16) Influenza A And B By Pcr (06/16/22 19:16) Isolation Central Supply Req (06/16/22 19:16) Ekg Tracing (06/16/22 19:27) Ed Iv/Invasive Line Start (06/16/22 19:27) Vital Signs/I&O 06/16/22 06/16/22 18:54 20:21 Temp 38.5 Pulse 106 99 Resp 20 20 B/P (MAP) 124/68 (86) 115/56 Pulse Ox 93 93 O2 Delivery Room Air Room Air Capillary Refill : Less Than 3 Seconds Blood Pressure Mean: 86 Progress Note #1: Time: 19:45 Progress Note Labs reviewed and no elevation white blood count. Kidney function is stable in the stage IIIb kidney insufficiency. However patient is positive for COVID 19. Progress Note #2: Time: 20:15 Progress Note Chest x-ray reviewed all labs reviewed. Patient does have COVID. She does have oxygen at home so we will discharge her home with a prescription for molipuvinir and then have her follow-up with [facility] discussed with her that she since she is unvaccinated she needs a 5-day quarantine and then wear a mask for 5 additional days and monitor for symptoms. Diagnostic Imaging Diagonstic Imaging: Xray Plain Films/CT/US/NM/MRI: chest Comments [place] NAME: ARABELLA [facility] REC#: [id number] PT STATUS: REG ER : 1965 PHYSICIAN: ADELE BUTLER MD ADMIT DATE: 06/16/22/ER FS Signed Date of Exam:06/16/22 CHEST PA/LAT (2 VIEW) EXAMINATION: Two-view chest. INDICATION: Chest pain and shortness of breath. COMPARISON: 10/12/2021. FINDINGS: The diaphragms are flattened suggesting air trapping and underlying COPD. There is no superimposed pneumonia or significant effusion evident. There is no pneumothorax. There is stable enlargement of the cardiac silhouette. Pulmonary vascularity appears appropriate without current edema or failure. IMPRESSION: 1. Pulmonary hyperinflation suggesting air trapping and COPD. 2. Enlarged cardiac silhouette without current edema or failure. 3. No finding of pneumonia or significant effusion. Dictated by: Dictated on workstation # [id number] Dict: 06/16/221930 Trans: 06/16/221945 [facility] [id number] Interpreted by: DERRICK CARNEY MD Electronically signed by: DERRICK CARNEY MD 06/16/221945 Departure Impression Primary Impression: COVID-19 Disposition: 01 HOME, SELF-CARE Condition: Stable Departure-Patient Inst. Decision time for Depature: 20:18 Referrals: NO,LOCAL PHYSICIAN (PCP/Family) Primary Care Physician Patient Instructions: COVID-19 Overview, COVID-19 ED Scripts Molnupiravir (Molnupiravir (Eua)) 200 Mg Capsule 800 MG PO BID for 5 Days, #40 CAP Prov: ADELE BUTLER MD 06/16/22 ADELE BUTLER MD Jun 16, 2022 19:16
[2022-06-16 19:24] LABS: BASOPHILS % (AUTO) 0 % (0-10); EOSINOPHILS # (AUTO) 0.1 10^3/uL (0.0-0.3); EOSINOPHILS % (AUTO) 1 % (0-10); HEMATOCRIT 41 % (35-52); HEMOGLOBIN 14.3 g/dL (11.5-16.0); LYMPHOCYTES # (AUTO) 1.3 10^3/uL (1.0-4.0); LYMPHOCYTES % (AUTO) 18 % (12-44); MEAN CORPUSCULAR HEMOGLOBIN 32 pg (25-34); MEAN CORPUSCULAR HGB CONC 35 g/dL (32-36); MEAN CORPUSCULAR VOLUME 91 fL (80-99); MEAN PLATELET VOLUME 10.5 fL (9.0-12.2); MONOCYTES # (AUTO) 0.8 10^3/uL (0.0-1.0); MONOCYTES % (AUTO) 11 % (0-12); NEUTROPHILS % (AUTO) 70 % (42-75); PLATELET COUNT 206 10^3/uL (130-400); WHITE BLOOD COUNT 7.1 10^3/uL (4.3-11.0)
[2022-06-16 19:30] LABS: ALBUMIN 4.5 GM/DL (3.2-4.5); BILIRUBIN,TOTAL 0.3 MG/DL (0.1-1.0); CALCIUM 9.8 MG/DL (8.5-10.1); CREATININE SERUM 1.9 MG/DL (0.60-1.30); POTASSIUM 4.5 MMOL/L (3.6-5.0); TOTAL PROTEIN 7.7 GM/DL (6.4-8.2)
--- NOTE | 2022-06-16 19:38 | Diagnostic Imaging Report ---
EXAMINATION: Two-view chest. INDICATION: Chest pain and shortness of breath. COMPARISON: 10/12/2021. FINDINGS: The diaphragms are flattened suggesting air trapping and underlying COPD. There is no superimposed pneumonia or significant effusion evident. There is no pneumothorax. There is stable enlargement of the cardiac silhouette. Pulmonary vascularity appears appropriate without current edema or failure. IMPRESSION: 1. Pulmonary hyperinflation suggesting air trapping and COPD. 2. Enlarged cardiac silhouette without current edema or failure. 3. No finding of pneumonia or significant effusion. Dictated by: Dictated on workstation # [id number]
[2022-06-16 20:00] LABS: LYMPHOCYTES % (MANUAL) 15 %; MONOCYTES % (MANUAL) 5 %; NEUTROPHILS % (MANUAL) 80 %
[2022-06-16] MEDS ORDERED: MOLN200C PO ×2 (20:18→20:28)
[2022-06-16 20:21] VITALS: BP 115/56
== END 2022-06-16 20:32 | disposition home or self-care (01) ==
LOC: EDUNIT# 18:50 → ER FS 18:52
DX: U07.1 COVID-19 (principal); F17.210 Nicotine dependence, cigarettes, uncomplicated; Z99.81 Dependence on supplemental oxygen; Z28.310 Unvaccinated for COVID-19
CPT/HCPCS: 36415; 71046; 80053; 83605; 85007; 85027; 87636; 93005

== ENCOUNTER → 2022-06-28 | Outpatient (CLI) | payer MEDICAID ==
[~2022-06-28] MED LIST changes: +MOLN200C PO
== END ==
LOC: CARD 12:00
PROVIDERS: ATTEND Nurse Practitioner Family
DX: I42.0 Dilated cardiomyopathy (principal)
CPT/HCPCS: 93306

== ENCOUNTER → 2022-08-27 | Outpatient (CLI) | payer MEDICAID ==
[~2022-08-27] MED LIST changes: +POTA-177 PO; -POTA10TA37 PO
== END | disposition home or self-care (01) ==
LOC: PREOP 06:24
PROVIDERS: ATTEND Internal Medicine Cardiovascular Disease
DX: Z01.818 Encounter for other preprocedural examination (principal)

== ENCOUNTER 2022-09-03 09:30 | Day surgery (SDC) | payer MEDICAID ==
[2022-09-03] VITALS (15 sets, daily range): BP systolic 98–120; BP diastolic 59–84
[~2022-09-03] VITALS: Ht 175 cm; Wt 68.4 kg
--- NOTE | 2022-09-03 07:35 | Diagnostic Imaging Report ---
CHEST 1 VIEW, AP/PA ONLY Indication: Chronic systolic heart failure Comparison: 06/16/2022 Findings: Stable enlargement of cardiac silhouette. No pleural effusion or pneumothorax. There are few scattered sites of atelectasis in the left lung base. Impression: 1. Stable cardiomegaly without acute process. Dictated by: Dictated on workstation # [id number]
[2022-09-03 07:39] LABS: HEMATOCRIT 42 % (35-52); HEMOGLOBIN 14.6 g/dL (11.5-16.0); MEAN CORPUSCULAR HEMOGLOBIN 32 pg (25-34); MEAN CORPUSCULAR HGB CONC 35 g/dL (32-36); MEAN CORPUSCULAR VOLUME 92 fL (80-99); MEAN PLATELET VOLUME 10.4 fL (9.0-12.2); PLATELET COUNT 210 10^3/uL (130-400); WHITE BLOOD COUNT 7.5 10^3/uL (4.3-11.0)
[2022-09-03 08:03] LABS: ALBUMIN 4.5 GM/DL (3.2-4.5); BILIRUBIN,TOTAL 0.5 MG/DL (0.1-1.0); CALCIUM 10.8 MG/DL (8.5-10.1); CREATININE SERUM 3.75 MG/DL (0.60-1.30); POTASSIUM 4.1 MMOL/L (3.6-5.0); TOTAL PROTEIN 7.9 GM/DL (6.4-8.2)
[2022-09-03] MEDS: NS IV 1000 ML 1,000 ML IV SCH (09:00)
[~2022-09-03 09:30] MED LIST changes: +HEParin (CATH LAB) 1,000 ML IV ONE; +LIDOCAINE 1% INJ 30 ML (XYLOCAINE) VIAL ONE; +NORMAL SALINE 250 ML ONE; +NS IV 1000 ML 2,000 ML ONE; +SPIR25TA PO; +VANCOMYCIN 1000 MG/VIAL ONE; +ceFAZolin INJECTION 0 MG ONE
[2022-09-03] MEDS ORDERED: VANCOMYCIN INJECTION 1,000 MG in NS (IVPB) 250 ML IV ONE (09:45)
--- NOTE | 2022-09-03 09:55 | Pre-Op Note & Conscious Sedat ---
Pre-Operative Progress Note Date of Available H&P: Aug 31, 2022 Date H&P Reviewed: Sep 03, 2022 Time H&P Reviewed: 09:51 History & Physical: Changes noted below Changes from last HP Upon review of the patient's labs her BUN and creatinine is risen. She is clearly over diuresed. I therefore discussed with the patient and her daughter and sister the risk of receiving contrast which will likely occur during the procedure resulting in nephrotoxicity and possible even renal failure requiring dialysis. We discussed that the amount of contrast we use should be low but that there is an opinion that regardless of the amount the risk of contrast nephrotoxicity is the same regardless of the amount. We will give the patient some normal saline fluids at a low rate currently. I discussed postponing the procedure. The patient was adamant that the procedure not be postponed. She has tremendous anxiety around the procedure, her heart condition, her risk of sudden cardiac , etc. It is clear that postponing would cause more issues/concern than the potential risk of nephrotoxicity. Therefore with the patient and her family clearly acknowledging the risk of nephrotoxicity and potentially ending up on dialysis due to contrast received during the procedure, we will proceed with CRTD device implantation On exam she is not volume overloaded. She has a regular rhythm. Her lungs are clear to auscultation bilaterally.. Pre-Op Diagnosis: Nonischemic cardiomyopathy, class III heart failure, LBBB Conscious Sedation Pre-Proced ASA Score 4 Procedure to be done by anesthesia. For ASA 3 and 4: Consider anesthesia and medical clearance. Also, for patients with a history of failed moderate sedation consider anesthesia. Mallampati Classification Grade 3 Sedation Plan Discussed risks with patient/fam Anesthesia will be doing sedation for the procedure. JUANA ISIDRO MD Sep 03, 2022 09:55
[2022-09-03] MEDS ORDERED: fentaNYL INJ 100 MCG/2 ML AMP ONE (09:59)
[2022-09-03] MEDS ORDERED: ROCURONIUM 10 MG/ML 5 ML SYRINGE IV ONE (10:00)
[2022-09-03] MEDS ORDERED: SUCCINYLCHOLINE INJ 100 MG/5 ML SYR/VIAL ONE (10:00)
[2022-09-03] MEDS ORDERED: MIDAZOLAM 2 MG/2 ML (VERSED) VIAL ONE (10:00)
[2022-09-03] MEDS ORDERED: proPOfol 200 MG/20 ML (DIPRIVAN) VIAL IV ONE (10:01)
[2022-09-03] MEDS ORDERED: LIDOCAINE BOLUS 100 MG/5 ML (IMS) SYR ONE (10:01)
[2022-09-03] MEDS ORDERED: ETOMIDATE IV SOLN 20 MG/10 ML VIAL ONE (10:14)
[2022-09-03] MEDS ORDERED: SEVOFLURANE (ULTANE) 15 ML INHAL SOLN ONE ×2 (10:18→14:25)
[2022-09-03] MEDS ORDERED: PHENYLEPHRINE INJ 10 MG/ML (FOR PYXIS KITS ONLY) ONE (10:45)
[2022-09-03] MEDS ORDERED: NS (IVPB) 250 ML ONE (10:47)
--- NOTE | 2022-09-03 11:01 | ICD Implantation ---
ICD-PPM Attending Sponge Hooker: Fawad Isidro MD Fellow: None Preoperative diagnosis: [Nonischemic cardiomyopathy, severe LV dysfunction, class III heart failure, left bundle branch block greater than 150 MS, primary prevention of sudden cardiac ] Postoperative diagnosis: Same Procedure(s) Performed: [LABEL STITCHER-D device implantation--> very difficult and prolonged procedure. Procedure prolonged by roughly an hour based on the complexity of the patient's anatomy, and inability to use contrast due to severe renal insufficiency] Procedure Description: Successful PROCEDURE DETAILS: Once patient was adequately sedated prepped and draped utilizing fluoroscopy we marked the site of incision in the left deltopectoral groove. Incision was made and extended the pectoral fascia. Patient is morbidly obese and has a significantly deep pocket. Blunt Bovie dissection was utilized. There were a few areas of oozing and small arterials that needed cautery. Pocket was made inferiorly without difficulty and hemostasis was obtained. Utilizing a micropuncture access needle the left axillary vein was cannulated on 3 separate occasions. Sheaths were placed. The RV lead was positioned in the mid to low septum. Testing of the lead demonstrated good functional with the active- fixation mechanism extended. Attention was then turned to the CS. The patient has a severely dilated heart which was also rotated given the size of the LV. Cannulation of the CS was very difficult prolong the procedure by a minimum of 30 minutes. Initial attempts to cannulate the CS were with the guide. Repeated cannulation of the RV was noted. We then utilized an 035 wire. Again we could only cannulate the RV. We then utilized a Glidewire through the sheath. There at least 2 occasions where it appeared to be reasonably positioned in the CS and a tiny puff of contrast was utilized demonstrating that was still in the RV. Ultimately I used a decapolar deflectable catheter through the CS guide and with a significant amount of manipulation and time and mapping was able to successfully cannulate the coronary sinus. In fact once cannulated the catheter subselected a posterior lateral vein branch. With the need to avoid contrast at all cost given the patient's severe renal insufficiency I did not pursue further venography or cannulation of the main body of the CS but rather excepted this subselection. I was unable to advance the Medtronic quadripolar LV lead over a run-through wire. I was able to select a superior distal subbranch. The lead appeared stable. We did testing. There were 2 vectors but otherwise there was no capture throughout a large section of the heart here. The 2 vectors appeared stable and acceptable. Therefore I positioned the RA lead as described below. I then secured the RA and RV ICD leads as described below. I slid away the outer short sheath from the LV guide but before splitting the LV guide I retested the lead. Retesting lead demonstrated poor function with no significant capture at high outputs. The lead had to have micro dislodged. I therefore readvanced the run-through wire through the lead. I brought the lead back in subselected another branch turning inferiorly which then turned slightly upward. Testing here demonstrated diaphragmatic stimulation in all vectors. I then tested another subbranch. That showed no capture in all vectors. I then went back to a initial subbranch advancing it slightly more distal it appeared to wedge better and appeared stable with good function and at least 2 vectors. Ultimately excepted the site. The Micra dislodgment and repositioning of the lead into 4-5 different subbranches prolonged case time by a minimum of 30 minutes. Ultimately we appear to demonstrate good function at least 2 vectors. When I said good function I mean acceptable thresholds with no significant diaphragmatic stimulation. Attention was then turned to the RA lead. The RA lead was positioned into the appendage. The lead tested well in that setting. The leads were then secured with 0-0 Ethibond suture and the retention butterflies. I retested the LV lead and it appears stable. The LV sheath was carefully split away without dislodging the lead. Then the LV lead was secured as well. The pocket was flushed with saline solution. The leads were then connected to the LABEL STITCHER-D generator and all setscrews were tightened and assessed to be secure. The generator and leads were placed in the pocket header side up. The LABEL STITCHER-D generator was secured to the pectoral fascia with 0-0 Ethibond suture. The pocket was then closed in 3 running layers of absorbable suture. Closure was with 2 layers of 2-0 Vicryl and 1 layer of 4.0 Monocryl. Dermabond surgical glue was applied. Patient tolerated the procedure well. Procedure Findings: Adequate testing of device leads Anesthesia: Moderate sedation via RN Sedation: Performed by anesthesiaGeneral anesthesia performed with a LMA. Estimated blood loss: [ 50] mL Complications: None Specimens removed: None NOTE there is a risk of lead dislodgment of the LV lead if that is the case then she would need better optimization of her renal function before I would reattempt positioning of the lead and the different branches of the CS which would require a clear venogram and possibly more contrast. Recommendations: - Pain control as needed --Chest x-ray in the morningPA and lateral --Device check in the morning --Potential discharge tomorrow morning -- No heparin for 72 hours post implant of any kind -- Incision check in [address] Echevarria's office -- Would consider additional IV fluids post procedure but cautiously given patient's heart failure. --Recheck BMP tomorrow morning. Ensure creatinine remaining relatively stable. Fawad Isidro MD, FAC,[facility] FAWAD ISIDRO MD Sep 03, 2022 11:01
[2022-09-03] MEDS ORDERED: ONDANSETRON 4 MG/2 ML (SDV) Z0FRAN IVP PRN (14:15)
[2022-09-03] MEDS ORDERED: HYDROmorphone 2 MG/ML VIAL (DILAUDID) IV ONE (14:15)
[2022-09-03] MEDS ORDERED: ONDANSETRON 4 MG/2 ML (SDV) Z0FRAN ONE (14:28)
[2022-09-03] MEDS ORDERED: PATIENT MAY USE OWN MEDS, ALL PO SCH (14:30)
[2022-09-03] MEDS ORDERED: NS IV 1000 ML 1,000 ML IV SCH (14:30)
[2022-09-04] VITALS (8 sets, daily range): BP systolic 90–132; BP diastolic 65–83
[2022-09-04] MEDS ORDERED: ACETAMINOPHEN 325 MG TABLET PO PRN (01:15)
[2022-09-04 05:48] LABS: ALBUMIN 3.8 GM/DL (3.2-4.5)
[2022-09-04 05:49] LABS: POTASSIUM 4.4 MMOL/L (3.6-5.0)
[2022-09-04 05:50] LABS: CALCIUM 8.4 MG/DL (8.5-10.1)
[2022-09-04 05:51] LABS: TOTAL PROTEIN 6.4 GM/DL (6.4-8.2)
[2022-09-04 05:53] LABS: BILIRUBIN,TOTAL 0.3 MG/DL (0.1-1.0)
[2022-09-04 05:55] LABS: CREATININE SERUM 2.9 MG/DL (0.60-1.30)
--- NOTE | 2022-09-04 08:36 | Anesthesia-General Post-Op ---
General Patient Condition Mental Status/LOC: Same as Preop Cardiovascular: Satisfactory Nausea/Vomiting: Absent Respiratory: Satisfactory Pain: Controlled Complications: Absent Post Op Complications Complications None Follow Up Care/Instructions Patient Instructions None needed. Anesthesia/Patient Condition Patient Condition Patient is doing well, no complaints, stable vital signs, no apparent adverse anesthesia problems. No complications reported per nursing. D/C home per [facility] [place] [place] Criteria: Yes ANTONIETTA AQUINO CRNA Sep 04, 2022 08:36
--- NOTE | 2022-09-04 09:01 | Progress Note - Cardiology ---
Cardiology SOAP Progress Note Subjective: Sitting up in bed States she feels she is still tired from the anesthesia yesterday No c/o SOB, palpitations No c/o CP or device site pain No c/o n/v Objective: I&O/Vital Signs 09/04/22 09/04/22 09/05/22 09/05/22 21:12 21:33 00:00 00:08 Temp 36.7 Pulse 85 Resp 25 B/P (MAP) 97/58 (71) Pulse Ox 97 93 O2 Delivery Nasal Cannula Nasal Cannula Nasal Cannula Nasal Cannula O2 Flow Rate 2.00 2.00 2.00 2.00 09/05/22 09/05/22 09/05/22 09/05/22 01:00 01:57 03:23 04:00 Temp 36.6 Pulse 82 87 Resp 19 B/P (MAP) 112/73 (86) Pulse Ox 97 95 O2 Delivery Nasal Cannula Nasal Cannula Nasal Cannula O2 Flow Rate 2.00 2.00 2.00 09/05/22 09/05/22 09/05/22 07:10 07:34 08:00 Temp 36.6 Pulse 92 93 Resp 17 B/P (MAP) 115/78 (90) Pulse Ox 100 96 O2 Delivery Nasal Cannula Nasal Cannula O2 Flow Rate 2.00 2.00 09/05/22 00:00 Intake Total 1230 ml Output Total 1300 ml Balance -70 ml Weight (Pounds): 250 Weight (Calculated Kilograms): 113.741771 Side: left Device Insertion Site: without hematoma Swelling: without swelling Bruising: mild bruising Constitutional: AAO x 3, well-developed, well-nourished Respiratory: No accessory muscle use, No respiratory distress; chest expansion is symmetric, chest is bilaterally symmetric, rhonchi (scattered) Cardiovascular: regular rate-rhythm; No JVD; S1 and S2 Gastrointestional: No tender; soft, round, audible bowel sounds Extremities: no lower extremity edema bilateral Neurologic/Psychiatric: grossly intact (moves all extremities) Skin: No rash on exposed areas, No ulcerations on exposed areas Results/Procedures: Labs Laboratory Tests 09/05/22 05:15: White Blood Count 5.9, Red Blood Count 3.79L, Hemoglobin 12.1, Hematocrit 36, Mean Corpuscular Volume 96, Mean Corpuscular Hemoglobin 32, Mean Corpuscular Hemoglobin Concent 33, Red Cell Distribution Width 11.8, Platelet Count 112L, Mean Platelet Volume 10.9, Percent Immature Platelet Fraction 3.8, Sodium Level 137, Potassium Level 4.5, Chloride Level 106, Carbon Dioxide Level 22, Anion Gap 9, Blood Urea Nitrogen 31H, Creatinine 2.13H, Estimat Glomerular Filtration Rate 26, BUN/Creatinine Ratio 15, Glucose Level 94, Calcium Level 8.8, Magnesium Level 2.1 Microbiology 09/03/22 MRSA Screen - Final, Complete MRSA not isolated A/P: Assessment: S/P Bi-V device implant by Dr. Waldrop on 09-03-22: -Per Dr. Martini note of 09-03-22: NOTE there is a risk of lead dislodgment of the LV lead if that is the case then she would need better optimization of her renal function before I would reattempt positioning of the lead and the different branches of the CS which would require a clear venogram and possibly more contrast. Acute on chronic CKD 3 - renal function has improved as of this morning Chronically low bp - worse after initiation of beta-yoan and Entresto, now back to baseline (80 - 100 systolic) i.e., intolerant to beta-yoan, CONNER-inhib, ARB NICM - Cardiac cath of 10-03-21 showed no significant CAD. LVEF 20%. LVEDP 16 mmHg - Refuses Life-Vest - Coreg and Entresto started - then d/c'd because of intolerance (due to persistently low bp) - Echocadiogram of 06-28-22 shows LVEF 15-20%. Grade 1 diastolic dysfunction Chronic systolic CHF, NYHA class 3 - clinically improving Chronic tobacco use (average 2 ppd for more than 40 years) - cessation advised Abnormal ECG - ECG on 09/20/21: NSR and LBBB Plan: S/P Bi-V implant by Dr. Waldrop on 09-03-22 - lead displacement - attempting to contact Dr. Waldrop for transfer to [facility] for lead revision CKD 3 - Cr has improved some, but still nearly 3.0 - continue to hold Lasix and aldactone Not suitable for CONNER or ARB d/t reasons noted above and renal function Monitor lab closely JAYLIN DE OLIVEIRA Sep 04, 2022 09:01
[2022-09-04] MEDS ORDERED: RT-ALBUTEROL/IPRATROPIUM 3 ML (DUONEB) VIAL INH PRN (12:00)
[2022-09-04] MEDS: RT-ALBUTEROL/IPRATROPIUM 3 ML (DUONEB) VIAL INH SCH ×3 (14:30→21:33)
--- NOTE | 2022-09-04 14:38 | Diagnostic Imaging Report ---
INDICATION: Postop pacemaker placement. TECHNIQUE/COMPARISON: PA and lateral chest obtained at 9:05 AM and compared to 09/03/2022. FINDINGS: There is cardiomegaly. There is a new multilead pacemaker device in place. There is some mild bibasilar atelectasis. There is no pneumothorax or pleural fluid. IMPRESSION: Cardiomegaly. New pacemaker device in place. No pneumothorax or pleural fluid. Bibasilar atelectatic change noted. Dictated by: Dictated on workstation # [id number]
--- NOTE | 2022-09-04 16:00 | Progress Note - Cardiology ---
Cardiology SOAP Progress Note Subjective: No cp or palp or syncope or shortness of breath Gen weakness and malaise No n/v/d No swelling Objective: I&O/Vital Signs 09/04/22 09/04/22 09/04/22 09/04/22 04:00 04:07 04:08 07:16 Temp 37.2 Pulse 90 85 Resp 20 B/P (MAP) 104/74 (84) Pulse Ox 98 O2 Delivery Nasal Cannula Nasal Cannula Nasal Cannula O2 Flow Rate 4.00 4.00 4.00 09/04/22 09/04/22 09/04/22 09/04/22 08:00 08:05 08:25 10:15 Temp 36.6 Pulse 85 Resp 17 B/P (MAP) 102/66 (78) Pulse Ox 93 93 O2 Delivery Nasal Cannula Room Air Room Air Nasal Cannula O2 Flow Rate 4.00 0.00 2.00 09/04/22 09/04/22 09/04/22 09/04/22 11:00 11:53 12:00 13:10 Temp 36.6 36.9 Pulse 90 90 90 86 Resp 20 18 B/P (MAP) 105/66 (79) 90/65 (73) Pulse Ox 93 93 92 O2 Delivery Room Air Room Air FiO2 28 09/04/22 14:30 Pulse Ox 93 O2 Delivery Nasal Cannula O2 Flow Rate 2.00 09/04/22 00:00 Intake Total 480 ml Output Total 150 ml Balance 330 ml Weight (Pounds): 250 Weight (Calculated Kilograms): 113.521854 Side: left Device Insertion Site: without hematoma Swelling: without swelling Bruising: mild bruising Constitutional: AAO x 3, well-developed, well-nourished Respiratory: No accessory muscle use, No respiratory distress; chest expansion is symmetric, chest is bilaterally symmetric, rhonchi (scattered) Cardiovascular: regular rate-rhythm; No JVD; S1 and S2 Gastrointestional: No tender; soft, round, audible bowel sounds Extremities: no lower extremity edema bilateral Neurologic/Psychiatric: other (moves all limb equally) Skin: No rash on exposed areas, No ulcerations on exposed areas Results/Procedures: Labs Laboratory Tests 09/04/22 04:50: Sodium Level 136, Potassium Level 4.4, Chloride Level 107, Carbon Dioxide Level 19L, Anion Gap 10, Blood Urea Nitrogen 43H, Creatinine 2.90#H, Estimat Glomerular Filtration Rate 18, BUN/Creatinine Ratio 15, Glucose Level 100, Calcium Level 8.4L, Corrected Calcium 8.6, Total Bilirubin 0.3, Aspartate Amino Transf (AST/SGOT) 35H, Alanine Aminotransferase (ALT/SGPT) 39, Alkaline Phosphatase 55, Total Protein 6.4, Albumin 3.8 Microbiology 09/03/22 MRSA Screen - Final, Complete MRSA not isolated Laboratory Tests 09/03/22 07:31 09/04/22 04:50 A/P: Assessment: S/P Bi-V device implant by Dr. Waldrop on 09-03-22: - Dislodgement of all leads as shown on pacemaker interrogation and chest x-ray of 09/04/22 Acute on chronic CKD 3 - renal function has improved as of this morning Chronically low bp - worse after initiation of beta-yoan and Entresto, now back to baseline (80 - 100 systolic) i.e., intolerant to beta-yoan, CONNER-inhib, ARB NICM - Cardiac cath of 10-03-21 showed no significant CAD. LVEF 20%. LVEDP 16 mmHg - Refuses Life-Vest - Coreg and Entresto started - then d/c'd because of intolerance (due to persistently low bp) - Echocadiogram of 06-28-22 shows LVEF 15-20%. Grade 1 diastolic dysfunction Chronic systolic CHF, NYHA class 3 - clinically improving Chronic tobacco use (average 2 ppd for more than 40 years) - cessation advised Abnormal ECG - ECG on 09/20/21: NSR and LBBB Plan: S/P Bi-V implant by Dr. Waldrop on 09-03-22 - lead displacement - attempting to contact Dr. Waldrop for transfer to [facility] for lead revision CKD 4 - Cr shows improvement - continue to hold Lasix and aldactone Not suitable for CONNER or ARB d/t reasons noted above and renal function Monitor lab closely SACHIN COLEMAN MD [facility] CCDS Sep 04, 2022 16:00
[2022-09-04] MEDS: NS IV 1000 ML 1,000 ML IV SCH (17:05)
[2022-09-04] MEDS ORDERED: MIDODRINE 10 MG (PROAMATINE) TAB PO SCH (18:00)
[2022-09-04] MEDS ORDERED: MIDODRINE 10 MG (PROAMATINE) TAB PO PRN (18:00)
[2022-09-04] MEDS: ACETAMINOPHEN 500 MG TAB (TYLENOL) PO PRN (20:48)
[2022-09-04] MEDS ORDERED: ROSUVASTATIN 20 MG (CRESTOR) TABLET PO SCH (21:00)
[2022-09-05] VITALS: BP 97/58
[2022-09-05] MEDS: RT-ALBUTEROL/IPRATROPIUM 3 ML (DUONEB) VIAL INH SCH ×2 (01:57→07:07)
[2022-09-05 04:00] VITALS: BP 112/73
[2022-09-05 05:56] LABS: HEMOGLOBIN 12.1 g/dL (11.5-16.0); MEAN PLATELET VOLUME 10.9 fL (9.0-12.2); WHITE BLOOD COUNT 5.9 10^3/uL (4.3-11.0)
[2022-09-05 06:05] LABS: POTASSIUM 4.5 MMOL/L (3.6-5.0)
[2022-09-05 06:07] LABS: CALCIUM 8.8 MG/DL (8.5-10.1)
[2022-09-05 06:11] LABS: CREATININE SERUM 2.13 MG/DL (0.60-1.30)
[2022-09-05 06:13] LABS: MAGNESIUM 2.1 MG/DL (1.6-2.4)
[2022-09-05 08:00] VITALS: BP_SYST 110; BP_SYST 115; BP_DIAS 73; BP_DIAS 78
[2022-09-05] MEDS: ACETAMINOPHEN 500 MG TAB (TYLENOL) PO PRN (08:01)
--- NOTE | 2022-09-05 08:49 | Progress Note - Cardiology ---
Cardiology SOAP Progress Note Subjective: Sitting up in bed No c/o CP, palpitations Feels her SOB is at its baseline; wearing oxygen C/O mild device site discomfort No c/o n/v Objective: I&O/Vital Signs 09/05/22 09/05/22 09/05/22 09/05/22 01:57 03:23 04:00 07:10 Temp 36.6 Pulse 87 Resp 19 B/P (MAP) 112/73 (86) Pulse Ox 97 95 100 O2 Delivery Nasal Cannula Nasal Cannula Nasal Cannula Nasal Cannula O2 Flow Rate 2.00 2.00 2.00 2.00 09/05/22 09/05/22 09/05/22 09/05/22 07:34 08:00 08:00 09:00 Temp 36.6 Pulse 92 96 93 Resp 22 17 B/P (MAP) 110/73 (85) 115/78 (90) Pulse Ox 94 96 O2 Delivery Nasal Cannula Nasal Cannula Room Air O2 Flow Rate 2.00 2.00 0.00 09/05/22 00:00 Intake Total 1230 ml Output Total 1300 ml Balance -70 ml Weight (Pounds): 250 Weight (Calculated Kilograms): 113.157801 Side: left Device Insertion Site: without hematoma Swelling: without swelling Bruising: mild bruising Constitutional: AAO x 3, well-developed, well-nourished Respiratory: No accessory muscle use, No respiratory distress; chest expansion is symmetric, chest is bilaterally symmetric, rhonchi (scattered) Cardiovascular: regular rate-rhythm; No JVD; S1 and S2 Gastrointestional: No tender; soft, round, audible bowel sounds Extremities: no lower extremity edema bilateral Neurologic/Psychiatric: other (moves all limb equally) Skin: No rash on exposed areas, No ulcerations on exposed areas Results/Procedures: Labs Laboratory Tests 09/05/22 05:15: White Blood Count 5.9, Red Blood Count 3.79L, Hemoglobin 12.1, Hematocrit 36, Mean Corpuscular Volume 96, Mean Corpuscular Hemoglobin 32, Mean Corpuscular Hemoglobin Concent 33, Red Cell Distribution Width 11.8, Platelet Count 112L, Mean Platelet Volume 10.9, Percent Immature Platelet Fraction 3.8, Sodium Level 137, Potassium Level 4.5, Chloride Level 106, Carbon Dioxide Level 22, Anion Gap 9, Blood Urea Nitrogen 31H, Creatinine 2.13H, Estimat Glomerular Filtration Rate 26, BUN/Creatinine Ratio 15, Glucose Level 94, Calcium Level 8.8, Magnesium Level 2.1 Microbiology 09/03/22 MRSA Screen - Final, Complete MRSA not isolated Procedures NAME: ARABELLA ASHRAF [facility] REC#: [id number] PT STATUS: REG SDC : 1965 PHYSICIAN: JUANA WALDROP MD ADMIT DATE: 09/03/22/ICU Signed Date of Exam:09/04/22 CHEST PA/LAT (2 VIEW) INDICATION: Postop pacemaker placement. TECHNIQUE/COMPARISON: PA and lateral chest obtained at 9:05 AM and compared to 09/03/2022. FINDINGS: There is cardiomegaly. There is a new multilead pacemaker device in place. There is some mild bibasilar atelectasis. There is no pneumothorax or pleural fluid. IMPRESSION: Cardiomegaly. New pacemaker device in place. No pneumothorax or pleural fluid. Bibasilar atelectatic change noted. Dictated by: Dictated on workstation # [id number] Dict: 09/04/22 1413 Trans: 09/05/22 0800 [id number] Interpreted by: MANISHA CANCINO MD Electronically signed by: MANISHA CANCINO MD 09/05/22 0800 A/P: Assessment: S/P Bi-V device implant by Dr. Waldrop on 09-03-22: - Dislodgement of all leads as shown on pacemaker interrogation and chest x-ray of 09/04/22 - Dr. Durbin has spoken with Dr. Waldrop of EP services and he advises she be scheduled as an out patient for lead revision Acute on chronic CKD 3 - renal function has again improved as of this morning Chronically low bp - worse after initiation of beta-yoan and Entresto, now back to baseline (80 - 100 systolic) i.e., intolerant to beta-yoan, CONNER-inhib, ARB NICM - Cardiac cath of 10-03-21 showed no significant CAD. LVEF 20%. LVEDP 16 mmHg - Refuses Life-Vest - Coreg and Entresto started - then d/c'd because of intolerance (due to persistently low bp) - Echocadiogram of 06-28-22 shows LVEF 15-20%. Grade 1 diastolic dysfunction Chronic systolic CHF, NYHA class 3 - clinically improving Chronic tobacco use (average 2 ppd for more than 40 years) - cessation advised Abnormal ECG - ECG on 09/20/21: NSR and LBBB Plan: Complex issue S/P Bi-V implant by Dr. Waldrop on 09-03-22 - lead displacement - Dr. Durbin has spoken with Dr. Waldrop; he advises she be scheduled as an out pt for device lead revision CKD 3-4 - Cr again shows improvement - continue to hold Lasix and aldactone Not suitable for CONNER or ARB d/t reasons noted above and renal function Monitor lab closely JAYLIN DE OLIVEIRA Sep 05, 2022 08:49
--- NOTE | 2022-09-05 10:01 | Discharge Inst-Cardiology ---
Discharge Inst-Cardiac Discharge Medications Continued Medications: Midodrine HCl (Midodrine HCl) 2.5 Mg Tablet 2.5 MG PO BID Rosuvastatin Calcium (Rosuvastatin Calcium) 20 Mg Tablet 20 MG PO DAILY, TAB Discontinued Medications: Aspirin (Aspirin) 81 Mg Tab.chew 81 MG PO DAILY, TAB Furosemide (Furosemide) 40 Mg Tablet 40 MG PO DAILY, TAB Magnesium Oxide (Magnesium Oxide) 400 Mg Tablet 400 MG PO DAILY, TAB Potassium Chloride (K-Tab ER) 10 Meq Tablet.er 10 MEQ PO DAILY, TAB Spironolactone (Aldactone) 25 Mg Tablet 25 MG PO DAILY, TAB Patient Instructions Patient Instructions: If you have not heard from Dr. Waldrop's office by Saturday, Sep 07, 2022 for an appointment please call Dr. Durbin's office before noon on Saturday. Please schedule follow up appointment to see Dr. Durbin in 2 weeks JAYLIN DE OLIVEIRA Sep 05, 2022 10:00
--- NOTE | 2022-09-05 11:49 | Progress Note - Cardiology ---
Cardiology SOAP Progress Note Subjective: No cp or palp or syncope or shortness of breath Gen weakness and malaise, unchanged No n/v/d Wishes to go home Objective: I&O/Vital Signs 09/05/22 09/05/22 09/05/22 09/05/22 00:00 00:08 01:00 01:57 Temp 36.7 Pulse 85 82 Resp 25 B/P (MAP) 97/58 (71) Pulse Ox 93 97 O2 Delivery Nasal Cannula Nasal Cannula Nasal Cannula O2 Flow Rate 2.00 2.00 2.00 09/05/22 09/05/22 09/05/22 09/05/22 03:23 04:00 07:10 07:34 Temp 36.6 Pulse 87 92 Resp 19 B/P (MAP) 112/73 (86) Pulse Ox 95 100 O2 Delivery Nasal Cannula Nasal Cannula Nasal Cannula O2 Flow Rate 2.00 2.00 2.00 09/05/22 09/05/22 09/05/22 08:00 08:00 09:00 Temp 36.6 Pulse 96 93 Resp 22 17 B/P (MAP) 110/73 (85) 115/78 (90) Pulse Ox 94 96 O2 Delivery Nasal Cannula Nasal Cannula Room Air O2 Flow Rate 2.00 2.00 0.00 09/05/22 00:00 Intake Total 1230 ml Output Total 1300 ml Balance -70 ml Weight (Pounds): 250 Weight (Calculated Kilograms): 113.840473 Side: left Device Insertion Site: without hematoma Swelling: without swelling Bruising: mild bruising Constitutional: AAO x 3, well-developed, well-nourished Respiratory: No accessory muscle use, No respiratory distress; chest expansion is symmetric, chest is bilaterally symmetric, rhonchi (scattered) Cardiovascular: regular rate-rhythm; No JVD; S1 and S2 Gastrointestional: No tender; soft, round, audible bowel sounds Extremities: no lower extremity edema bilateral Neurologic/Psychiatric: other (moves all limb equally) Skin: No rash on exposed areas, No ulcerations on exposed areas Results/Procedures: Labs Laboratory Tests 09/05/22 05:15: White Blood Count 5.9, Red Blood Count 3.79L, Hemoglobin 12.1, Hematocrit 36, Mean Corpuscular Volume 96, Mean Corpuscular Hemoglobin 32, Mean Corpuscular Hemoglobin Concent 33, Red Cell Distribution Width 11.8, Platelet Count 112L, Mean Platelet Volume 10.9, Percent Immature Platelet Fraction 3.8, Sodium Level 137, Potassium Level 4.5, Chloride Level 106, Carbon Dioxide Level 22, Anion Gap 9, Blood Urea Nitrogen 31H, Creatinine 2.13H, Estimat Glomerular Filtration Rate 26, BUN/Creatinine Ratio 15, Glucose Level 94, Calcium Level 8.8, Magnesium Level 2.1 Microbiology 09/03/22 MRSA Screen - Final, Complete MRSA not isolated Laboratory Tests 09/04/22 04:50 09/05/22 05:15 A/P: Assessment: S/P Bi-V device implant by Dr. Waldrop on 09-03-22: - Dislodgement of all leads as shown on pacemaker interrogation and chest x-ray of 09/04/22 - Dr. Waldrop of EP services advises she be scheduled as an out patient for lead revision CKD-4 and pre-renal azotemia - renal function has again improved as of this morning Chronically low bp - worse after initiation of beta-yona and Entresto, now back to baseline (80 - 100 systolic) i.e., intolerant to beta-yoan, CONNER-inhib, ARB NICM - Cardiac cath of 10-03-21 showed no significant CAD. LVEF 20%. LVEDP 16 mmHg - Refuses Life-Vest - Coreg and Entresto started - then d/c'd because of intolerance (due to persistently low bp) - Echocadiogram of 06-28-22 shows LVEF 15-20%. Grade 1 diastolic dysfunction Chronic systolic CHF, NYHA class 3 - clinically improving Chronic tobacco use (average 2 ppd for more than 40 years) - cessation advised Abnormal ECG - ECG on 09/20/21: NSR and LBBB Plan: * Complex issue * S/P Bi-V implant by Dr. Waldrop on 09-03-22 - multiple lead displacement post procedure. I have spoken with Dr Waldrop in detail on the phone. Dr Waldrop wishes to revise the device on an outpatient basis after renal function has improved further * I spoke in detail with Mrs Maharaj regarding Dr Waldrop's recommendations. I recommended a Life Vest in the interim. She understands all of the issues. States will have the device revised as an outpatient. She refuses Life Vest (as she has done in the past). She does understand that the implanted device is nonfunctional at this time * Continue to hold diuretics because of marked pre-renal azotemia on top of CKD. This needs to be followed closely as an outpt. She is due to see Dr Waldrop next week and we have advised f/u at our office the following week * Dr Waldrop has advised against prophylatic antibiotics * Not suitable for CONNER or ARB d/t chronically low bp and due to renal failure SACHIN COLEMAN MD FACP [facility] CCDS Sep 05, 2022 11:49
== END 2022-09-05 11:43 | disposition home or self-care (01) ==
LOC: CATH 09:30 → ICU 14:49 → CATH 09-05 11:43
PROVIDERS: ATTEND Internal Medicine Cardiovascular Disease
DX: I50.23 Acute on chronic systolic (congestive) heart failure (principal); I44.7 Left bundle-branch block, unspecified; Z87.891 Personal history of nicotine dependence; E66.9 Obesity, unspecified; I42.0 Dilated cardiomyopathy
CPT/HCPCS: 33225; 71045; 71046; 80048; 80053 ×2; 83735; 85027 ×2; 87081; 93005 ×2; 94640; C1769 ×2; G0378; G0379; 36415

== ENCOUNTER 2022-09-29 13:08 | Emergency (ER) | payer MEDICAID ==
[~2022-09-29 13:08] MED LIST changes: -HEParin (CATH LAB) 1,000 ML IV ONE; -LIDOCAINE 1% INJ 30 ML (XYLOCAINE) VIAL ONE; -NORMAL SALINE 250 ML ONE; -NS IV 1000 ML 2,000 ML ONE; -VANCOMYCIN 1000 MG/VIAL ONE; -ceFAZolin INJECTION 0 MG ONE
--- NOTE | 2022-09-29 13:30 | ED Cough/URI ---
General Chief Complaint: Cough/Cold/Flu Symptoms Stated Complaint: COUGH Source: patient, old records History of Present Illness Date Seen by Provider: Sep 29, 2022 Time Seen by Provider: 13:11 Initial Comments 57-year-old female presenting with complaints of cough since September 03 when she had a pacemaker defibrillator implanted. The procedure on the was successful in implanting the device but the leads were all displaced. She had a revision done on September 14 and as of last week she states that the leads were in good position. She had the pacemaker defibrillator placed due to class III congestive heart failure. She also has underlying COPD and was smoking 2 packs of cigarettes a day. She states that she is currently down to 4 cigarettes a day. She has increased cough when she tries to lay down to go to sleep at night. She does use oxygen overnight. She also has been using some albuterol treatments with a nebulizer machine that she had at home. She believes that the albuterol is old but has been using it since it was all that she has not. She denies having a primary care provider currently but has an appointment on October 23 to establish care with Sheryl Schneider. She denies fever, chills, abdominal pain, nausea, vomiting, diarrhea, constipation, headache. She presents today because she states that she is tired of coughing and not sleeping well. She was concerned that she had exacerbated her COPD with these recent procedures. She has been taking Azalea Golden cough and cold medicine. Timing/Duration: other (Since Sep 03, worse at night/when laying down) Severity/Quality: severe (at night), productive cough (occasionally brings up phlegm into her throat and swallows it) Prior Episodes/Possible Cause: frequent episodes Modifying Factors: Worse With Coughing, Worse With Lying Down Associated Symptoms: chest pain/soreness (since had pacemaker/defibrillator placement), cough, shortness of breath (chronic and no worse than usual) Allergies and Home Medications Allergies Coded Allergies: Penicillins (Verified Allergy, Unknown, 03/02/19) Patient Home Medication List Home Medication List Reviewed: Yes Midodrine HCl (Midodrine HCl) 2.5 Mg Tablet, 2.5 MG PO BID, (Reported) Entered as Reported by: UZMA THOMAS on 10/12/21 0635 Rosuvastatin Calcium (Rosuvastatin Calcium) 20 Mg Tablet, 20 MG PO DAILY, (Reported) Entered as Reported by: TIMI OLIVIANT on 10/13/21 0850 Review of Systems Review of Systems Constitutional: No chills, No fever EENTM: nose congestion (mild) Respiratory: see HPI Cardiovascular: see HPI Gastrointestinal: no symptoms reported Genitourinary: no symptoms reported Musculoskeletal: no symptoms reported Skin: no symptoms reported Psychiatric/Neurological: No Symptoms Reported Past Oxxsmbf-Cawojj-Kktbwz Hx Patient Social History Tobacco Use?: Yes Tobacco type used: Cigarettes Smoking Status: Current Everyday Smoker Use of E-Cig and/or Vaping dev: No Substance use?: No Alcohol Use?: No Pt feels they are or have been: No Immunizations Up To Date First/Initial COVID19 Vaccinat: Not currently vaccinated Second COVID19 Vaccination Edi: Not currently vaccinated Third COVID19 Vaccination Date: Not currently vaccinated Seasonal Allergies Seasonal Allergies: Yes Past Medical History Surgery/Hospitalization HX: COPD, CHF, pacemaker, defibrillator Surgeries: Yes (GALLBLADDER, TONSILLECTOMY, HYSTERECTOMY) Gallbladder, Hysterectomy, Tonsillectomy Respiratory: Yes (NOC TIME OXYGEN/2L/NC) COPD Currently Using CPAP: No Currently Using BIPAP: No Cardiac: Yes (15% OF WORKING HEART FUNCTION PER PT) Cardiomyopathy, High Cholesterol Neurological: Yes Neuropathy [employer] History: Hysterectomy Genitourinary: Yes ("WEAK KIDNEY'S" - CHECKING LAB'S TODAY) Renal Failure Gastrointestinal: Yes Gall Bladder Disease Musculoskeletal: No Endocrine: No HEENT: Yes (GLASSES, NO TEETH) Cancer: No Psychosocial: Yes (SLEEP STUDY WAS SCHEDULED FOR 08/28/22 BUT PATIENT CANCELLED &MOVED 09/28 ) Sleep Difficulties, Anxiety Integumentary: No Blood Disorders: No (NO ISSUES WITH ANESTHESIA OR COMPLICATIONS WITH SURGERY) Family Medical History SOCIAL HISTORY: -SMOKES 3 PPD X 44 YEARS, CLAIMS NONE SINCE 10/03/21 -DENIES ETOH USE -DENIES DRUG USE CARDIAC CATH 10/03/[address] 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 No angiographically significant coronary artery disease. 2. Dilated cardiomyopathy, nonischemic, with global hypokinesis of left ventricle and left ventricular ejection fraction of 20%. 3. Left ventricular end-diastolic pressure is 16 mmHg. DISCUSSION AND RECOMMENDATIONS: She is being hospitalized for optimization of her regimen for cardiomyopathy and acute systolic congestive heart failure. She will be treated with beta blockers and Entresto. Diuretics will be used as needed and as tolerated. She may need a LifeVest for now. Physical Exam Vital Signs - First Documented 09/29/22 13:13 Temp 35.9 Pulse 90 Resp 18 B/P (MAP) 141/80 (100) Pulse Ox 95 O2 Delivery Room Air Capillary Refill : Height: 5'9.00" Weight: 250lbs. oz. 113.751200bf; 22.33 BMI Method:Stated General Appearance: WD/WN, no apparent distress HEENT: PERRL/EOMI, pharynx normal Neck: non-tender, full range of motion, supple, normal inspection Respiratory: lungs clear, no respiratory distress, no accessory muscle use, decreased breath sounds Cardiovascular: normal peripheral pulses, regular rate, rhythm Gastrointestinal: normal bowel sounds, soft, no pulsatile mass Extremities: normal range of motion, non-tender, normal capillary refill Neurologic/Psychiatric: alert, oriented x 3 Skin: normal color, warm/dry Progress/Results/Core Measures Suspected Sepsis SIRS Temperature: Pulse: Respiratory Rate: Blood Pressure / Mean: Results/Orders Lab Results Laboratory Tests Test 09/29/22 13:28 Range/Units Influenza Type A (RT-PCR) Not Detected Not Detecte Influenza Type B (RT-PCR) Not Detected Not Detecte SARS-CoV-2 RNA (RT-PCR) Not Detected Not Detecte My Orders Orders - FERNANDO BEAUCHAMP MD Covid 19 Inhouse Test (09/29/22 13:14) Influenza A And B By Pcr (09/29/22 13:14) Isolation Central Supply Req (09/29/22 13:14) Chest Pa/Lat (2 View) (09/29/22 13:14) Methylprednisolone Acetate Inj (Depo-Med (09/29/22 13:55) Dexamethasone Injection (Decadron Inje (09/29/22 13:55) Albuterol/Ipra Inhalation Soln (Duoneb I (09/29/22 13:55) Svn Small Volume Nebulizer (09/29/22 13:55) Vital Signs/I&O 09/29/22 09/29/22 13:13 14:32 Temp 35.9 Pulse 90 74 Resp 18 18 B/P (MAP) 141/80 (100) 136/75 Pulse Ox 95 94 O2 Delivery Room Air Room Air Capillary Refill : Progress Note #1: Progress Note Oxygen saturation is 95 to 97% on room air. Lungs are diminished in the bases but no wheezes or rales or rhonchi. Obtain swab to check for influenza and COVID. Two-view chest x-ray to evaluate for possible infiltrate versus pneumothorax versus effusion versus mass. Progress Note #2: Progress Note X-rays did not show any acute infiltrate or effusion. She has chronic COPD changes. Influenza and COVID swabs were both negative. Will give her steroids here in the ED to help from inflammation and cough standpoint. Ordered dexamethasone 10 mg IM with Depo-Medrol 80 mg IM x1. Encouraged to use plain Mucinex [id number] to help with some cough and congestion. Follow-up with clinic for continued concerns. Ordered a prescription of albuterol so she had some medicine to try for breathing treatments.. Diagnostic Imaging Diagonstic Imaging: Xray Plain Films/CT/US/NM/MRI: chest Comments [facility] [place], [place] NAME: ARABELLA ASHRAF [facility] REC#: [id number] PT STATUS: REG ER : 1965 PHYSICIAN: FERNANDO BEAUCHAMP MD ADMIT DATE: 09/29/22/ER FS Signed Date of Exam:09/29/22 CHEST PA/LAT (2 VIEW) INDICATION: Cough. COMPARISON: 09/04/2022. TECHNIQUE: Two radiographs of the chest dated 09/29/2022. FINDINGS: Pacer/AICD is again noted with battery pack overlying the left chest. The cardiac silhouette is enlarged though stable from the prior examination. No significant pulmonary vascular congestion. The lungs are again noted to be hyperinflated with minimal bibasilar scarring. No new focal pulmonary opacity. No significant pleural effusion. No pneumothorax. Scattered osseous degenerative changes without acute osseous abnormality. IMPRESSION: Stable cardiomegaly without pulmonary vascular congestion. Background chronic obstructive pulmonary disease without superimposed focal pulmonary opacity. Dictated by: Dictated on workstation # [id number] Dict: 09/29/22 1343 Trans: 09/29/22 1402 [id number] Interpreted by: DINA LA MD Electronically signed by: DINA LA MD 09/29/22 140 Reviewed: Reviewed by Me Departure Impression Primary Impression: Cough Qualified Codes: R05.3 - Chronic cough Additional Impression: COPD exacerbation Disposition: 01 HOME, SELF-CARE Condition: Stable Departure-Patient Inst. Decision time for Depature: 13:57 Referrals: NO,LOCAL PHYSICIAN (PCP) Primary Care Physician [facility] Patient Instructions: Cough, Adult ED, How to Use a Nebulizer ED, COPD Exacerbation, Adult ED, COPD Diet Add. Discharge Instructions: Use albuterol nebulizer treatment 2 to 3 times a day as needed for cough/shortness of breath. Use Plain Mucinex over the counter to help loosen any congestion in your lungs so when you cough it is easier to get it out. Check back with clinic for continued worsening or if not improving. Your xray and the swabs were negative for infection or pneumonia. All discharge instructions reviewed with patient and/or family. Voiced understanding. Scripts Albuterol Sulfate (Albuterol Sulfate) 2.5 Mg/3 Ml (0.083 %) Vial.neb 2.5 MG INH Q6H PRN for WHE/Cough for 30 Days, #150 ML 0 Refills Prov: FERNANDO BEAUCHAMP MD 09/29/22 FERNANDO BEAUCHAMP MD Sep 29, 2022 13:30
[2022-09-29] MEDS ORDERED: methylPREDNISolone 80 MG/ML (DEPO MEDROL) VIAL IM STA (13:55)
[2022-09-29] MEDS ORDERED: RT-ALBUTEROL/IPRATROPIUM 3 ML (DUONEB) VIAL INH STA (13:55)
--- NOTE | 2022-09-29 13:55 | Diagnostic Imaging Report ---
INDICATION: Cough. COMPARISON: 09/04/2022. TECHNIQUE: Two radiographs of the chest dated 09/29/2022. FINDINGS: Pacer/AICD is again noted with battery pack overlying the left chest. The cardiac silhouette is enlarged though stable from the prior examination. No significant pulmonary vascular congestion. The lungs are again noted to be hyperinflated with minimal bibasilar scarring. No new focal pulmonary opacity. No significant pleural effusion. No pneumothorax. Scattered osseous degenerative changes without acute osseous abnormality. IMPRESSION: Stable cardiomegaly without pulmonary vascular congestion. Background chronic obstructive pulmonary disease without superimposed focal pulmonary opacity. Dictated by: Dictated on workstation # [id number]
[2022-09-29 14:32] VITALS: BP 136/75
[2022-09-29] MEDS ORDERED: ALBU2.5V4 INH (14:42)
== END 2022-09-29 14:33 | disposition home or self-care (01) ==
LOC: EDUNIT# 13:08 → ER FS 13:10
DX: J44.1 Chronic obstructive pulmonary disease with (acute) exacerbation (principal); F17.210 Nicotine dependence, cigarettes, uncomplicated; Z28.310 Unvaccinated for COVID-19; Z20.822 Contact with and (suspected) exposure to COVID-19
CPT/HCPCS: 71046; 87636; 94640

== ENCOUNTER 2023-04-15 12:20 | Emergency (ER) | payer MEDICAID ==
[~2023-04-15] VITALS: Ht 175 cm; Wt 98.0 kg
[~2023-04-15 12:20] MED LIST changes: +ALBU2.5V4 INH; -POTA10CA43 PO; +POTA10CA44 PO
[2023-04-15] MEDS ORDERED: ONDANSETRON 4 MG (ZOFRAN) ORAL DISSOLVE TAB PO STA (12:32)
--- NOTE | 2023-04-15 12:34 | ED General ---
General Chief Complaint: General Problems/Pain Stated Complaint: SKAGGS; SOB Source of Information: Patient, Old Records Exam Limitations: No Limitations History of Present Illness Date Seen by Provider: April 15, 2023 Time Seen by Provider: 12:24 Initial Comments 58-year-old female with past medical history of COPD on nocturnal O2, HFrEF, and HTN most notably coming in due to nausea and nonbloody nonbilious diarrhea. Started this morning. Has not vomited yet, but feels like she needs to. Drink some water earlier and was able to keep that down. Denies any severe abdominal pain associated with it. Also notes that she has had a cough for the past 6 months which is unchanged. She does continue to smoke. Denies any objective fever, but states that she has felt slightly more warm. Otherwise denying any other acute complaints including any new chest pain, new shortness of breath, abdominal pain, dysuria, rash, weakness, numbness, neck stiffness, or any other concerns Allergies and Home Medications Allergies Coded Allergies: Penicillins (Verified Allergy, Unknown, 03/02/19) Patient Home Medication List Home Medication List Reviewed: Yes Albuterol Sulfate (Albuterol Sulfate) 2.5 Mg/3 Ml (0.083 %) Vial.neb, 2.5 MG INH Q6H PRN for WHE/Cough Prescribed by: FERNANDO BEAUCHAMP on 09/29/22 1442 Midodrine HCl (Midodrine HCl) 2.5 Mg Tablet, 2.5 MG PO BID, (Reported) Entered as Reported by: UZMA THOMAS on 10/12/21 0635 Rosuvastatin Calcium (Rosuvastatin Calcium) 20 Mg Tablet, 20 MG PO DAILY, (Reported) Entered as Reported by: TIMI BRISCOE on 10/13/21 0850 Review of Systems Review of Systems Constitutional: malaise EENTM: no symptoms reported Respiratory: cough Cardiovascular: No chest pain Gastrointestinal: diarrhea, nausea; No vomiting Genitourinary: no symptoms reported Musculoskeletal: no symptoms reported Skin: no symptoms reported Psychiatric/Neurological: No Symptoms Reported Hematologic/Lymphatic: No Symptoms Reported Past Phpyror-Zwfgtq-Zwdcbb Hx Patient Social History Tobacco Use?: Yes Tobacco type used: Cigarettes Use of E-Cig and/or Vaping dev: No Substance use?: No Alcohol Use?: No Immunizations Up To Date First/Initial COVID19 Vaccinat: Not currently vaccinated Second COVID19 Vaccination Edi: Not currently vaccinated Third COVID19 Vaccination Date: Not currently vaccinated Seasonal Allergies Seasonal Allergies: Yes Past Medical History Surgery/Hospitalization HX: COPD, CHF, pacemaker, defibrillator Surgeries: Yes (GALLBLADDER, TONSILLECTOMY, HYSTERECTOMY) Gallbladder, Hysterectomy, Tonsillectomy Respiratory: Yes (NOC TIME OXYGEN/2L/NC) COPD Currently Using CPAP: No Currently Using BIPAP: No Cardiac: Yes (15% OF WORKING HEART FUNCTION PER PT) Cardiomyopathy, High Cholesterol Neurological: Yes Neuropathy [employer]EE WORKER History: Hysterectomy Genitourinary: Yes ("WEAK KIDNEY'S" - CHECKING LAB'S TODAY) Renal Failure Gastrointestinal: Yes Gall Bladder Disease Musculoskeletal: No Endocrine: No HEENT: Yes (GLASSES, NO TEETH) Cancer: No Psychosocial: Yes (SLEEP STUDY WAS SCHEDULED FOR 08/28/22 BUT PATIENT CANCELLED &MOVED 09/28 ) Sleep Difficulties, Anxiety Integumentary: No Blood Disorders: No (NO ISSUES WITH ANESTHESIA OR COMPLICATIONS WITH SURGERY) Family Medical History SOCIAL HISTORY: -SMOKES 3 PPD X 44 YEARS, CLAIMS NONE SINCE 10/03/21 -DENIES ETOH USE -DENIES DRUG USE CARDIAC CATH 10/03/[address] 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 No angiographically significant coronary artery disease. 2. Dilated cardiomyopathy, nonischemic, with global hypokinesis of left ventricle and left ventricular ejection fraction of 20%. 3. Left ventricular end-diastolic pressure is 16 mmHg. DISCUSSION AND RECOMMENDATIONS: She is being hospitalized for optimization of her regimen for cardiomyopathy and acute systolic congestive heart failure. She will be treated with beta blockers and Entresto. Diuretics will be used as needed and as tolerated. She may need a LifeVest for now. Physical Exam Vital Signs Vital Signs - First Documented 04/15/23 12:34 Temp 37.5 Pulse 106 Resp 16 B/P (MAP) 162/95 (117) Pulse Ox 95 O2 Delivery Room Air Capillary Refill : Height, Weight, BMI Height: 5'9.00" Weight: 250lbs. oz. 113.865233ip; 22.33 BMI Method:Stated General Appearance: No Apparent Distress, WD/WN Eyes: Bilateral Eye Normal Inspection HEENT: PERRL/EOMI, Normal ENT Inspection, Pharynx Normal Neck: Full Range of Motion, Normal Inspection, Non Tender, Supple Respiratory: Chest Non Tender, Lungs Clear, Normal Breath Sounds, No Accessory Muscle Use, No Respiratory Distress Cardiovascular: Regular Rate, Rhythm, No Edema, Normal Peripheral Pulses Gastrointestinal: Normal Bowel Sounds, Non Tender, Soft; No Distended, No Guarding Back: Normal Inspection, No CVA Tenderness Extremity: Normal Capillary Refill, Normal Inspection, Normal Range of Motion, Non Tender, No Calf Tenderness, No Pedal Edema Neurologic/Psychiatric: Alert, No Motor/Sensory Deficits, Normal Mood/Affect Skin: Normal Color, Warm/Dry Progress/Results/Core Measures Suspected Sepsis SIRS Temperature: Pulse: Respiratory Rate: Blood Pressure / Mean: Results/Orders My Orders Orders - RAMONITA MILIAN MD Chest 1 View Ap/Pa Only (04/15/23 12:32) Ondansetron Oral Dissolve Tab (Zofran (04/15/23 12:32) Acetaminophen Tablet (Tylenol Tablet) (04/15/23 12:45) Acetaminophen Tablet (Tylenol Tablet) (04/15/23 12:39) Medications Given in ED Current Medications Medications Dose Ordered Sig/Jackson Route Start Time Stop Time Status Last Admin Dose Admin Acetaminophen 1,000 mg ONCE ONCE PO 04/15/23 12:45 04/15/23 12:46 DC 04/15/23 12:40 1,000 MG Vital Signs/I&O 04/15/23 12:34 Temp 37.5 Pulse 106 Resp 16 B/P (MAP) 162/95 (117) Pulse Ox 95 O2 Delivery Room Air Capillary Refill : Progress Note : Progress Note 58-year-old female with above history coming in due to cough, nausea, and diarrhea. ABCs were intact and vitals were stable on presentation on room air. She appears comfortable, lungs are clear, no clinical signs of heart failure exacerbation or COPD exacerbation. Chest x-ray ordered and interpreted by me showing no pneumonia, no pneumothorax, normal cardiac silhouette, and appears similar to prior. I did multiple repeat abdominal exams with it continuing to be soft and her having no tenderness. She is tolerating p.o. here. Because she is clinically well-appearing with no pain, we will forego labs and CT imaging at this time. Gave her Zofran and Tylenol, symptoms feeling a lot better. Given the nausea as well as diarrhea, very likely to be infectious in etiology. I will send prescriptions for nausea medicines and recommend fluids at home. I believe she is otherwise stable for discharge with outpatient follow-up. She was sent home with strict return precautions. Diagnostic Imaging Diagonstic Imaging: Xray (chest) Comments [facility] [place], [place] NAME: ARABELLA ASHRAF [facility] REC#: [id number] PT STATUS: REG ER : 1965 PHYSICIAN: RAMONITA MILIAN MD ADMIT DATE: 04/15/23/ER FS Draft Date of Exam:04/15/23 CHEST 1 VIEW AP/PA ONLY INDICATION: Dyspnea with productive cough. COMPARISON: 09/29/2022. DISCUSSION: Single portable upright view of the chest was obtained. Cardiomegaly is stable. No focal consolidation. No pleural fluid or pneumothorax. Left-sided pacemaker stable. No osseous abnormality. IMPRESSION: 1. No acute cardiopulmonary process. Dictated on workstation # [id number] Dict: 04/15/23 1240 Trans: 04/15/23 1244 CV [id number] Interpreted by: ANTONIO MERRILL MD Electronically signed by: Departure Impression Primary Impression: Nausea alone Additional Impression: Diarrhea Qualified Codes: R19.7 - Diarrhea, unspecified Disposition: 01 HOME, SELF-CARE Condition: Stable Departure-Patient Inst. Decision time for Depature: 13:05 Referrals: AMAN MCFARLANE APRN (PCP) Primary Care Physician [facility] (Family) Primary Care Physician Patient Instructions: Nausea and Vomiting, Adult ED Add. Discharge Instructions: You likely have a GI bug that is causing the nausea and diarrhea. Give this several days to improve. [facility] (they are the only one open today). Take Tylenol as needed for fever, body aches, or when you are not feeling well. Take 1000 g every 6 hours. Your chest x-ray looked clear today. Please follow-up with your regular doctor if you are not showing improvement in the next 2 to 3 days. If you begin having severe abdominal pain that will not go away even after the vomiting or diarrhea episodes, then please be seen again in an ER (typically more than the cramping feeling of vomiting/diarrhea) Scripts Promethazine HCl (Promethazine Suppository) 25 Mg Supp.rect 25 MG RC Q6H PRN for NAUSEA/VOMITING-2ND LINE for 3 Days, #12 SUPP.RECT Prov: RAMONITA MILIAN MD 04/15/23 Ondansetron (Ondansetron Odt) 4 Mg Tab.rapdis 4 MG SL Q6H PRN for NAUSEA/VOMITING for 5 Days, #20 TAB Prov: RAMONITA MILIAN MD 04/15/23 Work/School Note: Work Release Form Date Seen in the Emergency Department: April 15, 2023 Return to Work: April 17, 2023 Restrictions: Return-No Fever (24hrs), Return-No Vomiting(24hrs) RAMONITA MILIAN MD April 15, 2023 12:34
[2023-04-15] MEDS ORDERED: ACETAMINOPHEN 500 MG TAB (TYLENOL) ONE (12:39)
--- NOTE | 2023-04-15 12:44 | Diagnostic Imaging Report ---
INDICATION: Dyspnea with productive cough. COMPARISON: 09/29/2022. DISCUSSION: Single portable upright view of the chest was obtained. Cardiomegaly is stable. No focal consolidation. No pleural fluid or pneumothorax. Left-sided pacemaker stable. No osseous abnormality. IMPRESSION: 1. No acute cardiopulmonary process. Dictated by: Dictated on workstation # [id number]
[2023-04-15] MEDS ORDERED: ACETAMINOPHEN 500 MG TAB (TYLENOL) PO ONE (12:45)
[2023-04-15] MEDS ORDERED: PROM25SU44 RC (13:00)
[2023-04-15] MEDS ORDERED: ONDA4TAB11 SL (13:00)
[2023-04-15 13:01] VITALS: BP 162/95
== END 2023-04-15 13:02 | disposition home or self-care (01) ==
LOC: EDUNIT# 12:20 → ER FS 12:22
DX: R11.0 Nausea (principal); R19.7 Diarrhea, unspecified; J44.9 Chronic obstructive pulmonary disease, unspecified; F17.210 Nicotine dependence, cigarettes, uncomplicated; Z99.81 Dependence on supplemental oxygen; Z28.310 Unvaccinated for COVID-19
CPT/HCPCS: 71045

== ENCOUNTER → 2023-05-22 | Outpatient (CLI) | payer MEDICAID ==
[~2023-05-22] MED LIST changes: +ONDA4TAB11 SL; +PROM25SU44 RC
== END ==
LOC: CARD 12:26
PROVIDERS: ATTEND Nurse Practitioner Family
DX: I51.7 Cardiomegaly (principal); I42.0 Dilated cardiomyopathy
CPT/HCPCS: 93306

== ENCOUNTER 2023-07-04 12:27 | Emergency (ER) | payer MEDICAID ==
[~2023-07-04 12:27] MED LIST changes: +POTA-185 PO; -POTA10CA44 PO; +POTA10CA84 PO; -POTA10TA PO; -ROSU20TA32 PO; +ROSU20TA73 PO
[2023-07-04 12:40] LABS: BILIRUBIN,URINE 1+ (NEGATIVE); CLARITY,URINE CLOUDY; COLOR,URINE BROWN; GLUCOSE, URINE (UA) NEGATIVE (NEGATIVE); KETONES,URINE NEGATIVE (NEGATIVE); LEUKOCYTE ESTERASE ,URINE 1+ (NEGATIVE); NITRITE,URINE NEGATIVE (NEGATIVE); PH,URINE 6.5 (5-9); PROTEIN,URINE 2+ (NEGATIVE)
--- NOTE | 2023-07-04 12:40 | ED GU-Female ---
General Chief Complaint: - Reproductive Stated Complaint: URINARY PAIN; DUDLEY FLANK PAIN; HEMATURIA Source: patient Exam Limitations: no limitations History of Present Illness Date Seen by Provider: Jul 04, 2023 Time Seen by Provider: 12:29 Initial Comments 58-year-old female with past medical history of frequent UTIs coming in [facility] she has UTI. For the past couple weeks, she has had significant dysuria, now developing some flank discomfort and hematuria. She has never had kidney stones, and states this feels similar to the prior UTIs. Denies any fever, did have 1 episode of nonbloody nonbilious vomiting in the middle the night. Otherwise denying any other acute complaints Allergies and Home Medications Allergies Coded Allergies: Penicillins (Verified Allergy, Unknown, 03/02/19) Patient Home Medication List Home Medication List Reviewed: Yes Albuterol Sulfate (Albuterol Sulfate) 2.5 Mg/3 Ml (0.083 %) Vial.neb, 2.5 MG INH Q6H PRN for WHE/Cough Prescribed by: FERNANDO BEAUCHAMP on 09/29/22 1442 Cefdinir (Cefdinir) 300 Mg Capsule, 300 MG PO BID Prescribed by: RAMONITA MILIAN on 07/04/23 1322 Midodrine HCl (Midodrine HCl) 2.5 Mg Tablet, 2.5 MG PO BID, (Reported) Entered as Reported by: UZMA THOMAS on 10/12/21 0635 Ondansetron (Ondansetron Odt) 4 Mg Tab.rapdis, 4 MG SL Q6H PRN for NAUSEA/VOMITING Prescribed by: RAMONITA MILIAN on 04/15/23 1300 Promethazine HCl (Promethazine Suppository) 25 Mg Supp.rect, 25 MG RC Q6H PRN for NAUSEA/VOMITING-2ND LINE Prescribed by: RAMONITA MILIAN on 04/15/23 1300 Rosuvastatin Calcium (Rosuvastatin Calcium) 20 Mg Tablet, 20 MG PO DAILY, (Reported) Entered as Reported by: TIMI BRISCOE on 10/13/21 0850 Review of Systems Review of Systems Constitutional: No fever EENTM: no symptoms reported Cardiovascular: no symptoms reported Gastrointestinal: see HPI Genitourinary: see HPI Musculoskeletal: no symptoms reported Skin: no symptoms reported Psychiatric/Neurological: No Symptoms Reported Past Bbzfkfm-Hezsob-Elhtpf Hx Immunizations Up To Date First/Initial COVID19 Vaccinat: Not currently vaccinated Second COVID19 Vaccination Edi: Not currently vaccinated Third COVID19 Vaccination Date: Not currently vaccinated Seasonal Allergies Seasonal Allergies: Yes Past Medical History Surgery/Hospitalization HX: COPD, CHF, pacemaker, defibrillator Surgeries: Yes (GALLBLADDER, TONSILLECTOMY, HYSTERECTOMY) Gallbladder, Hysterectomy, Tonsillectomy Respiratory: Yes (NOC TIME OXYGEN/2L/NC) COPD Currently Using CPAP: No Currently Using BIPAP: No Cardiac: Yes (15% OF WORKING HEART FUNCTION PER PT) Cardiomyopathy, High Cholesterol Neurological: Yes Neuropathy [employer] History: Hysterectomy Genitourinary: Yes ("WEAK KIDNEY'S" - CHECKING LAB'S TODAY) Renal Failure Gastrointestinal: Yes Gall Bladder Disease Musculoskeletal: No Endocrine: No HEENT: Yes (GLASSES, NO TEETH) Cancer: No Psychosocial: Yes (SLEEP STUDY WAS SCHEDULED FOR 08/28/22 BUT PATIENT CANCELLED &MOVED 09/28 ) Sleep Difficulties, Anxiety Integumentary: No Blood Disorders: No (NO ISSUES WITH ANESTHESIA OR COMPLICATIONS WITH SURGERY) Family Medical History SOCIAL HISTORY: -SMOKES 3 PPD X 44 YEARS, CLAIMS NONE SINCE 10/03/21 -DENIES ETOH USE -DENIES DRUG USE CARDIAC CATH 10/03/[address] 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 No angiographically significant coronary artery disease. 2. Dilated cardiomyopathy, nonischemic, with global hypokinesis of left ventricle and left ventricular ejection fraction of 20%. 3. Left ventricular end-diastolic pressure is 16 mmHg. DISCUSSION AND RECOMMENDATIONS: She is being hospitalized for optimization of her regimen for cardiomyopathy and acute systolic congestive heart failure. She will be treated with beta blockers and Entresto. Diuretics will be used as needed and as tolerated. She may need a LifeVest for now. Physical Exam Vital Signs Vital Signs - First Documented 07/04/23 12:30 Temp 36.5 Pulse 100 Resp 16 B/P (MAP) 151/80 (103) Pulse Ox 100 O2 Delivery Room Air Capillary Refill : Height, Weight, BMI Height: 5'9.00" Weight: 250lbs. oz. 113.778430oc; 32.00 BMI Method:Stated General Appearance: WD/WN, no apparent distress HEENT: PERRL/EOMI, normal ENT inspection, pharynx normal Neck: non-tender, full range of motion, supple, normal inspection Cardiovascular: regular rate, rhythm Respiratory: chest non-tender, lungs clear, normal breath sounds, no respiratory distress, no accessory muscle use Gastrointestinal: normal bowel sounds, non tender, soft; No distended, No guarding, No rebound Back: normal inspection, no CVA tenderness, no vertebral tenderness Extremities: normal range of motion, non-tender, normal inspection, no pedal edema, no calf tenderness, normal capillary refill Neurologic/Psychiatric: no motor/sensory deficits, alert, normal mood/affect Skin: normal color, warm/dry Progress/Results/Core Measures Suspected Sepsis SIRS Temperature: Pulse: Respiratory Rate: Blood Pressure / Mean: Results/Orders Lab Results Laboratory Tests Test 07/04/23 12:30 Range/Units Urine Color BROWN H Urine Clarity CLOUDY Urine pH 6.5 5-9 Urine Specific [place] 1.020 1.016-1.022 Urine Protein 2+ H NEGATIVE Urine Glucose (UA) NEGATIVE NEGATIVE Urine Ketones NEGATIVE NEGATIVE Urine Nitrite NEGATIVE NEGATIVE Urine Bilirubin 1+ H NEGATIVE Urine Urobilinogen 1.0 < = 1.0 MG/DL Urine Leukocyte Esterase 1+ H NEGATIVE Urine RBC (Auto) 3+ H NEGATIVE Urine RBC >100 H /HPF Urine WBC 5-10 H /HPF Urine Squamous Epithelial Cells 0-2 /HPF Urine Crystals NONE /LPF Urine Bacteria FEW H /HPF Urine Casts NONE /LPF Urine Mucus NEGATIVE /LPF Urine Culture Indicated YES My Orders Orders - RAMONITA MILIAN MD Ua Culture If Indicated (07/04/23 12:31) Urine Culture (07/04/23 12:30) Ct Abdomen/Pelvis Wo (07/04/23 12:50) Ceftriaxone Iv/Im (Ceftriaxone Iv/Im) (07/04/23 13:30) Lidocaine 1% Inj 20 Ml (Xylocaine 1% Inj (07/04/23 13:30) Vital Signs/I&O 07/04/23 12:30 Temp 36.5 Pulse 100 Resp 16 B/P (MAP) 151/80 (103) Pulse Ox 100 O2 Delivery Room Air Capillary Refill : Progress Note : Progress Note 58-year-old female with above history coming in due to dysuria and hematuria. ABCs were intact and vitals are stable on presentation. No significant abdominal tenderness and no flank pain to palpation or percussion. She does have subjective flank discomfort. No systemic signs of illness on exam and she is well-appearing. Urinalysis with a large amount of blood, not classic for i nfection. CT abdomen pelvis negative for ureterolithiasis on my interpretation. Essentially read as negative for acute findings per the radiologist. We will treat this as infection due to the cystitis with hematuria with IM ceftriaxone here followed by prescription. I believe she stable for discharge with outpatient follow-up. She was sent home with strict return precautions. Of note is listed she is allergic to penicillin, but the patient states this was when she was very young and she has tolerated ampicillin since then. Diagnostic Imaging Diagonstic Imaging: CT (abd/pelvis) Comments NAME: [facility]LLA [facility] REC#: [id number] PT STATUS: REG ER : 1965 PHYSICIAN: RAMONITA MILIAN MD ADMIT DATE: 07/04/23/ER FS Draft Date of Exam:07/04/23 CT ABDOMEN/PELVIS WO EXAMINATION: CT abdomen and pelvis without contrast. TECHNIQUE: Multiple contiguous axial images were obtained through the abdomen and pelvis without the use of intravenous contrast. All CT scans use one or more of the following dose optimizing techniques: automated exposure control, MA and/or KvP adjustment based on patient size and exam type or iterative reconstruction. HISTORY: flank pain, hematuria COMPARISON: None available. FINDINGS: Lung bases: Bibasilar dependent atelectasis. Solid organs: The liver is normal. The gallbladder is surgically absent. There is no biliary ductal dilation. Pancreas is normal. Spleen is normal. Adrenal glands are normal. There is a nonobstructing 0.2 cm right renal calculus. No hydronephrosis. Bowel: The stomach and small bowel are normal without obstruction. The colon is normal. The appendix is normal. Peritoneum: There is no intraperitoneal free fluid or free air. No suspicious lymphadenopathy. Vasculature: Calcification of the aorta without aneurysm. Musculoskeletal: Degenerative changes of the spine without suspicious osseous lesion or compression fracture. Pelvis: The uterus is surgically absent. No adnexal mass. The urinary bladder is normal. IMPRESSION: 1. A nonobstructing 0.2 cm right renal calculus without hydronephrosis. No obstructing renal calculus. 2. No other acute abnormality in the abdomen or pelvis. Dictated on workstation # [id number] Dict: 07/04/23 1305 Trans: 07/04/23 1313 [id number] Interpreted by: OLIVIER AGUAYO DO Electronically signed by: Departure Impression Primary Impression: Cystitis Disposition: 01 HOME, SELF-CARE Condition: Stable Departure-Patient Inst. Decision time for Depature: 13:30 Referrals: AMAN MCFARLANE APRN (PCP) Primary Care Physician [facility] (Family) Primary Care Physician Patient Instructions: Acute Cystitis (DC) Add. Discharge Instructions: The bleeding is likely due to infection since there is no kidney stone on the CT imaging. You will be on antibiotics for the next 10 days starting today. Take your first dose of pill antibiotics tomorrow. Scripts Cefdinir (Cefdinir) 300 Mg Capsule 300 MG PO BID for 9 Days, #18 CAP 0 Refills Prov: RAMONITA MILIAN MD 07/04/23 RAMONITA MILIAN MD Jul 04, 2023 12:40
[2023-07-04 12:47] LABS: BACTERIA,URINE FEW /HPF; RBC,URINE >100 /HPF; SQUAMOUS EPITHELIAL CELL,UR 0-2 /HPF
--- NOTE | 2023-07-04 13:13 | Diagnostic Imaging Report ---
EXAMINATION: CT abdomen and pelvis without contrast. TECHNIQUE: Multiple contiguous axial images were obtained through the abdomen and pelvis without the use of intravenous contrast. All CT scans use one or more of the following dose optimizing techniques: automated exposure control, MA and/or KvP adjustment based on patient size and exam type or iterative reconstruction. HISTORY: flank pain, hematuria COMPARISON: None available. FINDINGS: Lung bases: Bibasilar dependent atelectasis. Solid organs: The liver is normal. The gallbladder is surgically absent. There is no biliary ductal dilation. Pancreas is normal. Spleen is normal. Adrenal glands are normal. There is a nonobstructing 0.2 cm right renal calculus. No hydronephrosis. Bowel: The stomach and small bowel are normal without obstruction. The colon is normal. The appendix is normal. Peritoneum: There is no intraperitoneal free fluid or free air. No suspicious lymphadenopathy. Vasculature: Calcification of the aorta without aneurysm. Musculoskeletal: Degenerative changes of the spine without suspicious osseous lesion or compression fracture. Pelvis: The uterus is surgically absent. No adnexal mass. The urinary bladder is normal. IMPRESSION: 1. A nonobstructing 0.2 cm right renal calculus without hydronephrosis. No obstructing renal calculus. 2. No other acute abnormality in the abdomen or pelvis. Dictated by: Dictated on workstation # [id number]
[2023-07-04] MEDS ORDERED: CEFD300C3 PO ×2 (13:22→13:25)
[2023-07-04] MEDS ORDERED: LIDOCAINE 1% INJ 20 ML VIAL INJ ONE (13:30)
[2023-07-04] MEDS ORDERED: cefTRIAXone 1,000 MG VIAL IV/IM IM ONE (13:30)
[2023-07-04 13:31] VITALS: BP 151/80
== END 2023-07-04 13:32 | disposition home or self-care (01) ==
LOC: EDUNIT# 12:27 → ER FS 12:28
DX: N30.91 Cystitis, unspecified with hematuria (principal); F17.210 Nicotine dependence, cigarettes, uncomplicated; J44.9 Chronic obstructive pulmonary disease, unspecified; Z99.81 Dependence on supplemental oxygen; Z87.440 Personal history of urinary (tract) infections; Z28.310 Unvaccinated for COVID-19; Z88.0 Allergy status to penicillin
CPT/HCPCS: 74176; 81000; 87077; 87088; 87186